=== PATIENT | female | born 1970 | race Caucasian/White ===

== ENCOUNTER → 2019-05-30 09:02 | Outpatient (CLI) | payer BC, SELFPAY ==
--- NOTE | 2019-05-30 09:06 | RAD_ITS ---
STUDY: X-RAY - LEFT FOOT CLINICAL: Female, 48 years old. Injury, fall last night -- pain distal medial tibia, anterior/medial w/o navicular pain and mild distal/anterior fibular with exquisite pain/hematoma at proximal cuboid TECHNIQUE: 3 view(s) of the foot. COMPARISON: None. FINDINGS: Normal talus, calcaneus, and tarsal bones. Normal visualized subtalar, talonavicular, calcaneocuboid, tarsal and tarsometatarsal articulations. Normal metatarsi. Normal metatarsophalangeal joint of the great toe. Normal tibial and fibular sesamoid bones. Normal interphalangeal joint of the great toe. Normal phalanges of the great toe. Normal second through fifth metatarsophalangeal joints. Normal interphalangeal joints and phalanges of the lesser toes. The soft tissue structures are unremarkable. RAD/Foot min 3 Views IMPRESSION: Normal x-ray examination of the foot. Electronically Signed: Guillaume Leroy, at 9:36 EDT , Service support ,
--- NOTE | 2019-05-30 09:06 | RAD_ITS ---
STUDY: X-RAY - LEFT ANKLE REASON FOR EXAM: Female, 48 years old. Injury, fall last night -- pain distal medial tibia, anterior/medial w/o navicular pain and mild distal/anterior fibular with exquisite pain/hematoma at proximal cuboid TECHNIQUE: 3 view(s) of the ankle. COMPARISON: None. FINDINGS: Normal visualized distal tibia and fibula. Normal medial and lateral malleoli. Normal tibiotalar articulation and ankle mortise. Normal visualized talus and calcaneus. The visualized subtalar, talonavicular, calcaneocuboid and tarsal articulations are normal. The soft tissue structures are unremarkable. RAD/Ankle min 3 Views IMPRESSION: Normal x-ray examination of the ankle. Electronically Signed: Guillaume Leroy, at 9:36 EDT , Service support ,
== END ==
PROVIDERS: PCP Family Medicine; Referring Provider Family Medicine; Visit Provider Family Medicine
DX: M25.572 Pain in left ankle and joints of left foot (principal); M79.672 Pain in left foot
CPT/HCPCS: 73610; 73630

== ENCOUNTER → 2019-07-27 12:34 | Outpatient (CLI) | payer BC, SELFPAY ==
--- NOTE | 2019-07-27 12:37 | BI_ITS ---
MAMMOGRAPHY - BILATERAL SCREENING REASON FOR EXAM: Female, 48 years old. Routine annual screening examination. PERTINENT HISTORY: Grandmother with breast cancer. TECHNIQUE: Digital bilateral breast brianna (3D mammographic acquisition) in the CC and MLO projections. 2-D mediolateral oblique (MLO) and craniocaudad (CC) views of both breasts were obtained. CAD: Full Field Digital Mammography with Computer Added Detection was performed. COMPARISON: Comparison is made with prior examination dated August 31, 2012. FINDINGS: Breast Composition: The breasts are heterogeneously dense, which may obscure small masses. There is a 2.7 cm x 2.2 cm slightly lobular nodule in the upper deep lateral aspect of the right breast. This also evidence of a 1.2 cm lymph node in the right axillary region. Correlation with ultrasound of these 2 densities is recommended. No other significant abnormalities are identified. BI/SCREEN MAMM (CAD) W/BRAINNA BILAT IMPRESSION: Nodular density in the upper outer quadrant of the right breast as well as in the right axillary region. Correlation with ultrasound is recommended. ASSESSMENT CATEGORY: BIRADS Category 0: Incomplete. Need additional imaging evaluation. A letter regarding these results will be sent to the patient by the facility within 30 days. Approximately 10% of breast cancers are not detected by mammography. A normal mammogram should not delay biopsy of a clinically suspicious abnormality. [id number] Electronically Signed: Guillaume Leroy, at 13:21 EDT , Service support ,
== END ==
PROVIDERS: PCP Family Medicine; Referring Provider Family Medicine; Visit Provider Family Medicine
DX: Z12.31 Encounter for screening mammogram for malignant neoplasm of breast (principal)
CPT/HCPCS: 77063; 77067

== ENCOUNTER → 2019-08-03 13:03 | Outpatient (CLI) | payer BC, SELFPAY ==
--- NOTE | 2019-08-03 13:16 | US_ITS ---
STUDY: ULTRASOUND BREAST - RIGHT REASON FOR EXAM: Female, 48 years old. Abnormal mammogram TECHNIQUE: Axial and longitudinal images of the RIGHT breast were performed with a high resolution ultrasound transducer. # OF IMAGES: 34 COMPARISON: Mammogram from 07/27/2019 FINDINGS: RIGHT Breast: The previously noted mass in the right upper outer quadrant on mammogram as shown by ultrasound to represent a hypoechoic irregular 3 x 8 x 3.3 x 2.3 cm partially shadowing nodule containing blood flow. This is concerning for neoplastic process and biopsy is recommended for further evaluation. Additionally, there are enlarged abnormal-appearing axillary lymph nodes. The largest 2 measure 2.8 x 2.3 x 1.57 m, and 1.9 x 1.7 x 1.8 cm. US/Breast Limited Unilateral IMPRESSION: Suspicious hypoechoic partially shadowing poorly defined mass in the upper outer quadrant of the right breast with blood flow. Biopsy recommended for further evaluation Suspicious enlarged right axillary lymph nodes ASSESSMENT CATEGORY: BIRADS Category 5: Highly Suggestive of Malignancy - Appropriate Action Should Be Taken. A letter regarding these results will be sent to the patient by the facility within 30 days. Electronically Signed: Alex Hogue MD at 14:15 EDT , Service support ,
== END ==
LOC: OPBI 13:04
PROVIDERS: PCP Family Medicine; Referring Provider Family Medicine; Visit Provider Family Medicine
DX: R92.8 Other abnormal and inconclusive findings on diagnostic imaging of breast (principal)
CPT/HCPCS: 76642

== ENCOUNTER → 2019-08-07 | Outpatient (CLI) | payer BC, SELFPAY ==
--- NOTE | 2019-08-07 | LYMN_PTH ---
PATIENT: CÉSAR CASTELLANOS LOC: [facility] U#:[id number] AGE/SX: 48/F ROOM: RE08/07/[address]: Dr. Leon Cabrera MD : 1970 BED: DIS: 08/07/2019 SPEC #: [id number] RECD: 08/07/19 12:26 STATUS: AZIZA MISHEL #: [id number] THOMAS: 08/07/19 00:[address]: Leon Cabrera DEPT: SURGICAL PATHOLOGY RECD BY: Rock Franklin ENTERED: 08/07/19 12:27 SP TYPE: LYMPH NODE OTHR DR: Dr. Yamila Roth MD Tissues: A - LYMPH NODE BIOPSY B - Right breast, NOS Procedures: Surgery Specimen Level IV HEADER OPERATION: Ultrasound-guided needle core biopsy of right breast and right axillary lymph node PRE-OP DIAGNOSIS: Abnormal right mammogram TISSUE SUBMITTED: A - Right breast tissue, B - Right axillary lymph node tissue MICROSCOPIC DIAGNOSIS A. Right breast tissue, core biopsy: Invasive ductal carcinoma with the following characteristics: Maximal length - 10 millimeters Nuclear grade - 3/3 Other findings - tumor necrosis. See comment. B. Right axillary lymph node, needle core biopsy: Metastatic carcinoma consistent with breast primary. See comment. AM:linda 08/08/19 COMMENT A. ER/NV/Rvu5tro studies are being performed on sections of tumor and the results from this study will be reported separately ([id number]). B. Immunohistochemistry ([id number]) supports the above diagnosis. Case has been reviewed in consultation with Dr. Murillo who concurs with the above diagnosis. IDC:SJ MICROSCOPIC DESCRIPTION Slides are reviewed. GROSS DESCRIPTION A - Received in fixative is one container labeled with the patient's name and designated right breast biopsy. The specimen consists of multiple elongated fragments of lawson-yellow fibroadipose tissue that in aggregate measure 2 x 0.3 x 0.1 cm. The entire specimen is submitted in one cassette. B - Received in fixative is one container labeled with the patient's name and designated right axillary lymph node. The specimen consists of multiple elongated fragments of lawson-yellow adipose tissue that in aggregate measure 2 x 0.4 x 0.1 cm. The entire specimen is submitted in one cassette. / MIKA:linda 08/07/19 TC:0 CPT: 62021 x2
--- NOTE | 2019-08-07 | IMM_PTH ---
PATIENT: CÉSAR CASTELLANOS LOC: [facility] U#:[id number] AGE/SX: 48/F ROOM: RE08/07/[address]: Dr. Leon Cabrera MD : 1970 BED: DIS: 08/07/2019 SPEC #: [id number] RECD: 08/08/19 11:58 STATUS: AZIZA REBecca #: [id number] THOMAS: 08/07/19 00:[address]: Leon Cabrera DEPT: IMMUNOHISTOCHEMISTRY RECD BY: Carisa Shoemaker ENTERED: 08/08/19 12:00 SP TYPE: IMMUNO OTHR DR: Dr. Yamila Roth MD Tissues: A - Right breast, NOS B - Axillary lymph node, NOS Procedures: CK8 (initial) CALPONIN-1 (add) CK5-6 (add) CK7 (add) LOPEZ-2 (add) E-CAD (add) ER (add) HER2 PETER (add) KI-67 (add) MAMM (add) P53 (add) AR (add) GATA3 (add) P40 (add) PHYSICIAN & [address] [address] SPECIMEN INFORMATION: Tissue Source: A - Right breast tissue, B - Right axillary lymph node tissue Clinical Info: Abnormal right mammogram Specimen Number: [id number] A & B CPT code: 52578 x2, 48472 x10, 40649 x3 METHODOLOGY: Deparaffinized sections of prefer/formalin-fixed tissue or PAP/DQ stained slides are incubated with monoclonal/polyclonal antibodies/oligonucleotide probes. Localization is made via biotin free immunoperoxidase method. Appropriate controls are performed and reacted as expected. Results on target cell population are indicated in the following table: RESULTS: ANTIBODY / CLONE RESULT Block A P53 (DO-7) negative Ki-67 (30-9) positive, 85% CK8 (17tzccP82) positive CK5-6 (D5 & 1684) negative Calponin-1 (YF639S) negative P40 (BC28) negative E-Cad (ECH-6) positive LOPEZ-2 (SP21) positive MORPHOMETRIC ANALYSIS ER (clone 6F11) 0% AR (clone 16/1E2) 0% Her-2Neu (clone CB11) 3+ Block B GATA3 (L50-823) positive CK7 (OV-TL12/30) positive CK8 (57yrxgG29) positive Mammaglobin (31A5) positive The prognostic test for HER2 is performed on formalin-fixed paraffin embedded tissue. A 3+ (positive) staining pattern is defined as intense, homogeneous, complete, circumferential membranous staining in >10% of contiguous tumor cells. A similar weak (2+) staining pattern is interpreted as equivocal. ANA follow-up testing is recommended for all equivocal cases. Positivity/negativity for ER/AR is reported if > or < 1% of the tumor cells are immuno- reactive, respectively. The ASCO/CAP criteria is used for scoring. Reference: Journal of Clinical Oncology, 2013; 31:6567-1507 & 2010; 16:1758-7558. Duration of fixation: 5.5 Hrs; Sample Adequate: Yes. These assays have not been validated on decalcified tissues. Results should be interpreted with caution given the likelihood of false negativity on decalcified specimens. These tests were developed and their performance characteristics determined by [facility]. They may not have been cleared or approved by the U.S. Food and Drug Administration. The FDA has determined that such clearance or approval is not necessary. The above immunohistochemical/dualISH markers are ordered and reviewed by the Pathologist. INTERPRETATION: A. Right breast tissue, core biopsy: Invasive ductal carcinoma, nuclear grade 3/3. Negative for estrogen receptors (unfavorable prognostic indicator). Negative for progesterone receptors (unfavorable prognostic indicator). Positive for overexpression of SIJ2qri. B. Right axillary lymph node tissue, core biopsy: Metastatic breast carcinoma. AM:linda 08/09/19
[2019-08-07 11:06] VITALS: BMI 25.5
== END | disposition home or self-care (01) ==
LOC: LABSPEC 12:16
PROVIDERS: PCP Family Medicine; Referring Provider Surgery; Visit Provider Surgery
DX: R92.8 Other abnormal and inconclusive findings on diagnostic imaging of breast (principal)
CPT/HCPCS: 88305; 88341; 88342

== ENCOUNTER → 2019-08-21 14:38 | Outpatient (CLI) | payer BC, SELFPAY ==
[2019-08-15 15:34] VITALS: BMI 27.2
--- NOTE | 2019-08-21 14:39 | CT_ITS ---
STUDY: CT CHEST WITH CONTRAST REASON FOR EXAM: Female, 48 years old. Breast cancer screening. RADIATION DOSAGE (If Supplied By Facility): CTDIvol = ( 11.79 ) mGy, DLP = ( 271.31 ) mGycm TECHNIQUE: Transaxial imaging was performed following intravenous administration of Oral and amp; IV Readi-CAT and amp; 100mL Isovue-300. Multiplanar coronal and sagittal images were reformatted. Individualized dose optimization techniques were used for this CT. COMPARISON: CT of the abdomen and pelvis, August 21, 2019. FINDINGS: The lungs are normal. There is a 2 x 0.9 x 0.9 cm density along the posterior aspect of the diaphragm (image 76, series 6. It is uncertain whether this represents a pleural-based mass or small diaphragmatic hernia. There is no other evidence of pleural abnormality. Normal heart and pericardium. There is paratracheal, precarinal, AP window and subcarinal lymphadenopathy Normal hilar regions. Normal enhanced pulmonary arteries. Normal aorta arch and descending thoracic aorta. Normal osseous structures. No evidence of bony metastases. There are large right axillary lymph nodes. The largest is bilobed and measures 2.4 x 1.7 x 2.9 cm (image 98 of series 601). There are normal appearing lymph nodes in left axilla. There is a spiculated mass in the lateral aspect of the right breast measuring 3.4 x 2 x 3.7 cm. There is skin thickening of the breast. There is a 3 mm hypodensity in segment 8 of the liver thought to be a cyst. CT/Chest WITH Contrast IMPRESSION: 1. Large spiculated mass in the right breast. 2. Abnormal right axillary lymph nodes. 3. Mediastinal lymphadenopathy. 4. No evidence of pulmonary disease. 5. Pleural-based lesion on the right diaphragm. See discussion above. 6. Normal osseous structures. Electronically Signed: Edward Morillo DO at 16:11 EDT Tel [phone], Service support ,
--- NOTE | 2019-08-21 14:39 | CT_ITS ---
STUDY: CT ABDOMEN AND PELVIS WITH CONTRAST REASON FOR EXAM: Female, 48 years old. Staging. Contrast cancer. RADIATION DOSAGE (If Supplied By Facility): CTDIvol = ( 13.92 ) mGy, DLP = ( 697.09 ) mGycm TECHNIQUE: Transaxial images were obtained from the dome of the diaphragm to the symphysis pubis with oral contrast. Oral and amp; IV Readi-CAT and amp; 100mL Isovue-300 was administered. Sagittal and coronal images were reconstructed. Individualized dose optimization techniques were used for this CT. COMPARISON: CT of the chest, August 21, 2019 FINDINGS: The visualized lung bases are unremarkable. There is a 0.9 x 0.9 x 0.2 cm density along the posterior right diaphragmatic surface best seen on image 7 using lung window may be a pleural-based density or a small herniation of the diaphragm. The visualized portions of the heart are within normal limits. There is a 3 mm hypodensity in segment 8 of the liver thought to represent a small cyst. Liver is otherwise uniform without mass. The gallbladder is poorly distended but grossly normal. There is no extrahepatic biliary ductal dilatation. Normal spleen. Normal pancreas. Normal bilateral adrenal glands. Normal right kidney. Normal left kidney. Normal visualized stomach. Normal small intestine. Normal colon. The appendix is visualized and appears normal. Normal abdominal aorta. Normal inferior vena cava. Normal retroperitoneum. Normal urinary bladder. Uterus is anteverted and midline. There is prominence of the endometrial canal which measures 2.3 cm in thickness. The myometrium appears normal. There is a 1.9 x 1.1 x 2.1 cm right ovarian cyst. There is a 5 mm cyst in the left ovary. There is no pelvic lymphadenopathy. No free air or free fluid is seen within the peritoneal cavity. Normal abdominal wall. No bony metastases. There is minimal degenerative changes of the thoracic spine. CT/Abdomen/Pelvis WITH Contrast IMPRESSION: 1. Marked thickening of the endometrium. 2. Bilateral ovarian cysts. 3. Small density along the right pleural surface. It is uncertain whether this represents a pleural mass or small herniation. 4. Hypodensity in the right liver thought to be a cyst. This is too small to characterize. 5. Minimal degenerative changes of the lumbar spine. Electronically Signed: Edward Morillo DO at 16:06 EDT Tel [phone], Service support ,
[2019-08-21 15:20] LABS: CREATININE FINGERSTICK 0.7 mg/dL (0.55-1.02)
== END ==
LOC: CT 14:39
PROVIDERS: PCP Family Medicine; Referring Provider Internal Medicine Medical Oncology; Visit Provider Internal Medicine Medical Oncology
DX: Z01.818 Encounter for other preprocedural examination (principal); C50.411 Malignant neoplasm of upper-outer quadrant of right female breast
CPT/HCPCS: 71260; 74177; Q9967

== ENCOUNTER → 2019-08-23 13:54 | Outpatient (CLI) | payer BC, SELFPAY ==
[2019-08-15 15:34] VITALS: BMI 27.2
--- NOTE | 2019-08-23 13:56 | ECHODONC_ITS ---
Reason For Study: Pre Chemo Procedure This was a 2D Doppler, Color Flow transthoracic echocardiogram. Myocardial strain analysis was performed in this exam to aid in the assessment of cardiac function. Exam performed in department. Left Ventricle Normal LV size. Left ventricular systolic function is normal. The estimated ejection fraction is 65 %. No regional wall motion abnormalities noted. Right Ventricle Normal RV size. Normal systolic function. Atria Normal left atrium. Normal right atrium. Mitral Valve Normal mitral valve. Tricuspid Valve Normal tricuspid valve. Aortic Valve Normal aortic valve. Trisinus/trileaflet aortic valve. Pulmonic Valve Normal pulmonic valve. Great Vessels Normal aortic root. The pulmonary artery is normal size. Normal inferior vena cava. Pericardium/Pleural No pericardial effusion. MMode/2D Measurements & Calculations LVIDd: 3.9 cm IVSd: 1.0 cm Ao root diam: 3.5 cm LVIDs: 2.6 cm LVPWd: 0.86 cm LA dimension: 3.1 cm RVDd: 3.2 cm FS: 32.3 % LAV(MOD-sp2): 34.5 ml LVAd ap4: 25.9 cm2 SV(MOD-sp4): 45.5 ml EDV(MOD-sp4): 73.9 ml EDV(sp4-el): 75.7 ml LVAs ap4: 13.4 cm2 ESV(MOD-sp4): 28.3 ml ESV(sp4-el): 28.8 ml EF(MOD-sp4): 61.6 % EF(sp4-el): 61.9 % SV(sp4-el): 46.9 ml Time Measurements MV dec time: 0.20 sec Doppler Measurements & Calculations MV E max brendon: 85.7 cm/sec Lat Peak E' Brendon: 9.3 cm/sec Med Peak E' Brendon: 6.5 cm/sec MV A max brendon: 115.9 cm/sec E/E' lat: 9.2 E/E' med: 13.2 MV E/A: 0.74 MV V2 max: 127.7 cm/sec MV P1/2t max brendon: 112.2 cm/sec Ao V2 max: 133.9 cm/sec MV max P.5 mmHg MV P1/2t: 68.7 msec Ao max P.2 mmHg MV V2 mean: 75.4 cm/sec MV dec slope: 478.4 cm/sec2 MV mean P.7 mmHg MV V2 VTI: 27.0 cm MVA(P1/2t): 3.2 cm2 LV V1 max: 116.8 cm/sec PA V2 max: 125.2 cm/sec TR max brendon: 234.4 cm/sec LV V1 max P.5 mmHg TR max P.0 mmHg Interpretation Summary Normal LV size. Left ventricular systolic function is normal. The estimated ejection fraction is 65 %. The global longitudinal strain is normal. The global longitudinal strain = -22.4 % (normal). Ordering Physician: Tremaine Morocho Referring Physician: Tremaine Morocho Performed By: Chip Mercado RCS
== END ==
LOC: CVS 13:56
PROVIDERS: PCP Family Medicine; Referring Provider Internal Medicine Medical Oncology; Visit Provider Internal Medicine Medical Oncology
DX: Z01.818 Encounter for other preprocedural examination (principal); C50.511 Malignant neoplasm of lower-outer quadrant of right female breast
CPT/HCPCS: 93306; 93356

== ENCOUNTER → 2019-08-24 10:24 | Outpatient (CLI) | payer BC, SELFPAY ==
[2019-08-15 15:34] VITALS: BMI 27.2
--- NOTE | 2019-08-24 10:24 | NM_ITS ---
CLINICAL: 48-year-old female with reported history of carcinoma of the breast. WHOLE BODY 99m Tc MDP RADIONUCLIDE BONE SCINTIGRAPHY COMPARISON: CT of the chest, abdomen and pelvis reports 08/21/2019 FINDINGS: Following the intravenous administration of 26.3 mCi of 99m Tc MDP, whole body bone images reveal: 1. Increased radiopharmaceutical concentration is identified in the acromioclavicular and sternoclavicular compartments of both shoulders, the left hand, patellofemoral compartments of both knees, the right elbow. 2. The remaining skeletal structures are scintigraphically unremarkable with normal-appearing renal images and urinary bladder activity identified. There is evidence of bilateral hyperostosis frontalis. NM/Bone Scan Whole Body IMPRESSION: 1. The increase in radiopharmaceutical concentration identified in the bilateral shoulders, both knees, right elbow and left hand is commensurate with the presence of degenerative arthritis. 2. There is no definitive typical scintigraphic evidence of diffuse axial skeletal metastatic disease on the current examination. Electronically Signed: Herber St DO at 22:55 EDT Tel , Service support ,
== END ==
LOC: NM 10:24
PROVIDERS: PCP Family Medicine; Referring Provider Internal Medicine Medical Oncology; Visit Provider Internal Medicine Medical Oncology
DX: C50.411 Malignant neoplasm of upper-outer quadrant of right female breast (principal)
CPT/HCPCS: 78306

== ENCOUNTER 2019-09-04 11:53 | Day surgery (SDC) | payer BC, SELFPAY ==
[2019-08-15 15:34] VITALS: BMI 27.2
[2019-08-28 09:48] VITALS: BMI 27.2
[2019-09-04] VITALS (8 sets, daily range): BP systolic 140–173; BP diastolic 82–105; PULSE 81–94; RESP 15–18; TEMP 36.4–37.1; O2SAT 99–100; BMI 27.3
[2019-09-04 12:23] LABS: Internal QC Validated? YES +Cl - CLEAR BKGD; Pregnancy, Urine Negative Negative
[2019-09-04] MEDS: Lactated Ringers 1,000 ML 100 ML IV (12:35)
--- NOTE | 2019-09-04 13:24 | PCM.HP.STD ---
Problem List (1) Breast cancer metastasized to axillary lymph node Status: Acute Qualifiers: Laterality: right History of Present Illness Date of Admission: 09/04/19 The patient is a 48 year old F here for left chest port placement. The patient has metastatic breast cancer to the axillary lymph nodes. She is going to undergo chemotherapy neoadjuvant. Past Medical History Medical History: Medical History (Last Reviewed 08/28/19 @ 09:47 by Nellie Andrea) Nipple discharge (Acute) N64.52 Irregular menstrual bleeding (Inactive) N92.6 Abnormal ultrasound of breast (Acute) R92.8 Abnormal mammogram of right breast (Acute) R92.8 Breast mass, right (Acute) N63.10 Allergies No Known Allergies Allergy (Verified 09/04/19 12:09) Home Medications: Ambulatory Orders Medication Instructions Recorded lorazepam 1 mg tablet 1 mg PO TID PRN #10 tab 08/07/19 oxycodone 5 mg tablet 5 mg PO Q8H PRN #7 tab 08/07/19 Multivitamin [Multiple Vitamins] 1 ea PO DAILY 08/15/19 Surgical History: Surgical History (Last Reviewed 08/28/19 @ 09:47 by Nellie Andrea) Hx of left knee surgery (Acute) Z98.890 Hx of tonsillectomy (Acute) Z90.89 History of right breast biopsy Onset Date: ~07/2019 Z98.890 Smoking Status: Former smoker Review of Systems Constitutional: Denies: Anorexia, Fever Eyes: Denies: Blurred vision HEENT: Denies: Difficulty Swallowing Cardiovascular: Denies: Chest Pain Respiratory: Denies: Cough, Shortness of Breath Gastrointestinal: Denies: Abdominal Pain Skin: Denies: Dryness, Jaundice Neurological: Denies: Balance problems Psychiatric: Denies: Anxiety Hematologic/ Lymphatic: Denies: Anemia VTE Information - Inpt Only VTE Present on Admission: No VTE Mechan Device Prophylaxis: SCD's - Physical Exam Vitals/I&O's: Vital Signs Temp Pulse Resp BP Pulse Ox 98.8 F 89 15 145/82 H 100 09/04/19 12:20 09/04/19 12:20 09/04/19 12:20 09/04/19 12:20 09/04/19 12:20 Oxygen Delivery Method Room Air Weight: 152 lb 5.431 oz Body Mass Index (BMI) 27.3 General: Alert, Oriented x3 Neck: No JVD Lungs: Normal air movement Abdomen: Soft, Non Tender, Non-Distended Extremities: No clubbing Musculoskeletal: No Muscle Wasting Lymphatic: - - Axillary lymphadenopathy on the right Neurological: Cranial nerves II-XII grossly intact Psych/Mental Status: Normal Affect Laboratory Results 09/04/19 12:15: Urine Test Negative Current Medications Lactated Ringer's () 1,000 mls @ 100 mls/hr IV .Q10H ALLISON Last Admin: 09/04/19 12:35 Dose: 100 mls/hr Documented by: Assessment/Plan All Active Problems (Last Reviewed 08/28/19 @ 09:47 by Nellie Andrea) Breast cancer, right (Acute) Breast cancer metastasized to axillary lymph node (Acute) Hx of left knee surgery (Acute) Hx of tonsillectomy (Acute) Nipple discharge (Acute) Abnormal ultrasound of breast (Acute) Abnormal mammogram of right breast (Acute) Breast mass, right (Acute) 48-year-old female with breast cancer 1. Patient is in need for chemotherapy. I discussed left chest port placement with the patient in detail. I discussed the risks including not limited to bleeding, infection, pneumothorax, DVT, line infection. The patient will have a left chest port placement as the patient is likely going to require a modified radical mastectomy on the right after neoadjuvant therapy. We discussed the current risks associated with COVID-19. While it is understood that there is a community spread of COVID-19, the risk of yevgeniy COVID-19 while at [facility] ([facility]) is very low; however, the risk cannot be completely mitigated because of the community spread of the disease. We discussed in detail the risk of exposure to and/or potential harm posed by the COVID-19 virus with having a surgery/procedure at this time versus the risk of delaying the surgery/procedure. It is not possible to know either the risk of delaying the surgery or procedure or chance of getting an infection with perfect accuracy, but a joint decision was made to proceed at this time with the scheduled surgery/procedure as indicated on the consent form. Patient was notified that we will need to comply with any screening or testing [facility] wishes to perform or that surgery may be delayed for any positive results. Leon Cabrera MD Pager: [facility] [address] [place] [address], [address] [place] [address] Office:
[2019-09-04] MEDS: Cefazolin 2 GM in 0.9% Normal Saline 100 ML IV (13:47)
--- NOTE | 2019-09-04 14:33 | PCM.OPRPT ---
Problem List (1) Breast cancer metastasized to axillary lymph node Status: Acute Qualifiers: Laterality: right Report of Operation Date of Procedure: 09/04/19 Pre-Operative Diagnosis: Right breast cancer metastasized to lymph nodes. Need for vascular access port Post-Operative Diagnosis: Need for vascular access port Surgery/Procedure Performed:: Ultrasound and fluoroscopy guided left chest port placement utilizing left IJ Description of Procedure: After obtaining informed consent patient was brought back to the operating room MAC anesthesia was induced and the left chest and neck were prepped in normal sterile fashion. Ultrasound was used to evaluate both IJs and the left IJ was selected. Next, using a needle, the left IJ was accessed and a guidewire was passed on into the superior vena cava under fluoroscopy guidance. A small incision was made over the puncture site and the dilator introducer was placed over the guidewire. Next this was capped and the pocket was made for the port. 1% lidocaine with epinephrine was injected in the proposed port site. An incision was made with scalpel. Electrocautery was used to make a pocket under the skin and subcutaneous tissue. Hemostasis was obtained. Next, the catheter was tunneled up to the neck incision site and placed through the introducer. The peel-away introducer was removed and the position of the catheter was confirmed on fluoroscopy. Next, the catheter was trimmed and attached to the port with the locking device. Interrupted 2-0 Vicryl sutures were used to anchor the port to the chest wall and then the port was placed inside the pocket. The pocket was then flushed with saline and the port irrigated with saline. There was good blood return and the port flushed easily. Next, heparin was injected into the port. The skin was closed with subcutaneous interrupted 3-0 Vicryl sutures. A single 3-0 Vicryl sutures placed under the skin at the neck incision site. Steri-Strips were placed as well as op sites. Patient tolerated procedure well, was taken to PACU in stable condition. Chest x-ray will be obtained. Grafts/Implants Used: 8 [employer] - Admit VTE Documentation VTE Mechan Device Prophylaxis: SCD's
--- NOTE | 2019-09-04 14:34 | DCINST_ITS ---
Discharge Diet: No Restrictions - Pain medication may cause nausea. You should typically eat light foods as you take your pain medication. Discharge Activity: Return to Normal Activity, May Shower - with your bandage in place in 1-2 days after surgery. DO NOT SHOWER WHEN YOUR PORT IS ACCESSED. Call your doctor if your incision/area has: Continuous Slow Oozing, Sudden Increased Bleeding, Increased Pain/ Swelling, Increased Redness Call your doctor if you observe: Fever of 101 or Higher Remove Dressing in (days):: 3 - When you remove the bandage, leave the steri- strips intact until they fall off. Allergies/Adverse Reactions: Allergies No Known Allergies Allergy (Verified 09/04/19 12:09) Medications to take at Discharge lorazepam 1 mg tablet 1 mg PO TID PRN #10 tab 08/07/19 oxycodone 5 mg tablet 5 mg PO Q8H PRN #7 tab 08/07/19 Multivitamin [Multiple Vitamins] 1 ea PO DAILY 08/15/19 Test Results: Test results from this visit will be discussed in further detail at your follow- up appointment, if applicable. Please Follow Up With: Leon Cabrera MD When: Please call to schedule 2 week follow up appointment. [phone]
--- NOTE | 2019-09-04 14:36 | RAD_ITS ---
STUDY: X-RAY CHEST REASON FOR EXAM: Female, 48 years old. POST VASCULAR PORT PLACEMENT. TECHNIQUE: Single AP portable view of the chest. COMPARISON: None. FINDINGS: A left-sided portacatheter has been placed. The tip is in the proximal portion of the superior vena cava. The lungs are clear and expanded. There is no demonstrated pleural abnormality. Normal size heart. Prominence of the right paratracheal region. Normal visualized pulmonary arteries. Normal visualized aortic arch and descending thoracic aorta. Normal visualized thoracic spine. Normal visualized ribs, clavicles, and shoulders. There is no demonstrated abnormality of the visualized soft tissue structures of the upper abdomen. RAD/CXR for Line Placement IMPRESSION: The tip of the left portacatheter is in the proximal portion of the superior vena cava. Prominence of the right paratracheal region. Electronically Signed: Guillaume Leroy, at 15:34 EDT , Service support ,
== END 2019-09-04 15:40 | disposition home or self-care (01) ==
LOC: SDC 11:57 → AC 11:57
PROVIDERS: Anesthesiology; PCP Family Medicine; Referring Provider Surgery; Visit Provider Surgery
PROC: (CPT 36561; principal; 2019-09-04 13:20)
DX: Z45.2 Encounter for adjustment and management of vascular access device (principal); C77.3 Secondary and unspecified malignant neoplasm of axilla and upper limb lymph nodes; C50.911 Malignant neoplasm of unspecified site of right female breast; Z11.59 Encounter for screening for other viral diseases; Z87.891 Personal history of nicotine dependence
CPT/HCPCS: 36561; 71045; 77001; 81025; 87635; G2023; J7120; C1788; U0003

== ENCOUNTER → 2019-09-07 | Outpatient (CLI) | payer BC, SELFPAY ==
[2019-09-04 12:20] VITALS: BMI 27.3
--- NOTE | 2019-09-07 | EMB_PTH ---
PATIENT: CÉSAR CASTELLANOS [facility] U#:[id number] AGE/SX: 48/F ROOM: RE09/07/[address]: Dr. Kishore Laguna MD : 1970 BED: DIS: 09/07/2019 SPEC #: [id number] RECD: 09/07/19 17:06 STATUS: AZIZA REBecca #: [id number] THOMAS: 09/07/19 00:[address]: Kishore Laguna DEPT: SURGICAL PATHOLOGY RECD BY: Rock Franklin ENTERED: 09/08/19 07:59 SP TYPE: ENDOM BX/C CAITLIN DR: Dr. Yamila Roth MD Tissues: Endometrium, NOS Procedures: Surgery Specimen Level IV HEADER OPERATION: Endometrial biopsy PRE-OP DIAGNOSIS: N92.6 N93.9 TISSUE SUBMITTED: Endometrial biopsy MICROSCOPIC DIAGNOSIS Endometrium, biopsy: Secretory endometrium with focal stromal breakdown. AM:linda 09/11/19 MICROSCOPIC DESCRIPTION Slides are reviewed. GROSS DESCRIPTION Received in fixative is one container labeled with the patient's name and designated endometrial biopsy. The specimen consists of multiple irregular fragments of light to dark lawson soft tissue that in aggregate measure 2.2 x 1.8 x 0.2 cm. The specimen is totally submitted in one cassette. / AM:linda 09/08/19 TC:5 CPT: 71425
[2019-09-12 16:58] LABS: HPV Reflexed? NOT INDICATED
== END | disposition home or self-care (01) ==
LOC: LABSPEC 16:27
PROVIDERS: PCP Family Medicine; Visit Provider Obstetrics & Gynecology
DX: N92.6 Irregular menstruation, unspecified (principal); N93.9 Abnormal uterine and vaginal bleeding, unspecified; Z12.4 Encounter for screening for malignant neoplasm of cervix
CPT/HCPCS: 88175; 88305; G0145

== ENCOUNTER → 2019-09-13 14:27 | Outpatient (CLI) | payer BC, SELFPAY ==
[2019-09-04 12:20] VITALS: BMI 27.3
--- NOTE | 2019-09-13 14:28 | CT_ITS ---
STUDY: CT CHEST WITH CONTRAST REASON FOR EXAM: Female, 48 years old. RIGHT SIDED BREAST CANCER- NEW DIAGNOSIS. RECENT PORT PLACEMENT WITH SWELLING IN NECK AREA RADIATION DOSAGE (If Supplied By Facility): CTDIvol = ( 10.28 ) mGy, DLP = ( 444.46 ) mGycm TECHNIQUE: Transaxial imaging was performed following intravenous administration of IV 100mL Isovue-300. Multiplanar coronal and sagittal images were reformatted. Individualized dose optimization techniques were used for this CT. COMPARISON: PET/CT dated 09/05/[address] of the chest and abdomen dated 08/21/2019 FINDINGS: There is a stable fat-containing subpleural nodule within the right lower lobe with an appearance consistent with a small diaphragmatic hernia. There is no demonstrated pleural abnormality. Normal heart and pericardium. There is stable paratracheal, precarinal, aortopulmonary window and subcarinal lymphadenopathy. There are stable enlarged right hilar lymph nodes. There are stable pathologically enlarged lymph nodes within the right axilla and right subpectoral region. There is an enhancing stable mass within the right breast. There is stable right breast skin thickening. Normal enhanced pulmonary arteries. Normal aorta arch and descending thoracic aorta. There is a Mediport within the left chest wall with its tip terminating within the superior vena cava. Stable osseous structures. The limited images of the upper abdomen demonstrate a diffusely low attenuation liver consistent with fatty infiltration. CT/Chest WITH Contrast IMPRESSION: Stable pathologically enlarged mediastinal, right hilar, right axillary and right subpectoral lymph nodes. Stable right breast mass consistent with known neoplastic process associated with right breast skin thickening. Fatty infiltration of the liver. Electronically Signed: Pao Richard MD at 16:28 EDT Tel , Service support ,
[2019-09-13] MEDS: 0.9% Saline Lock 10 ML Syringe IV (16:42)
== END ==
PROVIDERS: PCP Family Medicine; Referring Provider Surgery; Visit Provider Surgery
DX: T81.9XXA Unspecified complication of procedure, initial encounter (principal)
CPT/HCPCS: 71260; Q9967; A4216

== ENCOUNTER → 2019-09-21 07:28 | Outpatient (CLI) | payer BC, SELFPAY ==
[2019-09-19 10:16] VITALS: BMI 27.1
--- NOTE | 2019-09-21 07:29 | CT_ITS ---
STUDY: CT CHEST WITH CONTRAST REASON FOR EXAM: Female, 48 years old. PT STATED LEFT UPPER CHEST AND NECK SWELLING, PAIN IN LEFT ARM, ALL POST PORT PLACEMENT. RADIATION DOSAGE (If Supplied By Facility): CTDIvol = ( 13.82 ) mGy, DLP = ( 451.41 ) mGycm TECHNIQUE: Transaxial imaging was performed following intravenous administration of IV 100mL Isovue-300. Multiplanar coronal and sagittal images were reformatted. Individualized dose optimization techniques were used for this CT. COMPARISON: Comparison is made with prior examination dated 09/13/2019. FINDINGS: A left-sided portacatheter is seen. The tip is in the superior vena cava. Enlarged right axillary lymph nodes. The largest lymph node presently measures 2 cm x 1.3 cm. This has decreased in size as compared to prior study. Stable appearance of the mass in the right breast. The lungs are normal. There is no demonstrated pleural abnormality. Normal heart and pericardium. Slight decrease in size of the precarinal lymph node. It presently measures 1.6 times by 2.9 cm. Normal hilar regions. Normal enhanced pulmonary arteries. Normal aorta arch and descending thoracic aorta. Normal osseous structures. Fatty replacement of the liver. CT/Chest WITH Contrast IMPRESSION: Interval decrease in size of the right axillary lymph node as well as the subcarinal lymph node. Stable mass in the right breast as well as overlying skin thickening. Fatty infiltration of the liver. Electronically Signed: Guillaume Leroy, at 8:12 EDT , Service support ,
== END ==
PROVIDERS: PCP Family Medicine; Referring Provider Nurse Practitioner Family; Visit Provider Nurse Practitioner Family
DX: R22.2 Localized swelling, mass and lump, trunk (principal); Z95.828 Presence of other vascular implants and grafts
CPT/HCPCS: 71260; Q9967

== ENCOUNTER → 2019-09-25 15:23 | Outpatient (CLI) | payer BC, SELFPAY ==
[2019-09-25 13:03] VITALS: BMI 27.1
--- NOTE | 2019-09-25 15:23 | VDUE_ITS ---
Reason For Study: Swelling Right Proximal Left Proximal Right subclavian vein is spontaneous, widely Acute deep vein thrombosis is noted in the patent, phasic, with no intraluminal left internal jugular vein, Sublclavian vein, echogenicity noted. Axillary vein and Brachial vein prox-mid. Distal brachial vein is compressible. Left Arm Left cephalic vein is compressible. Left basilic vein is compressible. Left Lower Arm Left radial vein is compressible. Left ulnar vein is compressible. Patient Safety Prelim to Ashley. Interpretation Summary Acute deep venous thrombosis left internal jugular and subclavian and axillary and proximal to mid brachial vein Patent and compressible left cephalic and basilic veins Normal flow pattern right subclavian vein Ordering Physician: Miriam Sim Referring Physician: Yamila Roth M.D. Performed By: Daniella Govea RVT ?
== END ==
PROVIDERS: PCP Family Medicine; Visit Provider Nurse Practitioner Family
DX: R22.2 Localized swelling, mass and lump, trunk (principal)
CPT/HCPCS: 93971

== ENCOUNTER → 2019-10-19 07:51 | Outpatient (CLI) | payer BC, SELFPAY ==
[2019-10-05 08:32] VITALS: BMI 27.2
--- NOTE | 2019-10-19 07:52 | CT_ITS ---
STUDY: CT CHEST WITH CONTRAST REASON FOR EXAM: Female, 48 years old. BREAST CA, RESPONSE TO TREATMENT RADIATION DOSAGE (If Supplied By Facility): CTDIvol = ( 8.44 ) mGy, DLP = ( 240.25 ) mGycm TECHNIQUE: Transaxial imaging was performed following intravenous administration of IV. Multiplanar coronal and sagittal images were reformatted. Individualized dose optimization techniques were used for this CT. COMPARISON: Comparison is made with prior study dated 09/21/2019. FINDINGS: A left-sided portacatheter is seen with the tip in the superior vena cava. There now is evidence of skin thickening of the right breast. The previously seen 3.1 cm x 2.3 cm mass in the right breast is not seen at this time. Mildly enlarged right axillary lymph nodes. The lungs are normal. There is no demonstrated pleural abnormality. Normal heart and pericardium. Stable precarinal lymph node. Normal hilar regions. Normal enhanced pulmonary arteries. Normal aorta arch and descending thoracic aorta. Normal osseous structures. There is no demonstrated abnormality of the visualized upper abdomen. CT/Chest WITH Contrast IMPRESSION: Status post resection of the right breast mass with postoperative changes in the right breast. Moderately large residual right axillary lymph nodes. Electronically Signed: Guillaume Leroy, at 9:24 EDT , Service support ,
[2019-10-19] MEDS: 0.9 % NaCl (Sterile) Posiflush 10 mL IV (08:06)
== END ==
PROVIDERS: PCP Family Medicine; Referring Provider Internal Medicine Medical Oncology; Visit Provider Internal Medicine Medical Oncology
DX: C50.411 Malignant neoplasm of upper-outer quadrant of right female breast (principal); C77.9 Secondary and unspecified malignant neoplasm of lymph node, unspecified; Z79.899 Other long term (current) drug therapy
CPT/HCPCS: 71260; Q9967

== ENCOUNTER → 2019-10-24 08:52 | Outpatient (CLI) | payer BC, SELFPAY ==
[2019-10-05 08:32] VITALS: BMI 27.2
--- NOTE | 2019-10-24 08:52 | VDUE_ITS ---
Reason For Study: Pain Left Proximal Acute deep vein thrombosis in the left internal jugular vein, subclavian vein. Jugular vein is no longer dilated. Subclavian vein has minimal fow throughout. Axillary vein is partially compressible with flow noted. Left Arm Left brachial vein is compressible. Left cephalic vein is compressible. Left basilic vein is compressible. Left Lower Arm Left radial vein is compressible. Left ulnar vein is compressible. Patient Safety Compared to 09/25/2019. Prelim to Luz Elena. Interpretation Summary Deep venous thrombosis left internal jugular and subclavian veins. Patent and compressible left cephalic and basilic veins Some improvement noted since the previous exam of 09/25/19 Ordering Physician: Tremaine Morocho Referring Physician: Yamila Roth M.D. Performed By: Daniella Govea RVT ?
== END ==
PROVIDERS: PCP Family Medicine; Referring Provider Internal Medicine Medical Oncology; Visit Provider Internal Medicine Medical Oncology
DX: I82.A12 Acute embolism and thrombosis of left axillary vein (principal); M79.622 Pain in left upper arm
CPT/HCPCS: 93971

== ENCOUNTER 2019-11-07 12:59 | Outpatient (RCR) | payer BC, SELFPAY ==
[2019-11-01 15:18] VITALS: BMI 27.3
[2019-11-03 08:48] VITALS: BMI 27.3
--- NOTE | 2019-11-08 12:56 | HP.OTEVAL_ITS ---
Patient's Visit Information CÉSAR CASTELLANOS is a 49 year old F, referred to Occupational Therapy by Dr. Tremaine Morocho MD, with a diagnosis of acute emobolism & thrombosis of left axillary vain. Date of Evaluation: 11/07/19 Occupational Therapist: Brandy Paz, OTR/Olga, CHT - Subjective This 49 year old female was seen for OT eval with dx of a left acute embolie/thrombosis of left axillary vain- pt dx in August with right breast cancer. states she had fist tx sep 13. and pt states is half way done. pt states will meet with surgeon to see where she will go from there. ( if pt will need sx for mass removal). pt states she began having pain in her UE and neck region- flet like a deep muslce crap. After US they found large clot from juglar to elbow- pt went about three weeks until they found the clot. pt states because of the pain she wasnt using her arm much and was limited with her ROM states she was only able to raise her left arm to about 80-90* Pt states now that the clot is dissolving the pain is better and she demo full left UE ROM. 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 Bone scan on 08/24/[address] scan done on 08/21/2019 showed RLL nodule, mediastinal adenopathy, R breast mass and R axillary nodes. She had a PET/CT on 09/05/19 which demonstrated uptake in the right breast, right lower-mid axilla and retropectoral LN (SUV 22.3) and carinal, subcarinal mediastinum (SUB 11.4). - Pain left UE 0 Pain Intensity Range: 2 - ROM Shoulder: Right/left WNL Elbow: Right/left WNL Forearm: Right/left WNL Wrist: Right/left WNL - Strength Farmworker: right 70 left 55# Lateral Pinch: right 18# left 18# Tripod Pinch: right 22# left 20# - Lymphedema (Circumferential Measure) MCP: right 20cm left 19.5cm Wrist: right 15.5cm left 15.5cm Lower forearm: right 16cm left 16.5cm Largest forearm: right 24.5cm left 25.5cm Elbow: right 23.5cm left 24.5cm Largest humerus: right 28.5cm left 29cm Axcillary: right 34cm left 34cm Upper Exremity Comments: pt demo with left side upper trap edema compaired to right. - Sensation Sensation Comments: denies tingling & numbness- pt reports feeling of tightness/stiffness in hands. 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 to return as healing from clot continues. Pt would benefit from HEP for ROM and nerve glides. Today therapist ed. pt on skin care, nerve glides and AROM ex for left UE. Pt given handout and demo good understanding of exercises. Therapsit ed. pt on slight edema noted by measurments and ed. pt on if swelling continues after clot has dissolved she may benefit from compression garment on left UE. pt receptive but agree to wait and see how clot dissolves first. Therapist advised pt to take measurments weekly to monitor her swelling. In regards to swelling in upper trap therapsist advised kinesio tape as needed if this raised area did not decrease as clot dissolves. pt receptive- pt to cont with HEP and call with questions/concerns with edema. pt agree to POC Rehabilitation Potential: Good - Anticipated Interventions A/AAROM/PROM, Home Program - Visit Plan TEXT: Thank you for the opportunity to evaluate your patient. For Medicare and Medicare HMO plans, please review the plan of care and approve it. It will need to be FAXED BACK to us at [phone] for Medicare purposes. Please let me know if there are questions or concerns regarding this plan of care. Physician Signature: Date:
--- NOTE | 2020-01-15 10:34 | HP.OT.NRP ---
CÉSAR CASTELLANOS was seen in my office for initial evaluation on 11/07/19. The following Plan of Care was established for this patient: Anticipated Interventions: A/AAROM/PROM, Home Program This patient was last seen in our office 11/07/19. Pertinent comments regarding their Occupational therapy will appear below: pt was seen for OT eval only- as she was to cont with her HEP. At this point I will be discontinuing this patient from occupational therapy. I would be happy to see this patient again in the future if found appropriate by the physician. Thank you! Brandy Paz, OTR/L, CHT
== END 2019-11-07 19:00 | disposition home or self-care (01) ==
LOC: OT 12:59
PROVIDERS: PCP Family Medicine; Referring Provider Internal Medicine Medical Oncology; Visit Provider Internal Medicine Medical Oncology
DX: I82.A12 Acute embolism and thrombosis of left axillary vein (principal); C50.919 Malignant neoplasm of unspecified site of unspecified female breast; C77.3 Secondary and unspecified malignant neoplasm of axilla and upper limb lymph nodes
CPT/HCPCS: 97166

== ENCOUNTER → 2019-12-05 08:58 | Outpatient (CLI) | payer BC, SELFPAY ==
[2019-11-30 08:39] VITALS: BMI 27.6
--- NOTE | 2019-12-05 08:59 | ECHODONC_ITS ---
Reason For Study: HIGH RISK MEDS Procedure This was a 2D Doppler, Color Flow transthoracic echocardiogram. Myocardial strain analysis was performed in this exam to aid in the assessment of cardiac function. Exam performed in department. Left Ventricle Normal LV size. Left ventricular systolic function is normal. The estimated ejection fraction is 60 %. Stage 1 diastolic dysfunction. No regional wall motion abnormalities noted. Right Ventricle Normal RV size. Normal systolic function. Atria Normal left atrium. Normal right atrium. Mitral Valve Normal mitral valve. Tricuspid Valve Normal tricuspid valve. Aortic Valve Normal aortic valve. Trisinus/trileaflet aortic valve. Pulmonic Valve Normal pulmonic valve. Great Vessels Normal aortic root. The pulmonary artery is normal size. Normal inferior vena cava. Pericardium/Pleural No pericardial effusion. MMode/2D Measurements & Calculations LVIDd: 4.0 cm IVSd: 0.98 cm Ao root diam: 3.1 cm LVIDs: 2.6 cm LVPWd: 0.98 cm RVDd: 2.8 cm FS: 33.1 % LAV(MOD-bp): 46.9 ml LA A4 area: 16.5 cm2 LA dimension(2D): 3.0 cm LAV(MOD-bp) Indexed: 28.4 ml/m2 LAV(MOD-sp2): 45.4 ml LAV(MOD-sp4): 48.5 ml RA A4 area: 13.7 cm2 Doppler Measurements & Calculations MV E max chloe: 70.2 cm/sec Ao V2 max: 147.7 cm/sec LV V1 max: 105.6 cm/sec MV A max chloe: 89.6 cm/sec Ao max P.7 mmHg LV V1 max P.5 mmHg MV E/A: 0.78 PA V2 max: 106.3 cm/sec Interpretation Summary Normal LV size. Left ventricular systolic function is normal. The estimated ejection fraction is 60 %. Stage 1 diastolic dysfunction. The global longitudinal strain is normal. The global longitudinal strain = -17.6 % (normal). Ordering Physician: Tremaine Morocho Referring Physician: Yamila Roth Performed By: Sayra Marcum RDCS, RVT
== END ==
PROVIDERS: PCP Family Medicine; Referring Provider Internal Medicine Medical Oncology; Visit Provider Internal Medicine Medical Oncology
DX: C50.919 Malignant neoplasm of unspecified site of unspecified female breast (principal); C77.3 Secondary and unspecified malignant neoplasm of axilla and upper limb lymph nodes; Z79.899 Other long term (current) drug therapy
CPT/HCPCS: 93306; 93356

== ENCOUNTER → 2020-01-11 07:55 | Outpatient (CLI) | payer BC, SELFPAY ==
[2019-11-30 08:39] VITALS: BMI 27.6
--- NOTE | 2020-01-11 07:56 | CT_ITS ---
STUDY: CT CHEST WITH CONTRAST REASON FOR EXAM: Female, 49 years old. BREAST CANCER.CHECKING RESPONSE TO TREATMENT RADIATION DOSAGE (If Supplied By Facility): CTDIvol = ( 10.02 ) mGy, DLP = ( 339.92 ) mGycm TECHNIQUE: Transaxial imaging was performed following intravenous administration of IV 100mL Isovue-370. Multiplanar coronal and sagittal images were reformatted. Individualized dose optimization techniques were used for this CT. COMPARISON: Comparison is made with prior study dated 10/19/2019. FINDINGS: A left-sided Port-A-Cath is seen with the tip in the superior vena cava. Stable benign-appearing bilateral axillary nodes. The lungs are normal. There is no demonstrated pleural abnormality. Normal heart and pericardium. Normal mediastinum. Normal hilar regions. Normal enhanced pulmonary arteries. Normal aorta arch and descending thoracic aorta. Normal osseous structures. There is no demonstrated abnormality of the visualized upper abdomen. CT/Chest WITH Contrast IMPRESSION: Normal enhanced CT Chest examination. Electronically Signed: Guillaume Leroy, at 10:42 EST , Service support ,
[2020-01-11] MEDS: 0.9% Saline Lock 10 ML Syringe IV (08:10)
== END ==
PROVIDERS: PCP Family Medicine; Referring Provider Nurse Practitioner Family; Visit Provider Nurse Practitioner Family
DX: C50.919 Malignant neoplasm of unspecified site of unspecified female breast (principal); C77.1 Secondary and unspecified malignant neoplasm of intrathoracic lymph nodes
CPT/HCPCS: 71260; Q9967; A4216

== ENCOUNTER → 2020-02-14 10:28 | Outpatient (CLI) | payer BC, SELFPAY ==
[2020-02-08 08:35] VITALS: BMI 28.0
--- NOTE | 2020-02-14 10:30 | RAD_ITS ---
STUDY: X-RAY - LEFT HAND, ATTENTION FIRST FINGER REASON FOR EXAM: Female, 49 years old. puncture wound of left thumb(EpiPen), with possible distal tuft fx -- this morning TECHNIQUE: 3 view(s) of the finger were obtained. COMPARISON: None. FINDINGS: Normal metacarpal head. Normal metacarpophalangeal joint. Normal proximal phalanx. Normal distal phalanx. Normal interphalangeal joint. There is no radiopaque foreign body. Mild soft tissue density plantar distal phalanx. RAD/Finger(s) Min 2 Views IMPRESSION: There is no acute displaced fracture or dislocation. There is no radiopaque foreign body. Soft tissue changes likely reactive to reported injury. Electronically Signed: Jazz Gamboa MD at 6:43 EST , Service support ,
== END ==
LOC: MTRAD 10:30
PROVIDERS: PCP Family Medicine; Referring Provider Family Medicine; Visit Provider Family Medicine
DX: S61.032A Puncture wound without foreign body of left thumb without damage to nail, initial encounter (principal)
CPT/HCPCS: 73140

== ENCOUNTER → 2020-03-07 07:53 | Outpatient (CLI) | payer BC, SELFPAY ==
[2020-02-08 08:35] VITALS: BMI 28.0
--- NOTE | 2020-03-07 07:54 | ECHODONC_ITS ---
Reason For Study: monitor of cardiotoxic therapy Procedure This was a 2D Doppler, Color Flow transthoracic echocardiogram. Myocardial strain analysis was performed in this exam to aid in the assessment of cardiac function. Exam performed in department. Left Ventricle Normal LV size. Left ventricular systolic function is normal. The estimated ejection fraction is 57 %. No regional wall motion abnormalities noted. Right Ventricle Normal RV size. Normal systolic function. Atria Normal left atrium. Normal right atrium. Mitral Valve Normal mitral valve. Tricuspid Valve Normal tricuspid valve. Mild tricuspid valve insufficiency. Pulmonary artery systolic pressure is 25 mmHg. Aortic Valve Normal aortic valve. Trisinus/trileaflet aortic valve. Pulmonic Valve Normal pulmonic valve. Great Vessels Normal aortic root. The pulmonary artery is normal size. Normal inferior vena cava. Pericardium/Pleural No pericardial effusion. MMode/2D Measurements & Calculations LVIDd: 4.5 cm IVSd: 0.88 cm Ao root diam: 3.0 cm LVIDs: 3.1 cm LVPWd: 0.95 cm RVDd: 2.6 cm FS: 31.7 % LAV(MOD-bp): 58.5 ml LA A4 area: 20.9 cm2 LA dimension(2D): 3.2 cm LAV(MOD-bp) Indexed: 35.4 ml/m2 LAV(MOD-sp2): 47.5 ml LAV(MOD-sp4): 62.9 ml RA A4 area: 15.8 cm2 Time Measurements MV dec time: 0.21 sec Doppler Measurements & Calculations MV E max brendon: 79.1 cm/sec Lat Peak E' Brendon: 9.9 cm/sec Med Peak E' Brendon: 9.4 cm/sec MV A max brendon: 73.7 cm/sec E/E' lat: 8.0 E/E' med: 8.5 MV E/A: 1.1 Ao V2 max: 131.2 cm/sec LV V1 max: 93.2 cm/sec PA V2 max: 93.5 cm/sec Ao max P.9 mmHg LV V1 max P.5 mmHg TR max brendon: 238.6 cm/sec TR max P.8 mmHg Interpretation Summary Normal LV size. Left ventricular systolic function is normal. The estimated ejection fraction is 57 %. Pulmonary artery systolic pressure is 25 mmHg. The global longitudinal strain is normal. The global longitudinal strain = -17.2 % (normal). Ordering Physician: Miiram Sim Referring Physician: Yamila Roth Performed By: Sayra Marcum RDCS, RVT
== END ==
LOC: CVS 07:53
PROVIDERS: PCP Family Medicine; Referring Provider Nurse Practitioner Family; Visit Provider Nurse Practitioner Family
DX: Z51.81 Encounter for therapeutic drug level monitoring (principal)
CPT/HCPCS: 93306; 93356

== ENCOUNTER → 2020-06-03 08:00 | Outpatient (CLI) | payer BC, SELFPAY ==
[2020-05-23 08:23] VITALS: BMI 26.9
--- NOTE | 2020-06-03 08:01 | ECHOLONC_ITS ---
Reason For Study: High Risk Meds Procedure This was a limited 2D transthoracic echocardiogram. Myocardial strain analysis was performed in this exam to aid in the assessment of cardiac function. The exam was of adequate technical quality. Exam performed in department. Left Ventricle Normal LV size. Left ventricular systolic function is normal. The estimated ejection fraction is 55 %. The global longitudinal strain = -15% (borderline). No evidence for diastolic dysfunction. No regional wall motion abnormalities noted. Right Ventricle Normal RV size. Normal systolic function. Atria Normal left atrium. Normal right atrium. No doppler evidence for ASD. Mitral Valve There is no mitral annular calcification. Normal mitral valve. Mild (1+) mitral valve insufficiency. Tricuspid Valve Normal tricuspid valve. Mild tricuspid valve insufficiency. Right ventricular systolic pressure estimated to be 21 mmHg. Aortic Valve Trisinus/trileaflet aortic valve. Normal aortic valve. Pulmonic Valve The pulmonic valve is not well visualized. Great Vessels The aortic root is not well visualized. Pericardium/Pleural No pericardial effusion. MMode/2D Measurements & Calculations LVIDd: 4.5 cm IVSd: 0.87 cm LVIDs: 3.3 cm LVPWd: 0.84 cm FS: 25.3 % Doppler Measurements & Calculations MV E max brendon: 75.7 cm/sec Lat Peak E' Brendon: 10.4 cm/sec Med Peak E' Brendon: 6.8 cm/sec MV A max brendon: 65.4 cm/sec E/E' lat: 7.3 E/E' med: 11.2 MV E/A: 1.2 TR max brendon: 211.8 cm/sec TR max P.9 mmHg ECHO/ONC Echo, Limited Study Interpretation Summary Left ventricular systolic function is normal. The estimated ejection fraction is 55 %. The global longitudinal strain = -15% (borderline). Mild (1+) mitral valve insufficiency. Mild tricuspid valve insufficiency. Right ventricular systolic pressure estimated to be 21 mmHg. No evidence for diastolic dysfunction. Ordering Physician: Tremaine Morocho Referring Physician: Yamila Roth Performed By: Janeth Russell RDCS, RVT
== END ==
PROVIDERS: PCP Family Medicine; Referring Provider Internal Medicine Medical Oncology; Visit Provider Internal Medicine Medical Oncology
DX: C50.919 Malignant neoplasm of unspecified site of unspecified female breast (principal); C77.3 Secondary and unspecified malignant neoplasm of axilla and upper limb lymph nodes; Z79.899 Other long term (current) drug therapy
CPT/HCPCS: 93308; 93356

== ENCOUNTER → 2020-06-19 07:52 | Outpatient (CLI) | payer BC, SELFPAY ==
[2020-05-23 08:23] VITALS: BMI 26.9
--- NOTE | 2020-06-19 07:53 | CT_ITS ---
STUDY: CT CHEST WITH CONTRAST REASON FOR EXAM: Female, 49 years old. RESTAGING BREAST CANCER RADIATION DOSAGE (If Supplied By Facility): CTDIvol = ( 8.49 ) mGy, DLP = ( 598.79 ) mGycm TECHNIQUE: Transaxial imaging was performed following intravenous administration of IV 100mL Isovue-300. Multiplanar coronal and sagittal images were reformatted. Individualized dose optimization techniques were used for this CT. COMPARISON: Comparison is made with prior study dated 01/11/2020. FINDINGS: A left-sided jenny catheter is seen with the tip in the superior vena cava. Small benign-appearing bilateral axillary lymph nodes. A tissue clip marker is seen in the deep inferior lateral portion of the right breast. Mild skin thickening of the right breast. The lungs are normal. There is no demonstrated pleural abnormality. Normal heart and pericardium. Normal mediastinum. Normal hilar regions. Normal enhanced pulmonary arteries. Normal aorta arch and descending thoracic aorta. Prominent trabeculation along the posterior aspect of the T10 vertebrae. This most likely represents hemangioma. There is no demonstrated abnormality of the visualized upper abdomen. CT/Chest WITH Contrast IMPRESSION: Stable examination. Electronically Signed: Guillaume Leroy MD at 13:37 EDT , Service support ,
--- NOTE | 2020-06-19 07:53 | CT_ITS ---
STUDY: CT SOFT TISSUE NECK WITH CONTRAST REASON FOR EXAM: Female, 49 years old. RESTAGING BREAST CANCER. Right posterior cervical lymph node. RADIATION DOSAGE (If Supplied By Facility): CTDIvol = ( 8.49 ) mGy, DLP = ( 598.79 ) mGycm TECHNIQUE: The patient was scanned in a multi-detector CT scanner. High resolution transaxial imaging was performed following intravenous administration of IV 100mL Isovue-300. Sagittal and coronal images were reconstructed. Individualized dose optimization techniques were used for this CT. COMPARISON: None. FINDINGS: Normal bilateral parotid glands. Normal bilateral busboy spaces. Normal bilateral parapharyngeal spaces. Normal bilateral carotid spaces. Normal bilateral sublingual and submandibular glands and spaces. Normal visualized nasopharynx. Normal retropharyngeal space. Normal perivertebral space. Normal visualized bilateral faucial tonsils. The visualized tongue, tongue base and oropharynx are normal. There are minimally enlarged lymph nodes of the neck, with preservation of normal fco architecture, consistent with a reactive lymph hyperplasia. There is a 1 cm x 1 cm lymph node in the left supraclavicular region. There is no demonstrated solid or cystic mass lesion. There is no abnormal contrast enhancement. Normal epiglottis, bilateral vallecula and hypopharynx. The pre-epiglottic and paraglottic adipose spaces are normal. Normal visualized bilateral piriform sinuses, aryepiglottic folds, vocal cords, and arytenoid-cricoid articulations. Normal subglottic trachea. Normal bilateral lobes of the thyroid gland. Normal visualized pulmonary apices. Normal visualized paranasal sinuses. Normal visualized cervical spine. CT/Soft Tissue Neck WITH Contrast IMPRESSION: 1 cm x 1 cm lymph node in the left supraclavicular region. Electronically Signed: Guillaume Leroy MD at 13:40 EDT , Service support ,
[2020-06-19] MEDS: 0.9% Saline Lock 10 ML Syringe IV (08:20)
== END ==
PROVIDERS: PCP Family Medicine; Referring Provider Internal Medicine Medical Oncology; Visit Provider Internal Medicine Medical Oncology
DX: C50.411 Malignant neoplasm of upper-outer quadrant of right female breast (principal); Z17.1 Estrogen receptor negative status [ER-]; C50.911 Malignant neoplasm of unspecified site of right female breast; C77.3 Secondary and unspecified malignant neoplasm of axilla and upper limb lymph nodes; R21 Rash and other nonspecific skin eruption; L70.8 Other acne
CPT/HCPCS: 70491; 71260; Q9967; A4216

== ENCOUNTER → 2020-09-05 09:51 | Outpatient (CLI) | payer BC, SELFPAY ==
[2020-08-22 08:34] VITALS: BMI 25.4
--- NOTE | 2020-09-05 09:59 | ECHOLONC_ITS ---
Reason For Study: HIGH RISK MEDS Procedure This was a 2D Doppler, Color Flow transthoracic echocardiogram. Myocardial strain analysis was performed in this exam to aid in the assessment of cardiac function. The exam was of adequate technical quality. Exam performed in department. Left Ventricle Normal LV size. Left ventricular systolic function is normal. The estimated ejection fraction is 55 %. The global longitudinal strain = -18 % (normal). Unable to assess diastolic dysfunction. No regional wall motion abnormalities noted. Right Ventricle Normal RV size. Normal systolic function. Atria Normal left atrium. Normal right atrium. No doppler evidence for ASD. Mitral Valve There is no mitral annular calcification. Normal mitral valve. Tricuspid Valve Normal tricuspid valve. Aortic Valve Trisinus/trileaflet aortic valve. Normal aortic valve. Pulmonic Valve The pulmonic valve is not well visualized. Great Vessels Normal sized aortic root. Pericardium/Pleural No pericardial effusion. MMode/2D Measurements & Calculations LVIDd: 4.6 cm IVSd: 0.78 cm Ao root diam: 3.5 cm LVIDs: 3.3 cm LVPWd: 0.94 cm RVDd: 3.1 cm FS: 27.9 % LAV(MOD-bp): 40.7 ml LVAd ap4: 27.7 cm2 LVAd ap2: 22.3 cm2 LAV(MOD-bp) Indexed: 24.5 ml/m2 LVLd ap4: 7.8 cm LVLd ap2: 6.7 cm LAV(MOD-sp2): 42.1 ml EDV(MOD-sp4): 84.9 ml EDV(MOD-sp2): 62.3 ml LAV(MOD-sp4): 34.7 ml EDV(sp4-el): 83.9 ml EDV(sp2-el): 62.9 ml LVAs ap4: 16.6 cm2 LVAs ap2: 12.6 cm2 LVLs ap4: 6.3 cm LVLs ap2: 5.7 cm ESV(MOD-sp4): 37.6 ml ESV(MOD-sp2): 25.1 ml ESV(sp4-el): 37.2 ml ESV(sp2-el): 23.6 ml EF(MOD-sp4): 55.7 % EF(MOD-sp2): 59.7 % EF(sp4-el): 55.7 % SV(MOD-sp4): 47.3 ml SV(MOD-sp2): 37.2 ml SV(sp4-el): 46.7 ml LA dimension(2D): 3.3 cm LA A4 area: 14.3 cm2 RA A4 area: 15.0 cm2 ECHO/ONC Echo, Limited Study Interpretation Summary Left ventricular systolic function is normal. The estimated ejection fraction is 55 %. The global longitudinal strain = -18 % (normal). Unable to assess diastolic dysfunction. Ordering Physician: Tremaine Morocho Referring Physician: Yamila Roth Performed By: Sayra Marcum RDCS, RVT
--- NOTE | 2020-09-05 10:48 | US_ITS ---
STUDY: ULTRASOUND BREAST - RIGHT REASON FOR EXAM: Female, 49 years old. Breast mass TECHNIQUE: Axial and longitudinal images of the RIGHT breast were performed with a high resolution ultrasound transducer. # OF IMAGES: 48 COMPARISON: 08/03/2019 FINDINGS: RIGHT Breast: 2 separate hypoechoic nodules noted in the upper-outer quadrant of the right breast. The larger measures 1.4 x 1.6 x 1.4 cm and shows persistence of the biopsy clip as this was recently evaluated on the previous study of 08/03/2019. It remains irregular in its appearance without posterior shadowing but there is evidence of blood flow. Immediately adjacent to the larger nodule is a smaller 0.5 x 0.9 x 0.5 cm hypoechoic nodule in prevascular nodule. It is difficult to determine if this is part of the other nodule or a new lesion. A short-term follow-up is recommended to assure stability. If on the follow-up study changes, biopsy of this nodule would also be recommended. US/Breast Limited Unilateral IMPRESSION: Stable appearance of the previously biopsied 1.6 cm hypoechoic nodule in the upper-outer quadrant of the right breast. Immediately adjacent to this nodule however is either a new nodule or remnant of the previous nodule. It is also hypoechoic without posterior shadowing but does show internal vascularity. A short-term follow-up is recommended to assure stability. ASSESSMENT CATEGORY: BIRADS Category 3: Probably Benign - Short-Interval Follow-up Suggested. A letter regarding these results will be sent to the patient by the facility within 30 days. Electronically Signed: Alex Hogue MD at 10:10 EDT , Service support ,
== END ==
PROVIDERS: PCP Family Medicine; Referring Provider Internal Medicine Medical Oncology; Visit Provider Internal Medicine Medical Oncology
DX: N63.10 Unspecified lump in the right breast, unspecified quadrant (principal); Z79.899 Other long term (current) drug therapy
CPT/HCPCS: 76642; 93308; 93356

== ENCOUNTER → 2020-09-16 | Outpatient (CLI) | payer BC, SELFPAY ==
[2020-09-12 08:25] VITALS: BMI 25.9
== END | disposition home or self-care (01) ==
LOC: LABSPEC 08:08
PROVIDERS: PCP Family Medicine; Referring Provider Family Medicine; Visit Provider Family Medicine
DX: Z20.822 Contact with and (suspected) exposure to COVID-19 (principal)
CPT/HCPCS: 87635; U0005; U0003

== ENCOUNTER → 2020-11-26 07:59 | Outpatient (CLI) | payer BC, SELFPAY ==
--- NOTE | 2020-11-26 08:01 | ECHOLONC_ITS ---
Reason For Study: CHEMO MEDS Procedure This was a limited 2D transthoracic echocardiogram. Myocardial strain analysis was performed in this exam to aid in the assessment of cardiac function. Exam performed in department. Left Ventricle Normal LV size. Left ventricular systolic function is lower limits of normal. The estimated ejection fraction is 52 %. No regional wall motion abnormalities noted. Right Ventricle Normal RV size. Normal systolic function. Atria Normal left atrium. Normal right atrium. Mitral Valve Normal mitral valve. Tricuspid Valve Normal tricuspid valve. Aortic Valve Trisinus/trileaflet aortic valve. Pulmonic Valve Normal pulmonic valve. Great Vessels Normal aortic root. The pulmonary artery is normal size. Normal inferior vena cava. Pericardium/Pleural No pericardial effusion. MMode/2D Measurements & Calculations LVIDd: 4.4 cm IVSd: 0.74 cm LVAd ap4: 26.6 cm2 LVIDs: 3.1 cm LVPWd: 0.72 cm LVLd ap4: 7.1 cm FS: 30.0 % EDV(MOD-sp4): 82.5 ml EDV(sp4-el): 84.7 ml LVAs ap4: 16.1 cm2 LVLs ap4: 6.0 cm ESV(MOD-sp4): 36.6 ml ESV(sp4-el): 36.6 ml EF(MOD-sp4): 55.7 % EF(sp4-el): 56.8 % SV(MOD-sp4): 45.9 ml SV(sp4-el): 48.1 ml Doppler Measurements & Calculations TR max chloe: 200.0 cm/sec TR max P.0 mmHg ECHO/ONC Echo, Limited Study Interpretation Summary Normal LV size. Left ventricular systolic function is lower limits of normal. The estimated ejection fraction is 52 %. Compared to the previous the above values are marginally lower. The global long itudinal strain = -17 % (normal). Ordering Physician: Tremaine Morocho Referring Physician: JHONY LO Performed By: Judy Lu RDCS
== END ==
PROVIDERS: PCP Family Medicine; Referring Provider Internal Medicine Medical Oncology; Visit Provider Internal Medicine Medical Oncology
DX: C50.911 Malignant neoplasm of unspecified site of right female breast (principal); C77.3 Secondary and unspecified malignant neoplasm of axilla and upper limb lymph nodes; Z79.899 Other long term (current) drug therapy
CPT/HCPCS: 93308; 93356

== ENCOUNTER 2021-01-01 10:00 | Day surgery (SDC) | payer BC, SELFPAY ==
[2021-01-01] VITALS (7 sets, daily range): BP systolic 113–136; BP diastolic 69–82; PULSE 55–72; RESP 16; TEMP 36.1–37.1; O2SAT 96–100; BMI 24.5
--- NOTE | 2021-01-01 | BRBX_PTH ---
PATIENT: CÉSAR CASTELLANOS LOC: [facility] [place] U#:[id number] AGE/SX: 50/F ROOM: RE01/01/[address]: Dr. Leon Cabrera MD : 1970 BED: DIS: 01/01/2021 SPEC #: [id number] RECD: 01/01/21 12:18 STATUS: AZIZA FLORENTINO #: [id number] THOMAS: 01/01/21 00:[address]: Leon Cabrera DEPT: SURGICAL PATHOLOGY RECD BY: Rock Franklin ENTERED: 01/01/21 12:19 SP TYPE: BREAST BX OTHR DR: Dr. Yamila Roth MD Tissues: Right breast, NOS Procedures: Surgery Specimen Level V HEADER OPERATION: Ultrasound guided wire localized breast lumpectomy PRE-OP DIAGNOSIS: Breast cancer metastasized to axillary lymph node TISSUE SUBMITTED: Right breast mass MICROSCOPIC DIAGNOSIS Right breast mass, lumpectomy with needle localization: Invasive ductal carcinoma. Invasive lobular carcinoma. See cancer summary in the comment section. SJ:rg 01/08/2021 COMMENT BREAST CANCER SUMMARY Procedure - excision with needle localization Specimen laterality ? right Invasive tumor: Tumor site ? not specified Tumor size ? 2.5 x 2 x 2 cm & 1 x 0.5 cm (measured microscopically) Histologic type ? invasive ductal carcinoma, larger tumor Invasive lobular carcinoma, smaller tumor Histologic grade (Herald grade): Larger tumor: Glandular/tubular differentiation score - 3 Nuclear pleomorphism score - 3 Mitotic count score - 3 Overall grade ? grade 3 (score of 9) Smaller tumor: Invasive lobular carcinoma Glandular/tubular differentiation score - 3 Nuclear pleomorphism score - 1 Mitotic count score - 1 Overall grade ? 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 Size (extent of DCIS) ? DCIS comprise about 10% of total tumor volume. Number of blocks with DCIS ? 5 Number of blocks examined ? 10 Architectural pattern ? solid and comedo Nuclear grade ? grade 3 (high) Necrosis ? present, central (expansive ?comedo? necrosis) Lobular carcinoma in situ ? not identified Tumor extension: Skin ? skin is not present. Nipple ? not applicable Skeletal muscle ? no skeletal muscle is present. Margins: Invasive ductal carcinoma and ductal carcinoma in situ are <0.1 cm away from the closest margin. Invasive lobular carcinoma is 0.7 cm away from the closest margin. Regional lymph nodes ? no lymph nodes submitted are found. Treatment effect ? no definite response to presurgical therapy in invasive carcinoma and ductal carcinoma in situ. Lymphvascular invasion ? not identified Distant metastasis ? not applicable Ancillary Studies: Previously performed ([id number] / [id number]) ER: negative (0%) OR: negative (0%) Sho1rpp: positive (3+) Ancillary studies on invasive lobular carcinoma ([id number]) ER: positive (72%, moderate intensity) OR: positive (73%, moderate intensity) Sww2ubx: negative (0) Additional pathologic findings: - fibrocystic changes, adenosis and intraductal hyperplasia without atypia. Microcalcifications ? not identified Clinical History - Please make reference to previous specimen ([id number]) right breast tissue, core biopsy with diagnosis of ?invasive ductal carcinoma? and right axillary lymph nodes, needle core biopsy with diagnosis of ?metastatic carcinoma consistent with breast primary.? PATHOLOGIC STAGE: pT2 (y,m) pNx pMx The above summary is in compliance with [employer] (CAP) Cancer Protocols Checklist and [place] [employer] Committee on Cancer (AJCC), Staging Manual, 8th Ed. A block for molecular studies (NGS) on the larger tumor is sent to reference lab. and results will be reported as an addendum. MICROSCOPIC DESCRIPTION Slides are reviewed. GROSS DESCRIPTION Received is one container labeled with the patient name and designated right breast mass. The specimen consists of a piece of a piece of fibroadipose tissue with needle localization measuring 6 x 4.5 x 3 cm. No orientation is provided. The specimen is inked and serially sectioned and reveal a lawson, solid mass measuring 2.5 x 2 x 2 cm. This mass is focally close to the resection margins. Environmental Maintenance Worker sections are submitted in ten cassettes as follows: 1-5 - entire mass with closest margins, 6 & 7 - bank representative sections adjacent to the mass, 8-10 - bank representative sections away from the mass. Sections will be submitted after additional fixation. / MIKA:linda 01/03/2021 TC:0 CPT: 97406 ADDENDUM ADDENDUM ADDENDUM ADDENDUM ADDENDUM ADDENDUM ADDENDUM ADDENDUM ADDENDUM ADDENDUM ADDENDUM ADDENDUM ADDENDUM ADDENDUM ADDENDUM ADDENDUM ADDENDUM ADDENDUM 01/22/2021 09:45 ADDENDUM 01/22/2021 09:45 ADDENDUM 01/22/2021 09:45 ADDENDUM 01/22/2021 09:45 ADDENDUM 01/22/2021 09:45 [facility] ADVANCED SOLID TUMOR NGS REPORT FROM [facility] RESULT SUMMARY: Abnormal IMMUNOTHERAPY BIOMARKERS: Tumor Mutation [place]: Low (3.1 Mutations / MB) Microsatellite Instability: MSI Negative PERTINENT NEGATIVE RESULTS: The following genes are NEGATIVE for clinically relevant mutations. Mutational hotspots and surrounding exonic regions were interrogated for DNA level point mutations and indels (fusions not assayed). AKT1, APC, AMOS, BRAF, BRCA1, BRCA2, CDH1, CDKN2A, CTNNB1, EGFR, EPCAM, ERBB4, FBXW7, FGFR1, FGFR2, FGFR3, GNA11, GNAQ, GNAS, HRAS, IDH1, IDH2, KDR, KIT, KRAS, MEN1, MET, MLH1, MSH2, MSH6, NOTCH1, NRAS, PDGFRA, PIK3CA, PMS2, POLE, PTEN, PTPN11, RB1, RET, SMAD4, SMO, STK11, TERT, TSC1, TSC2, VHL Please see complete report in e-chart or EMR
--- NOTE | 2021-01-01 | IMM_PTH ---
PATIENT: CÉSAR CASTELLANOS LOC: [facility] [place] U#:[id number] AGE/SX: 50/F ROOM: RE01/01/[address]: Dr. Leon Cabrera MD : 1970 BED: DIS: 01/01/2021 SPEC #: [id number] RECD: 01/07/21 13:26 STATUS: AZIZA REQ #: [id number] THOMAS: 01/01/21 00:[address]: Leon Cabrera DEPT: IMMUNOHISTOCHEMISTRY RECD BY: Carisa Shoemaker ENTERED: 01/07/21 13:29 SP TYPE: IMMUNO OTHR DR: Dr. Yamila Roth MD Tissues: Right breast, NOS Procedures: CALPONIN-1 (add) CK5-6 (add) CK8 (add) E-CAD (add) HER2 PETER (add) KI-67 (add) P53 (add) NM (add) P40 (add) ER (initial) PHYSICIAN & [address] [address] SPECIMEN INFORMATION: Tissue Source: Right breast mass Clinical Info: Right breast mass Specimen Number: [id number] #8 CPT code: 40791, 72918 x6, 09770 x3 METHODOLOGY: Deparaffinized sections of prefer/formalin-fixed tissue or PAP/DQ stained slides are incubated with monoclonal/polyclonal antibodies/oligonucleotide probes. Localization is made via biotin free immunoperoxidase method. Appropriate controls are performed and reacted as expected. Results on target cell population are indicated in the following table: RESULTS: ANTIBODY / CLONE RESULT Block 8 E-Cad (ECH-6) negative CK8 (49ivktM91) positive Calponin-1 (OM731Y) negative CK5-6 (D5 & 1684) negative P40 (BC28) negative P53 (DO-7) negative Ki-67 (30-9) positive, low MORPHOMETRIC ANALYSIS ER (clone 6F11) 72%, moderate intensity NM (clone 16/1E2) 73%, moderate intensity Her-2Neu (clone CB11) 0 The prognostic test for HER2 is performed on formalin-fixed paraffin embedded tissue. A 3+ (positive) staining pattern is defined as intense, homogeneous, complete, circumferential membranous staining in >10% of contiguous tumor cells. A similar weak (2+) staining pattern is interpreted as equivocal. ANA follow-up testing is recommended for all equivocal cases. Positivity/negativity for ER/NM is reported if > or < 1% of the tumor cells are immuno- reactive, respectively. The ASCO/CAP criteria is used for scoring. Reference: Journal of Clinical Oncology, 2013; 31:5486-4166 & 2010; 16:1773-5051. Duration of fixation: 32 Hrs; Sample Adequate: Yes. These assays have not been validated on decalcified tissues. Results should be interpreted with caution given the likelihood of false negativity on decalcified specimens. These tests were developed and their performance characteristics determined by [facility]. They may not have been cleared or approved by the U.S. Food and Drug Administration. The FDA has determined that such clearance or approval is not necessary. The above immunohistochemical/dualISH markers are ordered and reviewed by the Pathologist. INTERPRETATION: Right breast mass, ultrasound-guided lumpectomy with needle localization: Invasive lobular carcinoma. Positive for estrogen receptors (favorable prognostic indicator). Positive for progesterone receptors (favorable prognostic indicator). Negative for overexpression of QOC8yte. SJ:linda 01/08/2021
[2021-01-01] MEDS: Lactated Ringers 1,000 ML 15 ML IV (09:00)
[2021-01-01 10:24] LABS: Internal QC Validated? YES +Cl - CLEAR BKGD; Pregnancy, Urine Negative Negative
--- NOTE | 2021-01-01 11:18 | PCM.HP.BLA ---
History and Physical Date of Admission: 01/01/21 Intake Vital Signs 12/09/20 14:27 Height 5 ft 2.5 in Weight: 140 lb BMI 25.2 BP 124/78 H Blood Pressure Location Rt brachial Position Sitting Respiration 18 Intake Visit Reasons: EXCISIONAL BREAST BIOPSY NGS TESTING Chief Complaint: F/u for C21 pertuzumab/trastuzumab Allergies losartan Adverse Reaction (Mild, Verified 12/05/20 09:00) itching Medications multivitamin 1 ea PO DAILY 08/15/19 [History Confirmed 12/09/20] prochlorperazine maleate 10 mg tablet 10 mg PO Q6H PRN PRN tab 08/02/20 [History Confirmed 12/09/20] lidocaine-prilocaine 2.5 %-2.5 % topical cream 1 applic TOPICAL DAILY PRN 30 Days #1 tube 10/03/20 [Rx Confirmed 12/09/20] ondansetron 8 mg disintegrating tablet 8 mg PO Q8H PRN PRN 10 Days #30 tab.rapdis 10/03/20 [Rx Confirmed 12/09/20] losartan 50 mg tablet 50 mg PO DAILY #90 tab 11/29/20 [Rx Confirmed 12/09/20] PFSH Medical History Abnormal mammogram of right breast Abnormal ultrasound of breast Breast mass, right DVT of axillary vein, acute left Encounter for monitoring cardiotoxic drug therapy Ingrown toenail Irregular menstrual bleeding Nipple discharge Pruritus Surgical History History of right breast biopsy (07/2019) Hx of left knee surgery Hx of tonsillectomy Port-A-Cath in place Family History Father Diabetes Hypertension Cancer renal cell cancer/ nephrectomy Myocardial infarction, Onset Age: 76 from [place] Grandfather Parkinsons Grandmother Thyroid disorder Diabetes Breast cancer paternal grandmother Social History Smoking Status: Former smoker second hand exposure: No alcohol intake: never substance use type: does not use caffeine: Yes HPI HPI HPI: CÉSAR CASTELLANOS, is a 50 F who presents to the office today for right breast cancer. 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 The patient underwent several treatments and had a PET scan which showed persistent malignancy in the right breast with no other remaining malignancy in the body. ROS General General: Yes breast cancer; No weight change, appetite, fatigue, colon cancer or weakness HEENT HEENT: No difficulty swallowing, eye injury, eye surgery, swollen glands or hoarseness Endo Endocrine: No thyroid disease, diabetes mellitus, thyroid cancer, Hair loss, heat intolerance or cold intolerance Skin Skin: No rash or changing moles Breast Breast: No left breast lump, right breast lump, nipple discharge, breast pain, abnormal mammogram, abnormal US or breast enlargement Musc Musculoskeletal: No back problems, arthritis, rheumatoid arthritis, gout or joint pain Cardio Cardiovascular: Yes high blood pressure; No murmur, pacemaker, heart disease, atrial fibrillation, heart attack, heart stent, palpitations, shortness of breat with exertion or chest pain Psych Psychiatric: No depression, anxiety or hearing voices Resp Respiratory: No shortness of breath, No sleep apnea, No cough, No COPD, No asthma, No emphysema and No wheezing Gastro Gastrointestinal: No abdominal pain, No nausea or vomiting, No diarrhea, No constipation, No blood in stool, No acid reflux, No hemorrhoids, No ulcers, No gallbladder problem and No black,tarry stools Ivan Hematologic: No blood thinners, No blood disorders, No bleeding, No anemia and No blood clots Neuro Neurologic: No system reviewed and no additional complaints, except as documented, No as per HPI, No abnormal gait, No abnormal hearing, No abnormal movements, No abnormal speech, No behavioral changes, No burning sensations, No confusion, No convulsions, No disequilibrium, No dizziness, No localized weakness, No frequent falls, No headache(s), No lack of coordination, No loss of vision, No memory loss, No numbness, No other visual disturbances, No radicular pain, No restless legs, No sensory deficit, No syncope, No tingling, No tremor(s), No weakness and No other Exam Const General: cooperative Orientation: alert and oriented x3 HENMT Head: normal to inspection Neck Neck: normal visual inspection and full ROM Chest Chest palpation & inspection: normal inspection of the chest Breast Palpation: Yes breast mass lrb: Right Resp Effort & Inspection: normal respiratory effort Auscultation: clear to auscultation bilaterally Cardio Rate: regular rate Rhythm: regular rhythm GI Inspection: non-distended Palpation: soft and nontender Skin General: no rashes or lesions noted Neuro General: patient alert and patient oriented x3 Extrem General: full ROM Psych Appearance: grossly normal Mental Status: mental status grossly normal Assessment and Plan Assessment and Plan (1) Breast cancer 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 PET/CT on 12/03/2020 shows increasing R breast nodule, activity in Uterus may be due menses. Tolerating therapy. Counts and chemistry OK for therapy. Plan - Dr. Leon Cabrera MD: The patient has been sent here for removal of the breast mass to send the tissue for NGS. This was discussed with the patient in detail. I discussed right partial mastectomy with the patient in detail and all her questions were answered. I discussed the risks include but not limited to bleeding, infection, positive margins. The patient has spread to the mediastinal lymph nodes so I do not believe a sentinel lymph node biopsy is necessary. Patient will proceed with partial right mastectomy. Leon Cabrera MD Pager: [facility] [address] [place] [address], [address] [place] [address] Office: I have re-examined the patient. There are no clinical changes since date of exam.
[2021-01-01] MEDS: Cefazolin 2 GM in 0.9% Normal Saline 100 ML IV (11:19)
--- NOTE | 2021-01-01 11:55 | BI_ITS ---
SURGICAL BREAST SPECIMEN RADIOGRAPH CLINICAL: Document presence of tissue clip marker in biopsy specimen. FINDINGS: Specimen shows presence of tissue clip marker. Pathology is pending and an addendum to the biopsy report will be performed after the final pathologic diagnosis is rendered. Electronically Signed: Alex Hogue MD at 14:23 EST , Service support , BI/Breast Biopsy Specimen
--- NOTE | 2021-01-01 12:31 | PCM.OPRPT ---
Problems Associated Problem List Diagnoses (1) Breast cancer, right: Report of Operation Date of Procedure: 01/01/21 Pre-Operative Diagnosis: Right breast cancer and need for further tissue diagnosis Post-Operative Diagnosis: Same Surgery/Procedure Performed:: 1. Right ultrasound-guided wire localization 2. right partial mastectomy Specimen's removed: Right breast cancer Description of Procedure: Patient was taken back to the operating room and general anesthesia was induced. The right chest was prepped and draped in usual sterile fashion. Ultrasound was used to localize the mass and a wire was placed into the mass under ultrasound guidance. Next an incision was marked and incision was made and flaps were created using electrocautery. The wire was brought into the incision and the dissection was carried posteriorly until the mass was surrounded and removed. It was sent for mammography and permanent pathology. The mass will be sent for NGS testing. The cavity was irrigated and suctioned dry and hemostasis was obtained using clips and electrocautery. The cavity was irrigated and suctioned dry once more closed with interrupted 3-0 Vicryl sutures in a running 4-0 Monocryl suture and the skin was anesthetized with local anesthetic. Glue was applied and the patient was awoken and taken to PACU in stable condition. Admit VTE Documentation VTE Mechan Device Prophylaxis: SCD's
--- NOTE | 2021-01-01 12:33 | EX.PCM.DISCH ---
Discharge Instructions Procedure Breast Surgery Diet Discharge Diet: No restrictions Activity Discharge Activity: May Not Drive (for 2-3 days or while taking narcotic pain medications.) May shower in (days): 1 Dressing / Incision Call your doctor if your incision/area has: Increased Pain/ Swelling, Increased Redness, Foul Smelling Discharge and Swelling at the incision site Call your doctor if you observe: Fever of 101 or Higher Suture Line Care: Avoid Pulling/Pushing and Avoid Pinching/Bending Cleanse incision/area with: Soap & Water Follow Up Care Please Follow Up With: Leon Cabrera MD When: Please call to schedule 2 week follow up appointment. [phone] Test Results: Test results from this visit will be discussed in further detail at your follow-up appointment, if applicable. Discharge Plan Admission Attending Provider: Leon Cabrera Primary Care Provider: Yamila Roth Discharge Orders/Prescriptions Prescriptions: New oxycodone-acetaminophen [Percocet] 5-325 mg tablet 1 tab PO Q6H PRN (Reason: pain) 3 Days Qty: 14 RF: 0 No Action ondansetron 8 mg tablet,disintegrating 8 mg PO Q8H PRN PRN (Reason: Nausea) 10 Days Qty: 30 RF: 3 lidocaine-prilocaine 2.5-2.5 % cream 1 applic topical DAILY PRN 30 Days Qty: 1 RF: 2 prochlorperazine maleate 10 mg tablet 10 mg PO Q6H PRN PRN (Reason: Nausea) RF: 0 losartan 50 mg tablet 50 mg PO DAILY Qty: 90 RF: 3 multivitamin 1 EACH tablet 1 ea PO DAILY RF: 0 Referrals / Follow Up: Yamila Roth MD [Primary Care Provider] - Disposition Disposition (needs filled in before D/C Order can be placed): Home, Self Care
== END 2021-01-01 14:11 | disposition home or self-care (01) ==
LOC: SDC 10:01 → AC 10:02
PROVIDERS: Anesthesiology; PCP Family Medicine; Referring Provider Surgery; Visit Provider Surgery
PROC: (CPT 19301; principal; 2021-01-01 11:15)
DX: C50.911 Malignant neoplasm of unspecified site of right female breast (principal); C78.1 Secondary malignant neoplasm of mediastinum; C77.3 Secondary and unspecified malignant neoplasm of axilla and upper limb lymph nodes; Z17.1 Estrogen receptor negative status [ER-]; Z86.718 Personal history of other venous thrombosis and embolism; Z87.891 Personal history of nicotine dependence
CPT/HCPCS: 00400; 19285; 19301; 76098; 81025; 88305; 88307; 88341; 88342; J7120; A4216; J2405

== ENCOUNTER 2021-02-27 13:58 | Outpatient (CLI) | payer BC, SELFPAY ==
--- NOTE | 2021-02-27 13:07 | ECHODONC_ITS ---
Version 2 Reason For Study: HTN, MR Procedure This was a 2D Doppler, Color Flow transthoracic echocardiogram. Myocardial strain analysis was performed in this exam to aid in the assessment of cardiac function. Exam performed in department. Left Ventricle Normal LV size. Left ventricular systolic function is normal. The estimated ejection fraction is 60 %. Stage 1 diastolic dysfunction. No regional wall motion abnormalities noted. Right Ventricle Normal RV size. Normal systolic function. Atria Normal left atrium. Normal right atrium. Mitral Valve Normal mitral valve. Mild (1+) eccentric mitral valve insufficiency. Tricuspid Valve Normal tricuspid valve. Mild tricuspid valve insufficiency. Aortic Valve Trisinus/trileaflet aortic valve. Pulmonic Valve Normal pulmonic valve. Great Vessels Normal aortic root. The pulmonary artery is normal size. Normal inferior vena cava. Pericardium/Pleural No pericardial effusion. MMode/2D Measurements & Calculations LVIDd: 4.2 cm IVSd: 0.85 cm Ao root diam: 3.2 cm LVIDs: 3.1 cm LVPWd: 0.87 cm RVDd: 2.9 cm FS: 25.6 % LAV(MOD-bp): 47.5 ml LVAd ap4: 25.8 cm2 LVAd ap2: 26.4 cm2 LAV(MOD-bp) Indexed: 29.0 ml/m2 LVLd ap4: 7.5 cm LVLd ap2: 8.2 cm LAV(MOD-sp2): 38.5 ml EDV(MOD-sp4): 74.9 ml EDV(MOD-sp2): 75.2 ml LAV(MOD-sp4): 54.3 ml EDV(sp4-el): 75.9 ml EDV(sp2-el): 72.5 ml LVAs ap4: 15.5 cm2 LVAs ap2: 15.8 cm2 LVLs ap4: 6.3 cm LVLs ap2: 6.8 cm ESV(MOD-sp4): 33.6 ml ESV(MOD-sp2): 32.5 ml ESV(sp4-el): 32.3 ml ESV(sp2-el): 31.2 ml EF(MOD-sp4): 55.1 % EF(MOD-sp2): 56.8 % EF(sp4-el): 57.4 % SV(MOD-sp4): 41.2 ml SV(MOD-sp2): 42.7 ml SV(sp4-el): 43.6 ml LA dimension(2D): 2.7 cm LA A4 area: 18.3 cm2 RA A4 area: 11.5 cm2 Doppler Measurements & Calculations MV E max brendon: 62.7 cm/sec Lat Peak E' Brendon: 8.4 cm/sec Med Peak E' Brendon: 5.5 cm/sec MV A max brendon: 84.2 cm/sec E/E' lat: 7.5 E/E' med: 11.4 MV E/A: 0.74 Ao V2 max: 152.4 cm/sec LV V1 max: 112.9 cm/sec PA V2 max: 96.1 cm/sec Ao max P.3 mmHg LV V1 max P.1 mmHg TR max brendon: 196.0 cm/sec TR max P.4 mmHg ECHO/ONC Echo Complete Interpretation Summary Normal LV size. Left ventricular systolic function is normal. The estimated ejection fraction is 60 %. Mild (1+) eccentric mitral valve insufficiency. Stage 1 diastolic dysfunction. The global longitudinal strain = -16.9% (abnormal). The global longitudinal str ain is mildly abnormal. Ordering Physician: Aroldo Mcconnell Referring Physician: Yamila Roth M.D. Performed By: Alondra Melendez RDCS
== END 2021-02-27 23:59 | disposition short-term general hospital (02) ==
PROVIDERS: PCP Family Medicine; Referring Provider Internal Medicine Cardiovascular Disease; Visit Provider Internal Medicine Cardiovascular Disease
DX: I34.0 Nonrheumatic mitral (valve) insufficiency (principal); I10 Essential (primary) hypertension
CPT/HCPCS: 93306; 93356

== ENCOUNTER 2021-04-03 12:29 | Outpatient (CLI) | payer BC, SELFPAY ==
--- NOTE | 2021-04-03 12:33 | BD_ITS ---
STUDY: DUAL ENERGY X-RAY ABSORPTIOMETRY / DXA REASON FOR EXAM: Female, 50 years old. SCREENING TECHNIQUE: Bone Mineral Density (BMD) measurements of lumbar spine and bilateral hips were obtained. COMPARISON: None. FINDINGS: Lumbar Spine (L1-L4): g/cm2 (0.918) / T-score (-1.2) / Z-score (-0.4) Findings are suggestive of osteopenia with a low fracture risk. Left Femur Total: g/cm2 (0.887) / T-score (-0.5) / Z-score (0.0) Left Femoral Neck: g/cm2 (0.680) / T-score (-1.5) / Z-score (-0.8) Right Femur Total: g/cm2 (0.899) / T-score (-0.4) / Z-score (0.1) Right Femoral Neck: g/cm2 (0.689) / T-score (-1.4) / Z-score (-0.7) BD/Dexa Bone Density Study IMPRESSION: The patient is considered osteopenic as outlined below according to World Anil Organization (WHO) criteria with a moderate fracture risk. Reference Information: The T-score is the number of standard deviations above or below the standard which is normal for young adults at their peak bone mineral density. The World Health Organization (WHO) interprets the T-scores as follows: Above -1 Normal bone density Between -1 and -2.5 Osteopenia Equal to / or below -2.5 Osteoporosis As a practical clinical guideline, osteopenia may be graded as follows: Mild -1 through -1.5 Moderate -1.6 through -2.0 Severe -2.1 through -2.4 The Z-score is the number of standard deviations above or below age-matched controls. A Z-score of less than -1.5 would be considered abnormal. References: 1. NIH Osteoporosis and Related Bone Diseases www osteo.org 2. International Society for Clinical Densitometry www iscd.org 3. National Osteoporosis Foundation www nof.org Electronically Signed: Guillaume Leroy MD at 8:22 EST ,
== END 2021-04-03 23:59 | disposition home or self-care (01) ==
LOC: OPBD 12:29
PROVIDERS: PCP Family Medicine; Visit Provider Internal Medicine Medical Oncology
DX: E87.6 Hypokalemia (principal); C77.3 Secondary and unspecified malignant neoplasm of axilla and upper limb lymph nodes; C50.911 Malignant neoplasm of unspecified site of right female breast; Z13.820 Encounter for screening for osteoporosis
CPT/HCPCS: 77080

== ENCOUNTER 2021-05-19 05:34 | Day surgery (SDC) | payer BC, SELFPAY ==
[2021-05-14 10:32] LABS: Magnesium 2.4 mg/dL (1.6-2.6)
--- NOTE | 2021-05-15 16:02 | EKG12_ITS ---
Test Reason : PREOP Blood Pressure : / mmHG Vent. Rate : 068 BPM Atrial Rate : 068 BPM P-R Int : 134 ms QRS Dur : 068 ms QT Int : 378 ms P-R-T Axes : 060 065 048 degrees QTc Int : 401 ms Normal sinus rhythm Normal ECG Confirmed by STACI HU, ARELI ([id number]), editor farm journal KAREEM OCAMPO ([id number]) on 05/22/2021 12:42:03 PM Referred By: Kishore Laguna Confirmed By:ARELI SMALL MD
[2021-05-15 17:10] LABS: ALB/GLOB Ratio 1.1 RATIO (0.9-2.4); AST(SGOT) 15 U/L (15-37); Alanine Aminotransfer ALT/SGPT 21 U/L (13-56); Alkaline Phosphatase 94 U/L (45-117); Anion Gap 3 (5-15); BUN 8 mg/dL (7-18); Calcium,Total 9.6 mg/dL (8.5-10.1); Chloride 104 mmol/L (98-107); Creatinine, Serum 0.66 mg/dL (0.55-1.02); EST Glomerular Filtration Rate 100 mL/min (>60); Est Glom Filt Rate - Afr Amer 121 mL/min (>60); Globulin 3.6 g/dL (2.2-4.2); Glucose 96 mg/dL (74-106); Potassium 3.9 mmol/L (3.5-5.1); Protein, Total 7.6 g/dL (6.4-8.2); Sodium Level 137 mmol/L (136-145)
[2021-05-15 17:13] LABS: Hematocrit 36.4 % (37-47); Mean Corpuscular Hgb 29.1 pg (27.0-32.0); Mean Corpuscular Volume 88.3 fL (81-99); Mean Platelet Vol. 11.3 fl (6.2-12.0); Platelet Count 224 K/mm3 (150-450); RBC Distribution Width CV 14.4 % (11.6-14.6); RBC Distribution Width SD 47.1 fl (35.1-43.9); Red Blood Count 4.12 M/mm3 (4.2-5.4); White Blood Count 4.8 K/mm3 (4.4-11.0)
[2021-05-15 17:17] LABS: Prothrombin Time (Protime)PT. 12.2 SECONDS (11.7-14.9)
--- NOTE | 2021-05-17 16:02 | PCM.HP.BLA ---
History and Physical Date of Admission: 05/19/21 Surgical History and Physical Marya Quezada, a 50 year old female 2 0 1 0 2, presents for RAVH/BSO on May 19 2021. -- Estrogen Receptor Positive Breast Cancer -- Dx of Breast cancer in July 2019, Right lumpectomy completed 01/01/21. Has had chemo and infusions in past, Port placed. States that Dr. Morocho has recommended that she gets ovaries removed based off Dx of breast ca. Has had issues of heavy menses for years and considered HTA before breast CA dx; may be on Tamoxifen mcfp in future. MEDICATIONS HISTORY: Patient is also takin. losartan 50 mg tablet, One pill by mouth once a day ALLERGIES: NKA Infections - Chicken pox Illnesses - no serious past illnesses Accidents - no injuries of consequence Hospitalizations - Childbirth and see surgery Breast Ca. July 2019; Review of Systems: GENERAL - Denies fever, or chills SKIN - Denies skin changes EYES - Denies visual changes EARS - Denies difficulty hearing NOSE - Denies nasal congestion or bleeding MOUTH - Denies sore throat or difficulty swallowing NECK - Denies pain or swelling RESPIRATORY - Denies shortness of breath or wheezing CARDIOVASCULAR - Denies palpitations or chest pain GASTROINTESTINAL - Denies nausea, vomiting, diarrhea, constipation GENITOURINARY - Denies dysuria, frequency of urination, incontinence of urine MUSCULOSKELETAL - Denies joint or muscle pain NEUROLOGICAL - Denies localized numbness or weakness PSYCHIATRIC - denies depression or anxiety symptoms ENDOCRINE - Denies heat or cold intolerance, weight loss or gain HEMATO-IMMUNOLOGIC - Denies excesive bleeding with cuts SOCIAL HISTORY: Alcohol Use - RARELY Smoking - used to smoke but quit Diet - balanced Diet Lifestyle - low stress lifestyle and Exercise - active work Seat Belt Use - always Employer - [employer] Job Description - [employer] Illicit Drug Use - denies use of street drugs Sexual Activity - and ACTIVE [employer] Residence - lives with Place of - [place], [place] Spouse-Sig Other Name - MARITZA Spouse-Sig Other Occupation - [employer] Children Name(s) - Meggan FIGUEREDO Control - Vasectomy FAMILY HISTORY: Paternal Grandmother: Breast cancer and DM II. Paternal Grandfather: DM II. MENSTRUAL HISTORY: LMP Known?- DefiniteAmount/Duration - 7 days, Regularity - Regular, Frequency - 28 days, LMP - 05/15/21, Age Onset Menarche - 13 PAST PREGNANCIES: Total Pregnancies - 3; Full Term Pregnancies - 2; Premature - 0; Abortions, Induced - 1; Abortions, Spontaneous - 0; Ectopics - 0; Multiple Births - 0; Living Children - 2 SURGICAL HISTORY: 1. 1988 tonsillectomy 2. 1990 left knee arthroscopic surgery 3. 1991 laparoscopy ; - endometriosis 4. Port Placement-August 2019 5. 09/04/2019 Port placement 6. 01/01/2021 Right Lumpectomy PHYSICAL EXAM BP- 122/76 Sitting, Right arm, regular cuff Weight- 143.0 lbs Height- 62.50 inch BMI:25.7 CONSTITUTIONAL - NAD, well nourished, and well developed SKIN - No rash, lesions, or ulcers HEENT - Normocephalic, PERRLA, EOMI NECK - No nodes, no nuchal rigidity and thyroid normal size and texture LYMPH NODES - Palpation of lymph nodes in neck and groins within normal limits LUNGS - CTA x2 without wheezes, crackles or rales CARDIAC - Regular rate and rhythm without rubs, murmurs, or gallops ABDOMEN - Without hepatosplenomegaly, distention, masses, rebound, or guarding; normal bowel sounds; no hernias EXTREMITIES - No edema or calf tenderness NEUROLOGICAL - Cranial nerves II-XII grossly intact PSYCHIATRIC - A and O to time, place, person, mood and affect External Genitial Vagina - non-tender without lesions Urethra/Urethral Meatus - non-tender Bladder - non-tender Vagina - vaginal choe are pink and moist without loss of rugae and no evidence of atropy Cervix - without cervical motion tenderness and has normal size and features without evident lesions Uterus - 5-6 cm in size, mobile and nontender Adnexa - clear without massess or tenderness ASSESSMENT/PLAN: 1. Estrogen Receptor Positive Status [er+], Malignant Neoplasm Of Breast Of Unspecified Site and Premenopause Menorrhagia Oncologist recommends bilateral oophorectomy for ER+BRCa. Discussed options and pt desires we proceed with RAVH/BSO. Discussed RBAs and all questions answered.
[2021-05-19] VITALS (14 sets, daily range): BP systolic 85–130; BP diastolic 31–100; PULSE 58–92; RESP 12–16; TEMP 36.1–37; O2SAT 95–100; BMI 26.2
[2021-05-19 06:06] LABS: Bedside Glucose 113 mg/dL (74-106)
[2021-05-19] MEDS: Gabapentin 600 MG Tablet PO (06:07)
[2021-05-19] MEDS: Acetaminophen 500 MG Tablet 1000 MG PO (06:07)
[2021-05-19] MEDS: Lactated Ringers 1,000 ML 40 ML IV ×2 (06:12→13:43)
--- NOTE | 2021-05-19 07:28 | PCM.OPRPT ---
Report of Operation Date of Procedure: 05/19/21 Pre-Operative Diagnosis: Estrogen Receptor Positive Breast Cancer Post-Operative Diagnosis: Estrogen Receptor Positive Breast Cancer Surgery/Procedure Performed:: Robotic Assisted Vaginal Hysterectomy and Bilateral Salpingo-Oophorectomy Description of Surgical Findings:: 8 cm uterus with normal-appearing fallopian tubes and ovaries. Surgeon: Kishore Laguna heel brusher: Shahida Clark Type of Anesthesia: General (Endotracheal) Anesthesiologist: Jose Eduardo Villaseñor Specimen's removed: Uterus and bilateral fallopian tubes and ovaries. Drains: Galvan to straight drain (removed after surgery) Estimated Blood Loss (mL): Minimal Fluids Replaced: Crystalloid Description of Procedure: Surgeon: Kishore Laguna MD, FACOG Indication: This is a 50 year old patient who has estrogen receptor positive breast cancer. Oncology recommends ovary removal. The patient has been counseled regarding the risks, benefits and alternatives of this procedure including the possibility of bleeding, infection, and injury to surrounding structures such as bowel bladder and all questions were answered. Procedure: Pt taken to the operating room where, after induction of general anesthesia, the patient was prepped and draped in the usual sterile fashion and placed on a non-slip Huggy-u-vac device. Trendelenburg test was satisfactory. Bladder was drained of urine with a Galvan catheter which was left in place. Anterior cervix grasped and cervix was dilated to about 3-4 mm. Uterus sounded to 9 cms. 0-Vicryl suture was placed at the 3:00 and 9:00 position of the cervix. A medium Advincula Director Presales Uterine Manipulator was then placed in the uterus and attention was turned to the laparoscopic portion of the procedure. Ropivocaine 0.5% was injected approximately 2-3 cm superior to the umbilicus and an 8 mm robotic camera port was introduced directly with intraperitoneal placement confirmed with CO2 insufflation. 8 mm robotic side ports were introduced under direct visualization approximately 10 cm lateral and 2 cm inferior to the umbilical port. A 5 mm left upper quadrant port was introduced and airseal insufflation with CO2 was started. The above findings were noted. Robot was docked without difficulty and attention turned to the robotic portion of the procedure. Approximately 30 cc of Ropivicaine was used. Bilateral infundibulopelvic ligaments were ligated with 35 marie bipolar coagulation to the level of the round ligament. The posterior aspect of the cervix was identified and then opened for about 1 cm using 25 watt monopolar cautery identifying the uterine manipulating device which had been placed vaginally. Bladder flap was opened and divided to the level of the round ligaments using monopolar cautery. Progressive bites were then ligated on each side of the cervix with 35 marie bipolar cautery to the uterine arteries. The anterior vaginal mucosa was entered and cervix circumscribed with monopolar cautery. Uterus and attached tubes and ovaries were removed through the vagina. Vaginal cuff was closed first with 0-Vicryl Laurence stitches placed at each angle followed by closure of the mid-cuff with 0-Monocryl V-lock suture in two layers. Pelvis was copiously irrigated with saline and the right and left ureter were noted to peristalse. Enrique was placed across the vaginal cuff to help with postoperative hemostasis due to some oozing noted. Robot was undocked and trocars were removed with as much gas as possible. Incisions were closed with 4-0 Monocryl subcuticular sutures and incisions covered with steri-strips. The patient tolerated the procedure well and was taken to the recovery room in satisfactory condition. Sponge, instruments and needle counts were all correct. There were no apparent complications of the surgery. Ancef 2 gms IV was given prior to the procedure. Estimated Blood Loss: Minimal Specimen to Pathology: Uterus and bilateral tubes and ovaries Grafts/Implants Used: None Complications None Admit VTE Documentation VTE Present on Admission: Yes VTE Mechan Device Prophylaxis: SCD's
--- NOTE | 2021-05-19 07:30 | HYST_PTH ---
PATIENT: CÉSAR CASTELLANOS LOC: [facility] [place] U#:[id number] AGE/SX: 50/F ROOM: RE05/19/[address]: Dr. Kishore Laguna MD : 1970 BED: DIS: 05/19/2021 SPEC #: [id number] RECD: 05/19/21 14:32 STATUS: AZIZA FLORENTINO #: [id number] THOMAS: 05/19/21 07:[address]: Kishore Laguna DEPT: SURGICAL PATHOLOGY RECD BY: Tyesha Lakhani ENTERED: 05/20/21 09:52 SP TYPE: HYSTERECT OTHR DR: Dr. Yamila Roth MD Tissues: Uterus, NOS Procedures: Surgery Specimen Level V HEADER OPERATION: Lap robotic hysterectomy, BSO PRE-OP DIAGNOSIS: ER positive breast CA TISSUE SUBMITTED: Uterus, cervix, bilateral fallopian tubes and ovaries MICROSCOPIC DIAGNOSIS Uterus, cervix, bilateral fallopian tubes and ovaries, hysterectomy and bilateral salpingo-oophorectomy: Cervix ? chronic cystic cervicitis. Endometrium ? secretory endometrium. Endometrial polyp ? benign endometrial polyp with secretory changes (3 cm in greatest dimension). Myometrium ? adenomyosis. Bilateral fallopian tubes - no pathologic diagnosis. Right ovary ? one benign epithelial cyst. Left ovary - no pathologic diagnosis. Paratubal cyst. SJ:rg 05/21/2021 COMMENT Case has been reviewed in consultation with Dr. Cedeño who concurs with the above diagnosis. IDC:AM MICROSCOPIC DESCRIPTION Slides are reviewed. GROSS DESCRIPTION Received in fixative is one container labeled with the patient's name and designated uterus. The specimen consists of a uterus with attached right and left fallopian tubes and ovaries. The uterus with cervix measures 7.5 x 5.5 x 4.6 cm and weighs 76.5 gm. The ectocervix is unremarkable. The cervical os is oval in contour. The endocervical canal measures 3.6 cm in length and is grossly unremarkable. The triangular endometrial cavity measures 4 x 2.5 cm. The fundus of the endometrium contains a fleshy, reddish-lawson polyp measuring 3 x 1.5 x 1 cm. The myometrium immediately beneath the polyp is not indurated. The myometrium measures 1.5 cm in thickness. The right ovary measures 3 x 2 x 1 cm. Serial sections reveal a cyst containing clear fluid. The cyst measures 1.2 cm in greatest dimension. The right fallopian tube measures 7 cm in length and 0.8 cm in average diameter and has a fimbriated end. Adjacent to the fimbriated end is a fluid-filled cyst measuring 1.2 cm and containing clear fluid. No tubo-ovarian adhesions are identified. The left ovary is similar in appearance to the right ovary and measures 3 x 2.2 x 1 cm. Serial sections of the left ovary do not reveal mass lesions. The adjacent left fallopian tube is similar in appearance to the right fallopian tube and it measures 5.5 cm in length and 0.6 cm in average diameter. The soft tissue adjacent to the fimbrial end contains a smooth, glistening cyst containing clear fluid. The cyst measures 0.6 cm in greatest dimension. [employer]er sections are submitted in ten cassettes as follows: 1 - anterior cervix, 2 - posterior cervix, 3 - anterior uterine wall, 4??posterior uterine wall, 5-7 - endometrial polyp, 8 - right fallopian tube, ovary and paratubal cyst, 9 - left fallopian tube, ovary and paratubal cyst. / GISSELLE:linda 05/20/2021 TC:5 CPT: 93457
[2021-05-19] MEDS: Cefazolin 2 GM in 0.9% Normal Saline 100 ML IV (07:35)
[2021-05-19] MEDS: Ropivacaine 0.5% 30 ML Vial (08:15)
--- NOTE | 2021-05-19 09:35 | PCM.DC ---
Discharge Instructions Diet Discharge Diet: No restrictions Activity Discharge Activity: May Shower and May Take a Tub Bath May resume sexual activity in: 6 weeks (nothing in the vagina.) Lifting Restrictions: 25 pounds for 6 weeks. Additional Activity Instructions:: Nothing in the vagina for 6 weeks please; no lifting more than 20-25 lbs for 6 weeks. Use Ibuprophen 800 mg orally every 8 hours as needed for pain. Can also add Tylenol 1000 mg every 8 hours if needed for pain. If Ibuprophen and Tylenol are not effective then use the Oxycodone but keep in mind it can cause serious constipation issues. Drink lots of water. Call if bleeding more than a pad per hour. Use the colace as constipation is a big issue after this type of surgery. Steps and walking are OK. Activity is encouraged but do not over do it !! Dressing / Incision Call your doctor if your incision/area has: Continuous Slow Oozing, Sudden Increased Bleeding, Increased Pain/ Swelling, Increased Redness and Foul Smelling Discharge Call your doctor if you observe: Fever of 101 or Higher, Inability to urinate, Inability to have a bowel movement, Using more than 1 pad per hour and - (Some vaginal bleeding may be noted for up to 4-8 weeks.) Cleanse incision/area with: - (Let the soapy water run over your incision, rinse and pat dry.) Additional Dressing/Incision Instructions:: The white strips (Steri Strips) on your incisions will fall off on their own. If they fall off and it bothers you it is okay to put Band-Aids across the incisions. Follow Up Care Please Follow Up With: Kishore Laguna MD When: Call [phone] for an appointment to be seen in 2 weeks. Test Results: Test results from this visit will be discussed in further detail at your follow-up appointment, if applicable. Discharge Plan Admission Primary Reason for Your Visit: Robotic Assisted Vaginal Hysterectomy and Removal of Both Ovaries Attending Provider: Kishore Laguna Primary Care Provider: Yamila Roth Discharge Orders/Prescriptions Prescriptions: New docusate sodium 100 mg tablet 100 mg PO BID PRN (Reason: constipation) Qty: 60 RF: 1 oxycodone 5 mg capsule 5 mg PO Q6H PRN (Reason: pain (scale score 7-10)) 7 Days Qty: 10 RF: 0 Continued lidocaine-prilocaine 2.5-2.5 % cream 1 applic topical DAILY PRN 30 Days Qty: 1 RF: 2 losartan 50 mg tablet 50 mg PO DAILY Qty: 90 RF: 3 multivitamin 1 EACH tablet 1 ea PO DAILY RF: 0 calcium carbonate [Tums] 300 mg (750 mg) Tablet,Chewable 300 mg PO BID RF: 0 Other Ambulatory Orders: 12 Lead EKG (Routine) Location: None Selected Ordered By: Dr. Salo Laguna Referrals / Follow Up: Yamila Roth MD [Primary Care Provider] - Disposition Disposition (needs filled in before D/C Order can be placed): Home, Self Care
--- NOTE | 2021-05-19 16:13 | SUR.PHASEII ---
Port flushed with 0.9% saline flush and then heparin flush
== END 2021-05-19 23:59 | disposition home or self-care (01) ==
LOC: SDC 05:35 → AC 05:35
PROVIDERS: Anesthesiology; PCP Family Medicine; Referring Provider Obstetrics & Gynecology; Visit Provider Obstetrics & Gynecology
PROC: 0UT94ZZ Resection of Uterus, Percutaneous Endoscopic Approach (ICD-10-PCS; CPT 58571; principal; 2021-05-19 07:10)
DX: N80.0 Endometriosis of uterus (principal); C50.911 Malignant neoplasm of unspecified site of right female breast; N84.0 Polyp of corpus uteri; N83.201 Unspecified ovarian cyst, right side; N92.4 Excessive bleeding in the premenopausal period; Z17.0 Estrogen receptor positive status [ER+]; Z92.21 Personal history of antineoplastic chemotherapy; Z87.891 Personal history of nicotine dependence
CPT/HCPCS: 58571; S2900; 00840; 36415; 80053; 82962; 83735; 85027; 85610; 85730; 86850; 86900; 86901; 87426; 88307; 93005; J7120; A4216; J2405; J3475

== ENCOUNTER → 2021-06-05 | Outpatient (CLI) | payer BC, SELFPAY ==
--- NOTE | 2021-06-05 06:49 | CT_ITS ---
STUDY: CT ABDOMEN AND PELVIS WITH CONTRAST REASON FOR EXAM: Female, 50 years old. Upper abdominal pain. Recent hysterectomy. History of right breast cancer with lumpectomy and chemotherapy and radiation therapy. RADIATION DOSAGE (If Supplied By Facility): CTDIvol = ( 8.55 ) mGy, DLP = ( 515.16 ) mGycm TECHNIQUE: Transaxial images were obtained from the dome of the diaphragm to the symphysis pubis without oral contrast. 100ML ISOVUE 300 was administered. Sagittal and coronal images were reconstructed. Individualized dose optimization techniques were used for this CT. COMPARISON: Comparison is made with prior study dated 08/21/2019. FINDINGS: There is evidence of skin thickening overlying the right breast. Most likely postsurgical in nature. Mild degree of increased markings in the anterior aspect of the right middle lobe just deep to the chest wall. With the patient''s history of a prior radiation to the breast, this may represent post radiation scarring or pneumonitis. The visualized portions of the heart are within normal limits. Stable 3 mm cyst in the anterior aspect of the right lobe of the liver. Normal gallbladder and extrahepatic biliary system. Normal spleen. Normal pancreas. Normal bilateral adrenal glands. Normal right kidney. Normal left kidney. Normal visualized stomach. Normal small intestine. Moderate amount of fecal material is seen in the colon. There is non-visualization of the appendix. Normal abdominal aorta. Normal inferior vena cava. Normal retroperitoneum. Normal urinary bladder. There is absence of the uterus consistent with a prior hysterectomy. Normal abdominal wall. There are mild degenerative changes of the visualized lumbar spine. CT/Abdomen/Pelvis W IV Cont ONLY IMPRESSION: Mild increased markings in the anterior aspect of the right upper lobe most likely secondary to prior radiation of the right breast. Right breast skin thickening. Moderate amount of fecal material is seen in the colon. Status post hysterectomy. Electronically Signed: Guillaume Leroy MD at 8:57 EDT ,
[2021-06-05] MEDS: 0.9% Saline Lock 10 ML Syringe IV (07:10)
== END | disposition home or self-care (01) ==
LOC: CT 06:49
PROVIDERS: PCP Family Medicine; Referring Provider Internal Medicine Medical Oncology; Visit Provider Internal Medicine Medical Oncology
DX: R10.13 Epigastric pain (principal); C77.3 Secondary and unspecified malignant neoplasm of axilla and upper limb lymph nodes; C50.911 Malignant neoplasm of unspecified site of right female breast
CPT/HCPCS: 74177; Q9967; A4216

== ENCOUNTER → 2021-09-03 | Outpatient (CLI) | payer BC, SELFPAY ==
[2021-09-03] MEDS: 0.9% Saline Lock 10 ML Syringe IV (12:55)
--- NOTE | 2021-09-03 13:04 | CT_ITS ---
STUDY: CT CHEST, ABDOMEN T PELVIS WITH CONTRAST REASON FOR EXAM: Female, 50 years old. Follow up treated, unresected breast cancer RADIATION DOSAGE (If Supplied By Facility): CTDIvol = ( 10.31 ) mGy, DLP = ( 863.52 ) mGycm TECHNIQUE: Transaxial imaging was performed following intravenous administration of Oral and amp; IV Readi-CAT and amp; 100mL Isovue-300. Multiplanar coronal and sagittal images were reformatted. Individualized dose optimization techniques were used for this CT. COMPARISON: Comparison is made with prior examination dated 06/19/2020 and 06/05/2021. FINDINGS: CHEST A left-sided jenny catheter seen with the tip in the superior vena cava. Skin thickening of the right breast. More breast tissue is seen in the right breast as compared to the left side. The lungs are normal. There is no demonstrated pleural abnormality. Normal heart and pericardium. Normal mediastinum. Normal hilar regions. Normal unenhanced pulmonary arteries. Normal aorta arch and descending thoracic aorta. Normal osseous structures. Diffuse fatty infiltration of the liver. ABDOMEN 2 Normal gallbladder and extrahepatic biliary system. Normal spleen. Normal pancreas. Normal bilateral adrenal glands. Normal right kidney. Normal left kidney. Normal visualized stomach. Normal small intestine. Normal colon. The appendix is visualized and appears normal. Normal abdominal aorta. Normal inferior vena cava. Normal retroperitoneum. Normal abdominal wall. There are mild degenerative changes of the visualized lumbar spine. PELVIS Normal urinary bladder. Prior hysterectomy. Normal visualized small intestine. Normal visualized colon. There is no pelvic fluid. There is no pelvic lymphadenopathy or mass lesion. Normal visualized pelvic arteries. CT/CT Chest, Abd, Pel w/Contrast IMPRESSION: Stable examination. Electronically Signed: Guillaume Leroy MD at 15:43 EDT ,
== END | disposition home or self-care (01) ==
LOC: CT 12:50
PROVIDERS: PCP Family Medicine; Referring Provider Student in an Organized Health Care Education/Training Program; Visit Provider Student in an Organized Health Care Education/Training Program
DX: C50.911 Malignant neoplasm of unspecified site of right female breast (principal); C77.3 Secondary and unspecified malignant neoplasm of axilla and upper limb lymph nodes
CPT/HCPCS: 71260; 74177; Q9967; A4216

== ENCOUNTER → 2021-10-31 | Outpatient (CLI) | payer BC, SELFPAY ==
--- NOTE | 2021-10-31 11:51 | BI_ITS ---
MAMMOGRAPHY - BILATERAL SCREENING 3-D TOMOSYNTHESIS REASON FOR EXAM: Female, 51 years old. treated breast cancer, continue screening PERTINENT HISTORY: No significant family history. TECHNIQUE: 2-D mammograms and 3-D Tomosynthesis of the breast (s) were performed. CAD was performed. COMPARISON: 07/27/2019 FINDINGS: The breast composition is heterogeneously dense that can obscure small breast masses. Scattered benign calcifications are seen. No dense spiculated masses or suspicious microcalcifications are identified. No architectural distortion is identified. There is no skin thickening or retraction. There has been no significant change since the prior study. Lumpectomy changes in the upper outer quadrant right breast. BI/SCRN MAMM (CAD)W/BRIANNA BILAT IMPRESSION: No mammographic signs of malignancy. Routine yearly mammograms recommended. ASSESSMENT CATEGORY: BIRADS Category 1: Negative. A letter regarding these results will be sent to the patient by the facility within 30 days. FOLLOW UP RECOMMENDATION: Yearly follow up mammogram recommended. (A) Approximately 10% of breast cancers are not detected by mammography. A normal mammogram should not delay biopsy of a clinically suspicious abnormality. Electronically Signed: Herber Molina MD at 8:58 EDT ,
== END | disposition home or self-care (01) ==
LOC: OPBI 11:50
PROVIDERS: PCP Family Medicine; Visit Provider Student in an Organized Health Care Education/Training Program
DX: Z12.31 Encounter for screening mammogram for malignant neoplasm of breast (principal); C50.411 Malignant neoplasm of upper-outer quadrant of right female breast; Z17.1 Estrogen receptor negative status [ER-]
CPT/HCPCS: 77063; 77067; 96523

== ENCOUNTER → 2022-03-16 | Outpatient (CLI) | payer BC, SELFPAY ==
--- NOTE | 2022-03-16 14:16 | CT_ITS ---
STUDY: CT CHEST, ABDOMEN T PELVIS WITH CONTRAST REASON FOR EXAM: Female, 51 years old. Stage IV breast cancer, monitoring RADIATION DOSAGE (If Supplied By Facility): CTDIvol = ( 11.16 ) mGy, DLP = ( 964.27 ) mGycm TECHNIQUE: Transaxial imaging was performed following intravenous administration of Oral and amp; IV Gastrografin and amp; 100mL Isovue-370. Multiplanar coronal and sagittal images were reformatted. Individualized dose optimization techniques were used for this CT. COMPARISON: Comparison is made with prior examination dated 09/03/2021. FINDINGS: CHEST A left-sided portacatheter is seen with the tip in the superior vena cava. Surgical clips are seen in the deep lateral aspect of the right breast in keeping with prior surgery. There is evidence of overlying skin thickening of the right breast. The lungs are normal. There is no demonstrated pleural abnormality. Normal heart and pericardium. Normal mediastinum. Normal hilar regions. Normal unenhanced pulmonary arteries. Normal aorta arch and descending thoracic aorta. There are degenerative changes of the thoracic spine. ABDOMEN There is decreased attenuation of the liver consistent with steatosis. Normal gallbladder and extrahepatic biliary system. Normal spleen. Normal pancreas. Normal bilateral adrenal glands. Normal right kidney. Normal left kidney. Normal visualized stomach. Normal small intestine. Moderate amount of fecal material is seen in the sigmoid colon. The appendix is visualized and appears normal. Normal abdominal aorta. Normal inferior vena cava. Normal retroperitoneum. Normal abdominal wall. There are degenerative changes of the visualized lumbar spine. PELVIS Normal urinary bladder. There is no pelvic fluid. There is no pelvic lymphadenopathy or mass lesion. Normal visualized pelvic arteries. CT/CT Chest, Abd, Pel w/Contrast IMPRESSION: Stable examination. Electronically Signed: Guillaume Leroy MD at 15:42 EST ,
[2022-03-16] MEDS: 0.9% Saline Lock 10 ML Syringe IV (14:40)
[2022-03-16 14:41] LABS: CREATININE FINGERSTICK < 0.9 mg/dL (0.55-1.02); EGFR FINGERSTICK > 60.0000 mL/min (>60)
== END | disposition home or self-care (01) ==
PROVIDERS: PCP Family Medicine; Referring Provider Student in an Organized Health Care Education/Training Program; Visit Provider Student in an Organized Health Care Education/Training Program
DX: C50.911 Malignant neoplasm of unspecified site of right female breast (principal); C77.1 Secondary and unspecified malignant neoplasm of intrathoracic lymph nodes; C77.3 Secondary and unspecified malignant neoplasm of axilla and upper limb lymph nodes
CPT/HCPCS: 71260; 74177; Q9967; A4216

== ENCOUNTER → 2022-05-25 | Outpatient (CLI) | payer BC, SELFPAY ==
[2022-05-25 15:40] LABS: Absolute Lymphocyte Count 0.71 X10^3/uL (0.83-4.51); Absolute Neutrophil Count 2.8 X10^3/uL (2.0-7.7); Basophil# 0.04 X10^3/uL; Eosinophil# 0.08 X10^3/uL; Hematocrit 40.2 % (37-47); Hemoglobin 12.9 g/dL (12.0-15.0); Lymphocyte # 0.71 X10^3/ul (0.83-4.51); Lymphocyte % 17.3 % (19-41); Mean Corp Hgb Conc 32.1 g/dL (32-36); Mean Corpuscular Hgb 29.7 pg (27.0-32.0); Mean Corpuscular Volume 92.6 fL (81-99); Mean Platelet Vol. 11.8 fl (6.2-12.0); Monocyte# 0.43 X10^3/uL; Monocyte% 10.5 % (0-10); NRBC Flagged by Analyzer 0 % (0-5); Neutrophil # 2.83 X10^3/uL (2.7-7.7); Platelet Count 226 K/mm3 (150-450); RBC Distribution Width CV 12.6 % (11.6-14.6); RBC Distribution Width SD 42.8 fl (35.1-43.9); Red Blood Count 4.34 M/mm3 (4.2-5.4); White Blood Count 4.1 K/mm3 (4.4-11.0)
[2022-05-25 17:31] LABS: ALB/GLOB Ratio 1.1 RATIO (0.9-2.4); AST(SGOT) 18 U/L (15-37); Alanine Aminotransfer ALT/SGPT 26 U/L (13-56); Albumin, Serum 3.7 g/dL (3.2-5.0); Alkaline Phosphatase 87 U/L (45-117); Anion Gap 4 (5-15); BUN 7 mg/dL (7-18); BUN/Creat Ratio 11.6 RATIO (10-20); Calcium,Total 9.3 mg/dL (8.5-10.1); Chloride 110 mmol/L (98-107); EST Glomerular Filtration Rate 111 mL/min (>60); Est Glom Filt Rate - Afr Amer 134 mL/min (>60); Globulin 3.3 g/dL (2.2-4.2); Glucose 94 mg/dL (74-106); LDH 244 U/L (84-246); Potassium 3.5 mmol/L (3.5-5.1); Sodium Level 141 mmol/L (136-145)
[2022-05-27 08:09] LABS: CA 27.29 23.8 U/mL (0.0-38.6); Cancer Antigen 125 7.7 U/mL (0.0-38.1)
== END | disposition home or self-care (01) ==
LOC: MFPLAB 12:07
PROVIDERS: PCP Family Medicine; Visit Provider Internal Medicine Medical Oncology
DX: C50.919 Malignant neoplasm of unspecified site of unspecified female breast (principal); C77.1 Secondary and unspecified malignant neoplasm of intrathoracic lymph nodes; C77.3 Secondary and unspecified malignant neoplasm of axilla and upper limb lymph nodes
CPT/HCPCS: 36415; 80053; 83615; 85025; 86300; 86304

== ENCOUNTER → 2022-11-12 | Outpatient (CLI) | payer BC, SELFPAY ==
--- NOTE | 2022-11-12 09:00 | BI_ITS ---
MAMMOGRAPHY - BILATERAL SCREENING REASON FOR EXAM: Female, 52 years old. Routine annual screening examination. PERTINENT HISTORY: Personal history of breast cancer. Prior right lumpectomy with chemotherapy and radiation. Grandmother with breast cancer. Aunt with breast cancer. TECHNIQUE: Digital bilateral breast brianna (3D mammographic acquisition) in the CC and MLO projections. 2-D mediolateral oblique (MLO) and craniocaudad (CC) views of both breasts were obtained. CAD: Full Field Digital Mammography with Computer Added Detection was performed. COMPARISON: Comparison is made with prior examination dated October 31, 2021 and January 01, 2021. FINDINGS: Breast Composition: The breasts are heterogeneously dense, which may obscure small masses. There are no dominant masses or suspicious calcifications. The patient is status post lumpectomy in the deep upper axillary region of the right breast with resultant postoperative deformity. No other significant abnormalities are identified. There has been no significant change since the prior study. BI/SCRN MAMM (CAD)W/BRIANNA BILAT IMPRESSION: Stable bilateral screening mammogram. Yearly follow-up mammogram recommended. (A) ASSESSMENT CATEGORY: BIRADS Category 2: Benign. A letter regarding these results will be sent to the patient by the facility within 30 days. Approximately 10% of breast cancers are not detected by mammography. A normal mammogram should not delay biopsy of a clinically suspicious abnormality. [id number] Electronically Signed: Guillaume Leroy MD at 10:19 EDT ,
== END | disposition home or self-care (01) ==
LOC: OPBI 08:59
PROVIDERS: PCP Family Medicine; Referring Provider Student in an Organized Health Care Education/Training Program; Visit Provider Student in an Organized Health Care Education/Training Program
DX: Z12.31 Encounter for screening mammogram for malignant neoplasm of breast (principal); Z85.3 Personal history of malignant neoplasm of breast; Z80.3 Family history of malignant neoplasm of breast
CPT/HCPCS: 77063; 77067

== ENCOUNTER → 2022-11-13 | Outpatient (CLI) | payer BC, SELFPAY ==
[2022-11-13 15:16] LABS: Absolute Lymphocyte Count 0.83 X10^3/uL (0.83-4.51); Basophil# 0.04 X10^3/uL; Basophil% 0.9 % (0-1); Eosinophil# 0.05 X10^3/uL; Eosinophils% 1.2 % (0-5); Hematocrit 41.8 % (37-47); Hemoglobin 13.6 g/dL (12.0-15.0); Lymphocyte # 0.83 X10^3/ul (0.83-4.51); Lymphocyte % 19.2 % (19-41); Mean Corp Hgb Conc 32.5 g/dL (32-36); Mean Corpuscular Hgb 30.2 pg (27.0-32.0); Mean Corpuscular Volume 92.9 fL (81-99); Mean Platelet Vol. 10.9 fl (6.2-12.0); Monocyte# 0.39 X10^3/uL; NRBC Flagged by Analyzer 0 % (0-5); Neutrophil % 69.5 % (47-70); Platelet Count 231 K/mm3 (150-450); RBC Distribution Width CV 13.1 % (11.6-14.6); RBC Distribution Width SD 44.5 fl (35.1-43.9); White Blood Count 4.3 K/mm3 (4.4-11.0)
[2022-11-13 15:33] LABS: ALB/GLOB Ratio 1.1 RATIO (0.9-2.4); AST(SGOT) 13 U/L (15-37); Alanine Aminotransfer ALT/SGPT 31 U/L (13-56); Albumin, Serum 3.8 g/dL (3.2-5.0); Alkaline Phosphatase 97 U/L (45-117); Anion Gap 5 (5-15); BUN 9 mg/dL (7-18); BUN/Creat Ratio 12.6 RATIO (10-20); Calcium,Total 9.2 mg/dL (8.5-10.1); Chloride 106 mmol/L (98-107); Creatinine, Serum 0.72 mg/dL (0.55-1.02); EST Glomerular Filtration Rate 91 mL/min (>60); Est Glom Filt Rate - Afr Amer 110 mL/min (>60); Globulin 3.4 g/dL (2.2-4.2); Glucose 89 mg/dL (74-106); LDH 269 U/L (84-246); Potassium 3.3 mmol/L (3.5-5.1); Protein, Total 7.2 g/dL (6.4-8.2); Sodium Level 142 mmol/L (136-145)
[2022-11-15 08:07] LABS: CA 15-3 23.5 U/mL (0.0-25.0); CA 27.29 28.7 U/mL (0.0-38.6)
== END | disposition home or self-care (01) ==
LOC: MTLAB 13:22
PROVIDERS: PCP Family Medicine; Referring Provider Internal Medicine Medical Oncology; Visit Provider Internal Medicine Medical Oncology
DX: C50.919 Malignant neoplasm of unspecified site of unspecified female breast (principal); C77.3 Secondary and unspecified malignant neoplasm of axilla and upper limb lymph nodes
CPT/HCPCS: 36415; 80053; 83615; 85025; 86300

== ENCOUNTER → 2023-01-28 | Outpatient (CLI) | payer BC, SELFPAY ==
--- NOTE | 2023-01-28 13:40 | ECHODONC_ITS ---
Reason For Study: NON RHEUMATIC MITRAL INSUFF. Procedure This was a 2D Doppler, Color Flow transthoracic echocardiogram. Myocardial strain analysis was performed in this exam to aid in the assessment of cardiac function. Exam performed in department. Left Ventricle Normal LV size. Left ventricular systolic function is normal. The estimated ejection fraction is 55 %. Stage 1 diastolic dysfunction. No regional wall motion abnormalities noted. Right Ventricle Normal RV size. Normal systolic function. Atria Normal left atrium. Normal right atrium. Mitral Valve Normal mitral valve. Tricuspid Valve Normal tricuspid valve. Mild tricuspid valve insufficiency. Pulmonary artery systolic pressure is 23 mmHg. Aortic Valve Normal aortic valve. Pulmonic Valve Normal pulmonic valve. Great Vessels Normal aortic root. The pulmonary artery is normal size. Normal inferior vena cava. Pericardium/Pleural No pericardial effusion. MMode/2D Measurements & Calculations LVIDd: 4.2 cm IVSd: 0.89 cm Ao root diam: 3.3 cm LVIDs: 3.0 cm LVPWd: 0.86 cm LA dimension: 3.3 cm FS: 27.2 % LAV(MOD-bp): 31.4 ml LVAd ap4: 25.4 cm2 LVAd ap2: 23.1 cm2 LAV(MOD-bp) Indexed: 19.4 ml/m2 LVLd ap4: 7.8 cm LVLd ap2: 7.4 cm LAV(MOD-sp2): 30.7 ml EDV(MOD-sp4): 68.7 ml EDV(MOD-sp2): 61.6 ml LAV(MOD-sp4): 32.0 ml EDV(sp4-el): 70.1 ml EDV(sp2-el): 61.8 ml LVAs ap4: 13.6 cm2 LVAs ap2: 12.4 cm2 LVLs ap4: 6.5 cm LVLs ap2: 6.1 cm ESV(MOD-sp4): 25.8 ml ESV(MOD-sp2): 23.2 ml ESV(sp4-el): 24.1 ml ESV(sp2-el): 21.7 ml EF(MOD-sp4): 62.5 % EF(MOD-sp2): 62.4 % EF(sp4-el): 65.6 % SV(MOD-sp4): 42.9 ml SV(MOD-sp2): 38.4 ml SV(sp4-el): 45.9 ml TAPSE: 1.9 cm LA A4 area: 13.4 cm2 RA A4 area: 11.0 cm2 Time Measurements MV dec time: 0.19 sec Doppler Measurements & Calculations MV E max brendon: 67.2 cm/sec Lat Peak E' Brendon: 10.4 cm/sec Med Peak E' Brendon: 6.3 cm/sec MV A max brendon: 77.3 cm/sec E/E' lat: 6.5 E/E' med: 10.7 MV E/A: 0.87 MV V2 max: 108.9 cm/sec MV P1/2t max brendon: 108.9 cm/sec Ao V2 max: 173.5 cm/sec MV max P.7 mmHg MV P1/2t: 56.5 msec Ao max P.1 mmHg MV V2 mean: 72.0 cm/sec MV dec slope: 564.4 cm/sec2 Ao V2 mean: 114.0 cm/sec MV mean P.3 mmHg Ao mean P.8 mmHg MV V2 VTI: 24.7 cm MVA(P1/2t): 3.9 cm2 Ao V2 VTI: 32.8 cm AV (velocity ratio): 0.76 LV V1 max: 106.4 cm/sec PA V2 max: 106.5 cm/sec PI dec slope: 236.6 cm/sec2 LV V1 max P.5 mmHg PA V2 mean: 65.3 cm/sec LV V1 mean P.4 mmHg PA V2 VTI: 20.9 cm LV V1 mean: 71.8 cm/sec LV V1 VTI: 24.9 cm TR max brendon: 223.2 cm/sec TR max P.9 mmHg ECHO/ONC Echo Complete Interpretation Summary Normal LV size. Left ventricular systolic function is normal. The estimated ejection fraction is 55 %. Stage 1 diastolic dysfunction. The global longitudinal strain is normal. The global longitudinal strain = -18. 8 % (normal). Ordering Physician: Aroldo Mcconnell Referring Physician: Yamila Roth Performed By: Sayra Marcum RDCS, RVT
== END | disposition home or self-care (01) ==
LOC: CVS 08:56
PROVIDERS: PCP Family Medicine; Referring Provider Internal Medicine Cardiovascular Disease; Visit Provider Internal Medicine Cardiovascular Disease
DX: I34.0 Nonrheumatic mitral (valve) insufficiency (principal); Z51.81 Encounter for therapeutic drug level monitoring; Z79.899 Other long term (current) drug therapy
CPT/HCPCS: 93306; 93356

== ENCOUNTER 2023-05-07 13:27 | Outpatient (CLI) | payer BC, SELFPAY ==
[2023-05-07 15:22] LABS: Absolute Lymphocyte Count 0.95 X10^3/uL (0.83-4.51); Absolute Neutrophil Count 3.7 X10^3/uL (2.0-7.7); Basophil# 0.03 X10^3/uL; Basophil% 0.6 % (0-1); Eosinophil# 0.04 X10^3/uL; Eosinophils% 0.8 % (0-5); Hematocrit 42.5 % (37-47); Hemoglobin 13.7 g/dL (12.0-15.0); Lymphocyte # 0.95 X10^3/ul (0.83-4.51); Mean Corp Hgb Conc 32.2 g/dL (32-36); Mean Corpuscular Hgb 29.4 pg (27.0-32.0); Mean Corpuscular Volume 91.2 fL (81-99); Mean Platelet Vol. 11.2 fl (6.2-12.0); Monocyte# 0.32 X10^3/uL; Monocyte% 6.4 % (0-10); NRBC Flagged by Analyzer 0 % (0-5); Neutrophil # 3.66 X10^3/uL (2.7-7.7); Platelet Count 248 K/mm3 (150-450); RBC Distribution Width CV 12.5 % (11.6-14.6); RBC Distribution Width SD 41.4 fl (35.1-43.9); Red Blood Count 4.66 M/mm3 (4.2-5.4)
[2023-05-07 16:12] LABS: ALB/GLOB Ratio 1.1 RATIO (0.9-2.4); AST(SGOT) 17 U/L (15-37); Alanine Aminotransfer ALT/SGPT 27 U/L (13-56); Alkaline Phosphatase 91 U/L (45-117); Anion Gap 5 (5-15); BUN 11 mg/dL (7-18); BUN/Creat Ratio 15.3 RATIO (10-20); Calcium,Total 9.6 mg/dL (8.5-10.1); Chloride 109 mmol/L (98-107); Creatinine, Serum 0.72 mg/dL (0.55-1.02); EST Glomerular Filtration Rate 90 mL/min (>60); Est Glom Filt Rate - Afr Amer 109 mL/min (>60); Globulin 3.6 g/dL (2.2-4.2); Glucose 64 mg/dL (74-106); LDH 237 U/L (84-246); Protein, Total 7.6 g/dL (6.4-8.2); Sodium Level 142 mmol/L (136-145)
[2023-05-09 09:07] LABS: CA 15-3 25.1 U/mL (0.0-25.0); CA 27.29 27.5 U/mL (0.0-38.6); Cancer Antigen 125 7.3 U/mL (0.0-38.1); Carcinoembryonic Antigen 2.2 ng/mL (0.0-4.7)
== END 2023-05-07 23:59 | disposition home or self-care (01) ==
LOC: MTLAB 13:27
PROVIDERS: PCP Family Medicine; Referring Provider Internal Medicine Medical Oncology; Visit Provider Internal Medicine Medical Oncology
DX: C50.919 Malignant neoplasm of unspecified site of unspecified female breast (principal); C77.3 Secondary and unspecified malignant neoplasm of axilla and upper limb lymph nodes
CPT/HCPCS: 36415; 80053; 82378; 83615; 85025; 86300; 86304

== ENCOUNTER 2023-06-15 14:46 | Outpatient (CLI) | payer BC, SELFPAY ==
[2023-06-17 08:12] LABS: CA 27.29 28.4 U/mL (0.0-38.6); Cancer Antigen 125 7.4 U/mL (0.0-38.1); Carcinoembryonic Antigen 2.1 ng/mL (0.0-4.7)
== END 2023-06-15 23:59 | disposition home or self-care (01) ==
LOC: MFPLAB 14:46
PROVIDERS: PCP Family Medicine; Visit Provider Internal Medicine Medical Oncology
DX: C50.411 Malignant neoplasm of upper-outer quadrant of right female breast (principal)
CPT/HCPCS: 36415; 82378; 86300; 86304

== ENCOUNTER 2023-06-24 08:48 | Outpatient (RCR) | payer BC, SELFPAY | END 2023-06-24 19:00 | disposition home or self-care (01) | LOC: PT 08:48 | PROVIDERS: PCP Family Medicine; Referring Provider Family Medicine; Visit Provider Family Medicine | DX: S46.001D Unspecified injury of muscle(s) and tendon(s) of the rotator cuff of right shoulder, subsequent encounter (principal) ==

== ENCOUNTER → 2023-07-02 | Outpatient (CLI) | payer BC, SELFPAY ==
--- NOTE | 2023-07-02 07:10 | CT_ITS ---
EXAM: CT CHEST, ABDOMEN AND PELVIS WITH INTRAVENOUS CONTRAST CLINICAL INDICATION: BREAST CA-ELEVATED CA MARKERS TECHNIQUE: Helically acquired images were obtained of the chest, abdomen and pelvis with intravenous contrast. This CT exam was performed using one or more of the following dose reduction techniques: automated exposure control, adjustment of the mA and/or kV according to patient size, and/or use of iterative reconstruction technique. CONTRAST: IV 100mL Isovue-300 COMPARISON: No relevant prior studies available. FINDINGS: CHEST: LUNGS AND PLEURAL SPACES: Normal. No mass. No consolidation or edema. No pleural effusion or thickening. No pneumothorax. HEART: Normal. Heart size is normal. No pericardial effusion. MEDIASTINUM: Normal. No mediastinal or hilar adenopathy. Esophagus is unremarkable. No hiatal hernia. THYROID: Normal. No thyroid nodules or calcification. ABDOMEN: LIVER: Normal. Homogeneous. No focal mass. PANCREAS: Normal. No focal cystic or solid mass. SPLEEN: Normal. Normal size without focal cystic or solid mass. ADRENALS: Normal. No nodules. KIDNEYS AND URETERS: Normal. Normal renal size and position. No hydronephrosis. STOMACH AND BOWEL: Normal. No bowel obstruction or ileus. No focal inflammatory change. PELVIS: APPENDIX: Appendix is visualized and normal in appearance. BLADDER: Normal. REPRODUCTIVE: Hysterectomy noted. CHEST, ABDOMEN and PELVIS: INTRAPERITONEAL SPACE: Normal. No ascites or other fluid collection. No free air. BONES/JOINTS: Stable hemangioma of the T10 vertebral body. SOFT TISSUES: Postoperative changes of the right breast again seen. No discrete abdominal or pelvic wall hernia. VASCULATURE: Normal. Aorta is non-dilated. No aortic dissection. No obvious central pulmonary embolism although this study was not performed with the pulmonary embolism protocol. LYMPH NODES: Normal. No enlarged lymph nodes. TUBES, LINES AND DEVICES: Tip of the left IJ which usually catheter extends to the cavoatrial junction. CT/CT Chest, Abd, Pel w/Contrast IMPRESSION: Stable CT of chest abdomen and pelvis. No evidence of metastatic disease. Electronically Signed: Asad Harvey MD at 8:55 EDT Reading Location ID and State: [facility] / [place] Tel , Service support ,
[2023-07-02] MEDS: 0.9 % NaCl (Sterile) Posiflush 10 mL IV (07:15)
[2023-07-02] MEDS: 0.9% Saline Lock 10 ML Syringe IV (07:15)
[2023-07-02 07:39] LABS: CREATININE FINGERSTICK < 1.0 mg/dL (0.55-1.02); EGFR FINGERSTICK > 60.0000 mL/min (>60)
== END | disposition home or self-care (01) ==
LOC: CT 07:10
PROVIDERS: PCP Family Medicine; Referring Provider Internal Medicine Medical Oncology; Visit Provider Internal Medicine Medical Oncology
DX: C50.911 Malignant neoplasm of unspecified site of right female breast (principal); C77.1 Secondary and unspecified malignant neoplasm of intrathoracic lymph nodes; C77.3 Secondary and unspecified malignant neoplasm of axilla and upper limb lymph nodes; R52 Pain, unspecified
CPT/HCPCS: 71260; 74177; Q9967; A4216

== ENCOUNTER → 2023-07-15 | Outpatient (CLI) | payer BC, SELFPAY ==
--- NOTE | 2023-07-15 09:01 | NM_ITS ---
CLINICAL: 52-year-old female with history of primary breast carcinoma. WHOLE BODY 99m Tc MDP RADIONUCLIDE BONE SCINTIGRAPHY COMPARISON: Previous whole body bone scintigraphy study report dated 08/24/2019 FINDINGS: Following the intravenous administration of 27.6 mCi of 99m Tc MDP, whole body bone images reveal: 1. Increased radiopharmaceutical concentration is defined in the acromioclavicular and sternoclavicular compartments of both shoulders, the patellofemoral compartments of both knees, the dorsal medial compartment of the bilateral ankles. 2. The remaining skeletal structures are scintigraphically unremarkable with normal-appearing renal images and urinary bladder activity identified. NM/Bone Scan Whole Body IMPRESSION: 1. The increase in radiopharmaceutical concentration identified in the bilateral shoulders and knees, the right-left ankle articulations is most consistent with degenerative arthritis. 2. Overall compared to the previous whole body bone scintigraphy report dated 08/24/2019, there is no definitive interval change. No scintigraphic evidence of diffuse axial skeletal metastatic disease is expressed on the current examination. Electronically Signed: Herber St DO at 11:08 EDT ,
== END | disposition home or self-care (01) ==
LOC: NM 09:00
PROVIDERS: PCP Family Medicine; Referring Provider Nurse Practitioner Family; Visit Provider Nurse Practitioner Family
DX: C50.411 Malignant neoplasm of upper-outer quadrant of right female breast (principal); Z17.1 Estrogen receptor negative status [ER-]; R97.8 Other abnormal tumor markers
CPT/HCPCS: 78306; A9503

== ENCOUNTER 2023-08-05 05:59 | Day surgery (SDC) | payer BC, SELFPAY ==
[2023-08-05] VITALS (15 sets, daily range): BP systolic 118–152; BP diastolic 74–90; PULSE 60–83; RESP 12–18; TEMP 35.7–36.6; O2SAT 94–100; BMI 27.3
[2023-08-05] MEDS: Lactated Ringers 1,000 ML 15 ML IV ×2 (06:41→09:02)
--- NOTE | 2023-08-05 07:23 | HP.PCM_ITS ---
History and Physical Date of Admission: 08/05/23 The patient is examined and there are no changes to the H&P dated 07/23/23. Pt for left breast reduction for symmetry s/p right breast lumpectomy and radiation Assessment & Plan Assessment/Plan (1) Status post right breast lumpectomy: (2) Breast asymmetry between [place] breast and reconstructed breast: (3) Breast hypertrophy: PLAN: Plan for left breast reduction for symmetry
--- NOTE | 2023-08-05 07:30 | PRE.ANES_ITS ---
ASA Classification* ASA Classification ASA Classification: 3 Assessment & Plan Anesthesia* Anesthesia Assessment Anesthesia Assessment: Discussed sedation and/or anesthesia options, risks, benefits, and alternatives with patient/parents/legal guardian/POA. Questions invited. The patient/parents/legal guardian/POA seems to understand and agrees to proceed with anesthesia plan. Reviewed the physical assessment, medical history, allergy history and patient home medications list prior to surgery/procedure/anesthetic and documented any changes. Performed airway and anesthesia risk assessments. Procedural Plan Procedural Plan:: Proceed w/ Anesthesia plan Anesthesia Type Anesthesia Type: General History Source History Obtained from:: Patient and Chart Anesthesia Focused Assessment* Temperature: 98 F Pulse Rate: 74 Blood Pressure: 118/74 Respiratory Rate: 18 Pulse Ox: 100 Airway Assessment Mouth opens: >3 cm Mallampati Score: II Teeth Condition: Intact Neck Range of motion (ROM): Full ROM Focused Labs Anesthesia Preop lab: CBC WBC 3.7 K/mm3 (4.4-11.0) L 07/08/23 14:23 RBC 4.33 M/mm3 (4.2-5.4) 07/08/23 14:23 Hgb 13.0 g/dL (12.0-15.0) 07/08/23 14:23 Hct 39.0 % (37-47) 07/08/23 14:23 Plt Count 193 K/mm3 (150-450) 07/08/23 14:23 CHEMISTRY Potassium 4.2 mmol/L (3.5-5.1) 07/08/23 14:23 Sodium 141 mmol/L (136-145) 07/08/23 14:23 Magnesium 2.4 mg/dL (1.6-2.6) 05/14/21 08:35 Phosphorus 3.5 mg/dL (2.5-4.9) 09/12/20 08:05 BUN 9 mg/dL (7-18) 07/08/23 14:23 Creatinine 0.68 mg/dL (0.55-1.02) 07/08/23 14:23 Glucose 90 mg/dL (74-106) 07/08/23 14:23 POC Glucose 113 mg/dL (74-106) H 05/19/21 05:59 COAG PT 12.7 SECONDS (11.7-14.9) 08/14/21 09:55 Urine Test Negative Negative 01/01/21 10:15 Pre-Assessment Diagnosis/Proposed Procedure Planned Operative Procedure(s): LEFT BREAST REDUCTION FOR SYMMETRY Anesthesia History Anesthesia History - vp client services: Anesthesia History - vp client services Hx Hospitalization No 07/28/23 13:33 Any Problems With Anesthesia No 07/28/23 13:33 Cholinesterase deficiency No 07/28/23 13:33 You/Your Family Experience No 07/28/23 13:33 fever (hyperthermia) with Relationship Recent Exposure to Contagious No 08/05/23 06:38 Disease Does patient have nerve No 07/28/23 13:33 stimulator Patient instructed to have device shut off --Does patient have Pacemaker No 08/05/23 06:38 or ICD? When Was Last Pacemaker Check QUESTION #4 FULL TEXT: You/Your Family Experience fever (hyperthermia) with Anesthesia Last Oral Intake Last Oral intake: Last Oral Intake NPO since 05:20 08/05/23 06:38 Meds taken in AM with sips of Yes 08/05/23 06:38 water? Meds patient instructed to tamoxifen, losartan 08/05/23 06:38 take am of surgery PONV PONV - vp client services: PONV - vp client services Female Yes 07/28/23 13:33 HX of Motion Sickness No 07/28/23 13:33 HX of N/V After Surgery No 07/28/23 13:33 Non-Smoker Yes 07/28/23 13:33 Duration of Surgery greater Yes 07/28/23 13:33 than 60 minutes Number of Risk Factors 3 07/28/23 13:33 PONV Score Moderate Risk 07/28/23 13:33 Height & Weight Height & Weight: Anesthesia: Height & Weight Height 5 ft 2 in 08/05/23 06:38 Weight: 68 kg 08/05/23 06:38 Body Mass Index (BMI) 27.3 08/05/23 06:38 Respiratory Assessment Respiratory Assessment - vp client services: Respiratory Tract Infection Hx - vp client services Hx Respiratory Tract Infection No 07/28/23 13:33 STOP Sleep Apnea STOP Sleep Apnea - vp client services: STOP Sleep Apnea - vp client services Hx Hypertension Yes: CONTROLLED WITH MED 07/28/23 13:33 Hx Sleep Apnea No 07/28/23 13:33 CPAP BIPAP Do you snore loudly (louder No 07/28/23 13:33 than talking or can be heard Do you often feel tired/ No 07/28/23 13:33 fatigued/ sleepy during daytime? Has anyone observed you stop No 07/28/23 13:33 breathing during sleep? STOP Results Negative 07/28/23 13:33 QUESTION #5 FULL TEXT : Do you snore loudly (louder than talking or can be heard through closed doors)? Tobacco Use History Tobacco Use History - vp client services: Tobacco Use History - vp client services Tobacco Use Smoking Status Former smoker 07/28/23 13:33 Hx Tobacco Use No 07/28/23 13:33 Years Smoking Packs Smoked per Day Smoking Cessation Date was No - quit smoking greater 07/28/23 13:33 within the last 15 years than 15 years ago Hx Smoking Cessation Date 02/09/00 07/28/23 13:33 Hx Smoking Cessation No 07/28/23 13:33 Counseling Hematologic Medial History Hematologic Hx - vp client services: Hematologic Medical Hx - scientific affairs manager Hx of Blood Transfusion No 07/28/23 13:33 Hx of Transfusion in last 3 No 07/28/23 13:33 Months Date of Last Transfusion (if within last 3 months) Ever experience any problems No 07/28/23 13:33 with transfusion(s)? Specify any problems Hx of Preganancy in last 3 No 07/28/23 13:33 Months Nurse Filling Out Transfusion DSCHRIBER 07/28/23 13:33 & Questions: Date: 07/28/23 07/28/23 13:33 Time: 13:34 07/28/23 13:33 Patient unable to answer at this time (ie. confused, unrespo /Reproduction History /Reproductive History - vp client services: /Reproductive Hx- vp client services Hx Now No 07/28/23 13:33 Gestational Age (in weeks): EDC: Hx Hx Para Hx Section SAB No 07/28/23 13:33 Active Medications Active Medications: Current Medications Generic Name Dose Route Start Last Admin Trade Name Freq PRN Reason Stop Dose Admin Cefazolin Sodium 2 gm/ Sodium 110 mls @ 150 mls/hr 08/05/23 07:30 Chloride IV 08/05/23 08:13 PREOP ONE Lactated Ringer's 1,000 mls @ 15 mls/hr 08/05/23 06:15 08/05/23 06:41 IV 15 mls/hr .Q48H ALLISON Administration PFSH Medical History (Updated 08/05/23 @ 07:[address] Joana Flores MD) Cancer Hypertension History of echocardiogram Cardiology follow-up encounter History of breast cancer Elevated CA 15-3 level Post-menopausal Anemia Former smoker Port-A-Cath in place Pruritus Encounter for monitoring cardiotoxic drug therapy Ingrown toenail DVT of axillary vein, acute left Nipple discharge Irregular menstrual bleeding Abnormal ultrasound of breast Abnormal mammogram of right breast Breast mass, right Home Medications ?Medication ?Instructions ?Recorded ?Last Taken ?Type losartan 50 mg tablet 50 mg PO DAILY #90 tabs 11/29/20 08/05/23 Rx clonidine HCl 0.1 mg tablet 0.1 mg PO QHS PRN HOT FLASHES 07/20/23 Unknown History tamoxifen 20 mg tablet 20 mg PO DAILY 07/28/23 08/05/23 History Allergy/AdvReac Type Severity Reaction Status Date / Time No Known Allergies Allergy Verified 08/05/23 06:37 Family History Father Diabetes Hypertension Cancer renal cell cancer/ nephrectomy Myocardial infarction, Onset Age: 76 from [place] Grandfather Parkinsons Grandmother Thyroid disorder Diabetes Breast cancer paternal grandmother Mother Thyroid disorder Surgical History (Updated 07/28/23 @ 13:39 by Bekah Beltran) Hx of abdominal hysterectomy History of lumpectomy of right breast History of right breast biopsy (07/2019) Hx of left knee surgery Hx of tonsillectomy Social History Smoking Status: Former smoker second hand exposure: No alcohol intake: never substance use type: does not use caffeine: Yes Review of Systems (Anesthesia) ROS Narrative System reviewed and no additional complaints, except as documented.
--- NOTE | 2023-08-05 07:30 | BR_PTH ---
PATIENT: CÉSAR CASTELLANOS [place] [facility] [place][id number] AGE/SX: 52/F ROOM: RE08/05/[address]: Dr. Joana Flores MD : 1970 BED: DIS: 08/05/2023 SPEC #: [id number] RECD: 08/05/23 10:51 STATUS: AZIZA REBecca #: [id number] THOMAS: 08/05/23 07:[address]: Joana Flores DEPT: SURGICAL PATHOLOGY RECD BY: Tyesha Lakhani ENTERED: 08/05/23 12:27 SP TYPE: MAMOPLASTY OTHR DR: Dr. Yamila Roth MD Tissues: Left breast, NOS Procedures: Surgery Specimen Level IV HEADER OPERATION: Left breast reduction of symmetry, status post right lumpectomy PRE-OP DIAGNOSIS: Status post right breast lumpectomy, breast asymmetry, breast hypertrophy TISSUE SUBMITTED: Left breast tissue 48 gm- weight in OR 48.0gm MICROSCOPIC DIAGNOSIS Left breast, reduction mammoplasty: Focal, non- proliferative fibrocystic change. No evidence of malignancy. Skin with no pathologic change. See comment. / 08/09/2023 COMMENT The findings are consistent with reduction mammoplasty. Clinical correlation is suggested. MICROSCOPIC DESCRIPTION Slides are reviewed. GROSS DESCRIPTION Received in fixative is one container labeled with the patient's name and designated left breast tissue. The specimen consists of multiple pieces of fibroadipose tissue with a few of the pieces showing lawson-white skin, weighing in aggregate 48.0 gm and measuring in aggregate 10.0 x 9.0 x 3.0 cm. No skin lesion is identified. Sections reveal yellow adipose cut surfaces mixed without any obvious mass lesion. Seam Hammerer sections are submitted in six cassettes. Cassette 1 contains the underlying tissue. Sections are submitted after additional fixation. / 08/05/2023 TC:5 CPT:36673
--- NOTE | 2023-08-05 07:38 | PRE.ANES_ITS ---
ASA Classification* ASA Classification ASA Classification: 3 Assessment & Plan Anesthesia* Anesthesia Assessment Anesthesia Assessment: Discussed sedation and/or anesthesia options, risks, benefits, and alternatives with patient/parents/legal guardian/POA. Questions invited. The patient/parents/legal guardian/POA seems to understand and agrees to proceed with anesthesia plan. Reviewed the physical assessment, medical history, allergy history and patient home medications list prior to surgery/procedure/anesthetic and documented any changes. Performed airway and anesthesia risk assessments. Procedural Plan Procedural Plan:: Proceed w/ Anesthesia plan Anesthesia Type Anesthesia Type: General (see written pre anesthesia record for full assessment) Anesthesia Focused Assessment* Temperature: 98 F Pulse Rate: 74 Blood Pressure: 118/74 Respiratory Rate: 18 Pulse Ox: 100 Airway Assessment Mouth opens: >3 cm Mallampati Score: II Focused Labs Anesthesia Preop lab: CBC WBC 3.7 K/mm3 (4.4-11.0) L 07/08/23 14:23 RBC 4.33 M/mm3 (4.2-5.4) 07/08/23 14:23 Hgb 13.0 g/dL (12.0-15.0) 07/08/23 14:23 Hct 39.0 % (37-47) 07/08/23 14:23 Plt Count 193 K/mm3 (150-450) 07/08/23 14:23 CHEMISTRY Potassium 4.2 mmol/L (3.5-5.1) 07/08/23 14:23 Sodium 141 mmol/L (136-145) 07/08/23 14:23 Magnesium 2.4 mg/dL (1.6-2.6) 05/14/21 08:35 Phosphorus 3.5 mg/dL (2.5-4.9) 09/12/20 08:05 BUN 9 mg/dL (7-18) 07/08/23 14:23 Creatinine 0.68 mg/dL (0.55-1.02) 07/08/23 14:23 Glucose 90 mg/dL (74-106) 07/08/23 14:23 POC Glucose 113 mg/dL (74-106) H 05/19/21 05:59 COAG PT 12.7 SECONDS (11.7-14.9) 08/14/21 09:55 Urine Test Negative Negative 01/01/21 10:15 Pre-Assessment Diagnosis/Proposed Procedure Planned Operative Procedure(s): LEFT BREAST REDUCTION FOR SYMMETRY Anesthesia History Anesthesia History - dispatcher chief oil: Anesthesia History - dispatcher chief oil Hx Hospitalization No 07/28/23 13:33 Any Problems With Anesthesia No 07/28/23 13:33 Cholinesterase deficiency No 07/28/23 13:33 You/Your Family Experience No 07/28/23 13:33 fever (hyperthermia) with Relationship Recent Exposure to Contagious No 08/05/23 06:38 Disease Does patient have nerve No 07/28/23 13:33 stimulator Patient instructed to have device shut off --Does patient have Pacemaker No 08/05/23 06:38 or ICD? When Was Last Pacemaker Check QUESTION #4 FULL TEXT: You/Your Family Experience fever (hyperthermia) with Anesthesia Last Oral Intake Last Oral intake: Last Oral Intake NPO since 05:20 08/05/23 06:38 Meds taken in AM with sips of Yes 08/05/23 06:38 water? Meds patient instructed to tamoxifen, losartan 08/05/23 06:38 take am of surgery PONV PONV - dispatcher chief oil: PONV - dispatcher chief oil Female Yes 07/28/23 13:33 HX of Motion Sickness No 07/28/23 13:33 HX of N/V After Surgery No 07/28/23 13:33 Non-Smoker Yes 07/28/23 13:33 Duration of Surgery greater Yes 07/28/23 13:33 than 60 minutes Number of Risk Factors 3 07/28/23 13:33 PONV Score Moderate Risk 07/28/23 13:33 Height & Weight Height & Weight: Anesthesia: Height & Weight Height 5 ft 2 in 08/05/23 06:38 Weight: 68 kg 08/05/23 06:38 Body Mass Index (BMI) 27.3 08/05/23 06:38 Respiratory Assessment Respiratory Assessment - dispatcher chief oil: Respiratory Tract Infection Hx - dispatcher chief oil Hx Respiratory Tract Infection No 07/28/23 13:33 STOP Sleep Apnea STOP Sleep Apnea - dispatcher chief oil: STOP Sleep Apnea - dispatcher chief oil Hx Hypertension Yes: CONTROLLED WITH MED 07/28/23 13:33 Hx Sleep Apnea No 07/28/23 13:33 CPAP BIPAP Do you snore loudly (louder No 07/28/23 13:33 than talking or can be heard Do you often feel tired/ No 07/28/23 13:33 fatigued/ sleepy during daytime? Has anyone observed you stop No 07/28/23 13:33 breathing during sleep? STOP Results Negative 07/28/23 13:33 QUESTION #5 FULL TEXT : Do you snore loudly (louder than talking or can be heard through closed doors)? Tobacco Use History Tobacco Use History - dispatcher chief oil: Tobacco Use History - dispatcher chief oil Tobacco Use Smoking Status Former smoker 07/28/23 13:33 Hx Tobacco Use No 07/28/23 13:33 Years Smoking Packs Smoked per Day Smoking Cessation Date was No - quit smoking greater 07/28/23 13:33 within the last 15 years than 15 years ago Hx Smoking Cessation Date 02/09/00 07/28/23 13:33 Hx Smoking Cessation No 07/28/23 13:33 Counseling Hematologic Medial History Hematologic Hx - dispatcher chief oil: Hematologic Medical Hx - rn mental health Hx of Blood Transfusion No 07/28/23 13:33 Hx of Transfusion in last 3 No 07/28/23 13:33 Months Date of Last Transfusion (if within last 3 months) Ever experience any problems No 07/28/23 13:33 with transfusion(s)? Specify any problems Hx of Preganancy in last 3 No 07/28/23 13:33 Months Nurse Filling Out Transfusion DSCHRIBER 07/28/23 13:33 & Questions: Date: 07/28/23 07/28/23 13:33 Time: 13:34 07/28/23 13:33 Patient unable to answer at this time (ie. confused, unrespo /Reproduction History /Reproductive History - dispatcher chief oil: /Reproductive Hx- dispatcher chief oil Hx Now No 07/28/23 13:33 Gestational Age (in weeks): EDC: Hx Hx Para Hx Section SAB No 07/28/23 13:33 Active Medications Active Medications: Current Medications Generic Name Dose Route Start Last Admin Trade Name Freq PRN Reason Stop Dose Admin Cefazolin Sodium 2 gm/ Sodium 110 mls @ 150 mls/hr 08/05/23 07:30 Chloride IV 08/05/23 08:13 PREOP ONE Lactated Ringer's 1,000 mls @ 15 mls/hr 08/05/23 06:15 08/05/23 06:41 IV 15 mls/hr .Q48H ALLISON Administration PFSH Medical History Cancer Hypertension History of echocardiogram Cardiology follow-up encounter History of breast cancer Elevated CA 15-3 level Post-menopausal Anemia Former smoker Port-A-Cath in place Pruritus Encounter for monitoring cardiotoxic drug therapy Ingrown toenail DVT of axillary vein, acute left Nipple discharge Irregular menstrual bleeding Abnormal ultrasound of breast Abnormal mammogram of right breast Breast mass, right Home Medications ?Medication ?Instructions ?Recorded ?Last Taken ?Type losartan 50 mg tablet 50 mg PO DAILY #90 tabs 11/29/20 08/05/23 Rx clonidine HCl 0.1 mg tablet 0.1 mg PO QHS PRN HOT FLASHES 07/20/23 Unknown History tamoxifen 20 mg tablet 20 mg PO DAILY 07/28/23 08/05/23 History Allergy/AdvReac Type Severity Reaction Status Date / Time No Known Allergies Allergy Verified 08/05/23 06:37 Family History Father Diabetes Hypertension Cancer renal cell cancer/ nephrectomy Myocardial infarction, Onset Age: 76 from [place] Grandfather Parkinsons Grandmother Thyroid disorder Diabetes Breast cancer paternal grandmother Mother Thyroid disorder Surgical History Hx of abdominal hysterectomy History of lumpectomy of right breast History of right breast biopsy (07/2019) Hx of left knee surgery Hx of tonsillectomy Social History Smoking Status: Former smoker second hand exposure: No alcohol intake: never substance use type: does not use caffeine: Yes Review of Systems (Anesthesia) ROS Narrative System reviewed and no additional complaints, except as documented.
[2023-08-05] MEDS: Cefazolin 2 GM in 0.9% Normal Saline (100mL Bag) 100 ML IV (07:41)
[2023-08-05] MEDS: Methylene Blue 1% 100 MG/10 ML VIAL (08:13)
[2023-08-05] MEDS: Gentamicin 80 MG/2 ML Vial (08:13)
[2023-08-05] MEDS: EPINEPHrine Nasal 0.1% 30 ML Bottle NASAL (08:13)
[2023-08-05] MEDS: Bupivacaine 0.25% 30 ML Vial (10:20)
--- NOTE | 2023-08-05 10:37 | DCINST_ITS ---
Discharge Instructions Dressing / Incision Additional Dressing/Incision Instructions:: Follow the instructions given in the office. Follow Up Care Please Follow Up With: Joana Flores MD When: 1 week Test Results: Test results from this visit will be discussed in further detail at your follow- up appointment, if applicable. Discharge Plan Admission Attending Provider: Joana Flores Primary Care Provider: Yamila Roth Instructions Print Language: Marshallese Discharge Orders/Prescriptions Prescriptions: No Action losartan 50 mg tablet 50 mg PO DAILY Qty: 90 3RF clonidine HCl 0.1 mg tablet 0.1 mg PO QHS PRN (Reason: HOT FLASHES) Rx Instructions: Take 1-2 tablets PRN hot flashes tamoxifen 20 mg tablet 20 mg PO DAILY Rx Instructions: take 1 tablet by mouth daily Referrals / Follow Up: Yamila Roth MD [Primary Care Provider] - Disposition Disposition (needs filled in before D/C Order can be placed): Home, Self Care
--- NOTE | 2023-08-05 10:38 | PCM.POST.ANE ---
Anesthesia: Postop Eval I Current Vital Signs Temperature: 97.1 F Pulse Rate: 81 Blood Pressure: 133/76 Respiratory Rate: 18 Pulse Ox: 97 Oxygen Delivery Method: Room Air Assessment Airway patent: Yes Spontaneous unlabored respirations: Yes Mental status: Awake and Calm nausea: No Vomiting: No Anesthesia Complication: No Fluid Hydration Crystalloid volume administer (ml): 1,500 Total IV fluid infused: 1,500 Progress Note Anesthesia document: Postop Eval 1 completed: Yes
--- NOTE | 2023-08-05 10:39 | PCM.OPRPT ---
Problems Associated Problem List Diagnoses (1) Breast hypertrophy: (2) Status post right breast lumpectomy: (3) Breast asymmetry between cherokee breast and reconstructed breast: Report of Operation Date of Procedure: 08/05/23 Pre-Operative Diagnosis: Breast asymmetry; hypertrophy of the left breast; status post right breast lumpectomy and radiation Post-Operative Diagnosis: Same Surgery/Procedure Performed:: Left breast reduction Surgeon: Joana Flores spout tender: MALIA BRANCHelectrical solderer Type of Anesthesia: General Specimen's removed: Breast tissue Drains: None Estimated Blood Loss (mL): <20cc Description of Procedure: The patient presents with today with breast asymmetry status post right breast lumpectomy and radiation. She presents for a left breast reduction to improve symmetry. She is marked in the preop holding area prior to surgery. An informed consent was obtained prior to proceeding. The patient is aware of the potential risk and complications of surgery which include but are not exclusive of bleeding, infection, pain, numbness, asymmetry, scar tissue, skin necrosis, the need for further surgery, DVT, and even . She wishes to proceed. The patient was brought to the operating room and placed under general anesthesia in the supine position. Care is taken to pad all pressure points, apply sequential compression stockings, a warming blanket, and a Galvan catheter. The breast and chest are prepped and draped in the usual sterile fashion. We initially began with incising all the incisions. Following this, the pedicle is de-epithelialized. The medial and lateral inferior aspects of the breast are then removed using argon coagulation. Following this, the pedicle was from the upper flap. Dissection continues cephalad maintaining the upper flap at least 2 cm in thickness. When an adequate amount of dissection is performed to accommodate the pedicle and allow advancement, the wound is irrigated with antibiotic solution and checked for hemostasis which is controlled with cautery. The breast is then infolded and tacked together using silk suture and skin clips. Following this, Vicryl sutures were used in the inframammary crease to help with alignment. A 3-0 STRATAFIX suture is used to approximate the inframammary crease area in 3 layers. Approximately 4-1/2 cm above the inframammary crease, an opening is made for the nipple areola. This is brought out through this opening and initially tacked in place and aligned with a nylon suture. Following this, all skin edges were approximated with a running subcuticular strata fix suture. Quarter percent plain Marcaine is injected along the incisions. Xeroform is placed on the incisions followed by fluff gauze. She is placed in a surgery bra. She tolerated the procedure well was taken to the recovery area in an awake and stable condition. Needle and sponge counts are correct. Complications None Admit VTE Documentation VTE Present on Admission: Yes VTE Mechan Device Prophylaxis: SCD's
--- NOTE | 2023-08-05 11:08 | POSTOPAN2_ITS ---
Anesthesia Postop Eval I Sum Postop Eval Completion status Anesthesia document: Postop Eval 1 completed: Yes Anesthesia Postop Eval I Summary Anesthesia Postop Eval I Summary: Anesthesia Postop Eval I: Assessment Summary Airway patent Yes 08/05/23 10:38 MOLD [email or web address] Spontaneous unlabored Yes 08/05/23 10:38 MOLD CAR [email or web address] respirations Mental status Awake,Calm 08/05/23 10:38 MOLD CAR [email or web address] nausea No 08/05/23 10:38 MOLD CAR [email or web address] Vomiting No 08/05/23 10:38 MOLD CAR [email or web address] Anesthesia Postop Eval I: Fluid Summary Crystalloid volume administer 1,500 08/05/23 10:38 MOLD CAR [email or web address].MDOT (ml) Colloids volume administered ( ml) Blood Product volume administered (ml) Total IV fluid infused 1,500 08/05/23 10:38 MOLD CAR [email or web address] Anesthesia Postop Eval I: Summary Notes Anesthesia Complication No 08/05/23 10:38 MOLD [email or web address] Anesthesia Complication Comment: Post-operative progress note Anesthesia: Postop Eval II Evaluation Mental status: Awake Pain Level: 0 nausea: No Vomiting: No Complications Anesthesia Complication: No
--- NOTE | 2023-08-05 11:08 | PCM.POSTANE2 ---
Anesthesia Postop Eval I Sum Postop Eval Completion status Anesthesia document: Postop Eval 1 completed: Yes Anesthesia Postop Eval I Summary Anesthesia Postop Eval I Summary: Anesthesia Postop Eval I: Assessment Summary Airway patent Yes 08/05/23 10:38 TREE TRIMMER [email or web address] Spontaneous unlabored Yes 08/05/23 10:38 TREE TRIMMER [email or web address] respirations Mental status Awake,Calm 08/05/23 10:38 TREE TRIMMER [email or web address] nausea No 08/05/23 10:38 TREE TRIMMER [email or web address] Vomiting No 08/05/23 10:38 TREE TRIMMER [email or web address] Anesthesia Postop Eval I: Fluid Summary Crystalloid volume administer 1,500 08/05/23 10:38 TREE TRIMMER [email or web address] (ml) Colloids volume administered ( ml) Blood Product volume administered (ml) Total IV fluid infused 1,500 08/05/23 10:38 TREE TRIMMER [email or web address] Anesthesia Postop Eval I: Summary Notes Anesthesia Complication No 08/05/23 10:38 TREE TRIMMER [email or web address] Anesthesia Complication Comment: Post-operative progress note Anesthesia: Postop Eval II Evaluation Mental status: Awake Pain Level: 0 nausea: No Vomiting: No Complications Anesthesia Complication: No
[2023-08-05] MEDS: 0.9% Saline Lock 10 ML Syringe IV (11:35)
== END 2023-08-05 14:25 | disposition home or self-care (01) ==
LOC: SDC 05:59 → AC 06:00
PROVIDERS: PCP Family Medicine; Referring Provider Plastic Surgery; Visit Provider Plastic Surgery
PROC: 0H0U0ZZ Alteration of Left Breast, Open Approach (ICD-10-PCS; CPT 19318; principal; 2023-08-05 07:15)
DX: N62 Hypertrophy of breast (principal); I10 Essential (primary) hypertension; Z79.899 Other long term (current) drug therapy
CPT/HCPCS: 19318; 00402; 88305; J7120; A4216; J2405

== ENCOUNTER 2023-08-27 09:28 | Outpatient (CLI) | payer BC, SELFPAY ==
[2023-08-27 10:29] LABS: Absolute Lymphocyte Count 1.04 X10^3/uL (0.83-4.51); Absolute Neutrophil Count 2.5 X10^3/uL (2.0-7.7); Basophil# 0.03 X10^3/uL; Basophil% 0.7 % (0-1); Eosinophil# 0.12 X10^3/uL; Hematocrit 40.1 % (37-47); Lymphocyte # 1.04 X10^3/ul (0.83-4.51); Lymphocyte % 25.9 % (19-41); Mean Corp Hgb Conc 32.4 g/dL (32-36); Mean Corpuscular Hgb 29.7 pg (27.0-32.0); Mean Corpuscular Volume 91.6 fL (81-99); Mean Platelet Vol. 10.9 fl (6.2-12.0); Monocyte# 0.35 X10^3/uL; Monocyte% 8.7 % (0-10); NRBC Flagged by Analyzer 0 % (0-5); Neutrophil # 2.47 X10^3/uL (2.7-7.7); Neutrophil % 61.7 % (47-70); Platelet Count 254 K/mm3 (150-450); RBC Distribution Width CV 12.8 % (11.6-14.6); RBC Distribution Width SD 42.8 fl (35.1-43.9); Red Blood Count 4.38 M/mm3 (4.2-5.4)
[2023-08-27 11:10] LABS: AST(SGOT) 16 U/L (15-37); Alanine Aminotransfer ALT/SGPT 21 U/L (13-56); Albumin, Serum 3.6 g/dL (3.2-5.0); Alkaline Phosphatase 90 U/L (45-117); Anion Gap 5 (5-15); BUN 8 mg/dL (7-18); BUN/Creat Ratio 10.6 RATIO (10-20); Calcium,Total 9.3 mg/dL (8.5-10.1); Chloride 107 mmol/L (98-107); Creatinine, Serum 0.75 mg/dL (0.55-1.02); EST Glomerular Filtration Rate 86 mL/min (>60); Est Glom Filt Rate - Afr Amer 104 mL/min (>60); Globulin 3.6 g/dL (2.2-4.2); Glucose 104 mg/dL (74-106); Potassium 3.6 mmol/L (3.5-5.1); Protein, Total 7.2 g/dL (6.4-8.2); Sodium Level 142 mmol/L (136-145)
[2023-08-28 09:08] LABS: CA 15-3 27.6 U/mL (0.0-25.0); CA 27.29 27.1 U/mL (0.0-38.6); Carcinoembryonic Antigen 2.1 ng/mL (0.0-4.7)
== END 2023-08-27 23:59 | disposition home or self-care (01) ==
LOC: MTLAB 09:29
PROVIDERS: PCP Family Medicine; Referring Provider Nurse Practitioner Family; Visit Provider Nurse Practitioner Family
DX: R97.8 Other abnormal tumor markers (principal); Z85.3 Personal history of malignant neoplasm of breast
CPT/HCPCS: 80053; 82378; 85025; 86300

== ENCOUNTER → 2023-11-19 | Outpatient (CLI) | payer BC, SELFPAY ==
--- NOTE | 2023-11-19 08:26 | BI_ITS ---
MAMMOGRAPHY - BILATERAL SCREENING REASON FOR EXAM: Female, 53 years old. Routine annual screening examination. PERTINENT HISTORY: Personal history of breast cancer. Prior right lumpectomy with chemotherapy and radiation therapy. Right breast reconstruction. Aunt with breast cancer. TECHNIQUE: Digital bilateral breast brianna (3D mammographic acquisition) in the CC and MLO projections. 2-D mediolateral oblique (MLO) and craniocaudad (CC) views of both breasts were obtained. CAD: Full Field Digital Mammography with Computer Added Detection was performed. COMPARISON: Comparison is made with prior study dated November 12, 2022 and October 31, 2021. FINDINGS: Breast Composition: The breasts are heterogeneously dense, which may obscure small masses. There are no dominant masses or suspicious calcifications. Once again, the patient status post lumpectomy in the deep upper lateral aspect of the right breast with resultant postoperative scarring and breast deformity. This is unchanged. No other significant abnormalities are identified. There has been no significant change since the prior study. BI/SCRN MAMM (CAD)W/BRIANNA BILAT IMPRESSION: Stable bilateral screening mammogram. Yearly follow-up mammogram recommended. (A) ASSESSMENT CATEGORY: BIRADS Category 2: Benign. A letter regarding these results will be sent to the patient by the facility within 30 days. Approximately 10% of breast cancers are not detected by mammography. A normal mammogram should not delay biopsy of a clinically suspicious abnormality. [id number] Electronically Signed: Guillaume Leroy MD at 9:42 EDT ,
== END | disposition home or self-care (01) ==
LOC: OPBI 08:26
PROVIDERS: PCP Family Medicine; Referring Provider Internal Medicine Medical Oncology; Visit Provider Internal Medicine Medical Oncology
DX: Z12.31 Encounter for screening mammogram for malignant neoplasm of breast (principal); Z85.3 Personal history of malignant neoplasm of breast; Z92.21 Personal history of antineoplastic chemotherapy; Z92.3 Personal history of irradiation; Z80.3 Family history of malignant neoplasm of breast
CPT/HCPCS: 77063; 77067

== ENCOUNTER → 2024-01-14 | Outpatient (CLI) | payer BC, SELFPAY ==
--- NOTE | 2024-01-14 07:54 | ECHODONC_ITS ---
Reason For Study: ANTINEOPLASTIC CHEMO Procedure This was a 2D Doppler, Color Flow transthoracic echocardiogram. Myocardial strain analysis was performed in this exam to aid in the assessment of cardiac function. Exam performed in department. Left Ventricle Normal LV size. Left ventricular systolic function is normal. The left ventricular ejection fraction is 60 %. No regional wall motion abnormalities noted. Right Ventricle Normal RV size. Normal systolic function. Atria Normal left atrium. Normal right atrium. Mitral Valve Normal mitral valve. Mild (1+) eccentric mitral valve insufficiency. Tricuspid Valve Normal tricuspid valve. Aortic Valve Trisinus/trileaflet aortic valve. Pulmonic Valve Normal pulmonic valve. Great Vessels Normal aortic root. The pulmonary artery is normal size. Inferior vena cava collapse with respiration. Pericardium/Pleural No pericardial effusion. MMode/2D Measurements & Calculations LVIDd: 3.9 cm IVSd: 0.99 cm Ao root diam: 3.1 cm LVIDs: 2.8 cm LVPWd: 0.80 cm RVDd: 3.2 cm FS: 30.0 % LAV(MOD-bp): 36.8 ml LVAd ap4: 24.7 cm2 SV(MOD-sp4): 37.6 ml LAV(MOD-bp) Indexed: 21.8 ml/m2 LVLd ap4: 7.6 cm SI(MOD-sp4): 22.2 ml/m2 LAV(MOD-sp2): 34.4 ml EDV(MOD-sp4): 65.3 ml LAV(MOD-sp4): 39.6 ml EDV(sp4-el): 68.3 ml LVAs ap4: 14.5 cm2 LVLs ap4: 6.3 cm ESV(MOD-sp4): 27.7 ml ESV(sp4-el): 28.3 ml EF(MOD-sp4): 57.6 % EF(sp4-el): 58.5 % SV(sp4-el): 40.0 ml LA A4 area: 16.3 cm2 LA dimension(2D): 3.4 cm RA A4 area: 13.5 cm2 TAPSE: 2.0 cm Time Measurements MV dec time: 0.24 sec Doppler Measurements & Calculations MV E max brendon: 83.4 cm/sec Lat Peak E' Brendon: 12.4 cm/sec Med Peak E' Brendon: 10.0 cm/sec MV A max brendon: 70.7 cm/sec E/E' lat: 6.7 E/E' med: 8.3 MV E/A: 1.2 Ao V2 max: 158.0 cm/sec LV V1 max: 115.8 cm/sec PA V2 max: 97.4 cm/sec Ao max P.0 mmHg LV V1 max P.4 mmHg TR max brendon: 224.4 cm/sec TR max P.1 mmHg ECHO/ONC Echo Complete Interpretation Summary Normal LV size. Left ventricular systolic function is normal. The left ventricular ejection fraction is 60 %. The global longitudinal strain is normal. The global longitudinal strain = -17. 9 % (normal). Structurally normal valves. Ordering Physician: Aroldo Mcconnell Referring Physician: JHONY LO Performed By: Judy Lu RDCS
== END | disposition home or self-care (01) ==
LOC: CVS 07:54
PROVIDERS: PCP Family Medicine; Referring Provider Internal Medicine Cardiovascular Disease; Visit Provider Internal Medicine Cardiovascular Disease
DX: I34.0 Nonrheumatic mitral (valve) insufficiency (principal)
CPT/HCPCS: 93306; 93356

== ENCOUNTER → 2024-05-12 | Outpatient (CLI) | payer BC, SELFPAY ==
[2024-05-12 17:48] LABS: Absolute Neutrophil Count 2.6 X10^3/uL (2.0-7.7); Basophil# 0.06 X10^3/uL; Basophil% 1.4 % (0-1); Eosinophil# 0.07 X10^3/uL; Eosinophils% 1.6 % (0-5); Hematocrit 39.1 % (37-47); Hemoglobin 12.8 g/dL (12.0-15.0); Lymphocyte % 27.7 % (19-41); Mean Corp Hgb Conc 32.7 g/dL (32-36); Mean Corpuscular Hgb 29.8 pg (27.0-32.0); Mean Corpuscular Volume 90.9 fL (81-99); Mean Platelet Vol. 11.6 fl (6.2-12.0); Monocyte# 0.43 X10^3/uL; Monocyte% 9.9 % (0-10); NRBC Flagged by Analyzer 0 % (0-5); Neutrophil # 2.57 X10^3/uL (2.7-7.7); Neutrophil % 59.4 % (47-70); Platelet Count 245 K/mm3 (150-450); RBC Distribution Width CV 12.9 % (11.6-14.6); RBC Distribution Width SD 43.2 fl (35.1-43.9); White Blood Count 4.3 K/mm3 (4.4-11.0)
[2024-05-12 18:11] LABS: ALB/GLOB Ratio 1.8 RATIO (0.9-2.4); AST(SGOT) 21 U/L (<=31); Alanine Aminotransfer ALT/SGPT 19 U/L (<=34); Albumin, Serum 4.4 g/dL (3.5-5.0); Alkaline Phosphatase 99 U/L (35-104); Anion Gap 12 (5-15); BUN 9 mg/dL (4-19); Calcium,Total 9.8 mg/dL (7.6-11.0); Carbon Dioxide 24.1 mmol/L (21.0-32.0); Chloride 106 mmol/L (98-108); Creatinine, Serum 0.66 mg/dL (0.70-1.20); EST Glomerular Filtration Rate 105 (>60); Globulin 2.5 g/dL (2.2-4.2); Glucose 96 mg/dL (70-99); LDH 226 U/L (84-246); Potassium 3.9 mmol/L (3.3-5.1); Protein, Total 6.8 g/dL (5.9-8.4); Sodium Level 142 mmol/L (133-145)
[2024-05-14 11:07] LABS: CA 15-3 24.5 U/mL (0.0-25.0); CA 27.29 34.5 U/mL (0.0-38.6)
== END | disposition home or self-care (01) ==
LOC: MFPLAB 13:38
PROVIDERS: PCP Family Medicine; Visit Provider Internal Medicine Medical Oncology
DX: C50.411 Malignant neoplasm of upper-outer quadrant of right female breast (principal); Z17.0 Estrogen receptor positive status [ER+]
CPT/HCPCS: 36415; 80053; 83615; 85025; 86300

== ENCOUNTER → 2024-09-18 | Outpatient (CLI) | payer BC, SELFPAY ==
[2024-09-18 18:07] LABS: Hematocrit 40.7 % (37-47); Hemoglobin 13.1 g/dL (12.0-15.0); Immature Granulocytes Count 0.010 X10^3/uL (0.0-0.0); Mean Corp Hgb Conc 32.2 g/dL (32-36); Mean Corpuscular Volume 91.5 fL (81-99); Mean Platelet Vol. 11.5 fl (6.2-12.0); NRBC Flagged by Analyzer 0 % (0-5); Platelet Count 234 K/mm3 (150-450); RBC Distribution Width CV 12.7 % (11.6-14.6); RBC Distribution Width SD 42.5 fl (35.1-43.9); Red Blood Count 4.45 M/mm3 (4.2-5.4); White Blood Count 4.3 K/mm3 (4.4-11.0)
[2024-09-18 18:31] LABS: AST(SGOT) 20 U/L (<=31); Alanine Aminotransfer ALT/SGPT 21 U/L (<=34); Albumin, Serum 4.6 g/dL (3.5-5.0); Alkaline Phosphatase 102 U/L (35-104); Anion Gap 11 (5-15); BUN 11 mg/dL (4-19); BUN/Creat Ratio 13.9 RATIO (10-20); Calcium,Total 10.0 mg/dL (7.6-11.0); Carbon Dioxide 28.3 mmol/L (21.0-32.0); Chloride 103 mmol/L (98-108); Globulin 2.3 g/dL (2.2-4.2); Glucose 112 mg/dL (70-99); LDH 223 U/L (84-246); Potassium 3.6 mmol/L (3.3-5.1)
[2024-09-20 07:08] LABS: CA 15-3 22.4 U/mL (0.0-25.0); CA 27.29 34.1 U/mL (0.0-38.6)
== END | disposition home or self-care (01) ==
LOC: MFPLAB 16:05
PROVIDERS: PCP Family Medicine; Visit Provider Internal Medicine Medical Oncology
DX: C50.911 Malignant neoplasm of unspecified site of right female breast (principal); C77.1 Secondary and unspecified malignant neoplasm of intrathoracic lymph nodes
CPT/HCPCS: 36415; 80053; 83615; 85025; 86300

== ENCOUNTER → 2024-11-24 | Outpatient (CLI) | payer BC, SELFPAY ==
--- NOTE | 2024-11-24 07:59 | BI_ITS ---
EXAM: SCRN MAMM (CAD)W/BRIANNA BILAT DATE: 11/24/2024 CLINICAL HISTORY: F, Age 54 y/o, SCREENING TECHNIQUE: Procedure Code: BISMWCADBTOM Modality: MG Procedure: SCRN MAMM (CAD)W/BRIANNA BILAT COMPARISON: Prior exam(s) dated 11/19/2023, 11/12/2022. FINDINGS: TISSUE DENSITY: The breasts are heterogeneously dense, which may obscure small masses. The mammogram demonstrates that the patient has dense breasts. Supplemental screening with whole breast ultrasound or MRI may be considered for further evaluation. Bilateral Breast Mammographic Findings: No significant masses, calcifications or other abnormalities are identified. BI/SCRN MAMM (CAD)W/BRIANNA BILAT IMPRESSION: There is no mammographic evidence of malignancy. OVERALL FINAL ASSESSMENT BI-RADS 1: NEGATIVE. RECOMMENDATION: Routine annual follow-up in 1 Year Additional Recommendation none A letter with findings and recommendations will be mailed to the patient. Reading Location: [id number]
--- NOTE | 2024-11-24 07:59 | BI_ITS ---
EXAM: SCRN MAMM (CAD)W/BRIANNA BILAT DATE: 11/24/2024 CLINICAL HISTORY: F, Age 54 y/o, SCREENING TECHNIQUE: Procedure Code: BISMWCADBTOM Modality: MG Procedure: SCRN MAMM (CAD)W/BRIANNA BILAT COMPARISON: Prior exam(s) dated 11/19/2023, 11/12/2022. FINDINGS: TISSUE DENSITY: The breasts are heterogeneously dense, which may obscure small masses. The mammogram demonstrates that the patient has dense breasts. Supplemental screening with whole breast ultrasound or MRI may be considered for further evaluation. Bilateral Breast Mammographic Findings: No significant masses, calcifications or other abnormalities are identified. BI/SCRN MAMM (CAD)W/BRIANNA BILAT IMPRESSION: There is no mammographic evidence of malignancy. OVERALL FINAL ASSESSMENT BI-RADS 1: NEGATIVE. RECOMMENDATION: Routine annual follow-up in 1 Year Additional Recommendation none A letter with findings and recommendations will be mailed to the patient. Reading Location: [id number]
== END | disposition home or self-care (01) ==
LOC: OPBI 07:57
PROVIDERS: PCP Family Medicine; Referring Provider Internal Medicine Medical Oncology; Visit Provider Internal Medicine Medical Oncology
DX: Z12.31 Encounter for screening mammogram for malignant neoplasm of breast (principal)
CPT/HCPCS: 77063; 77067

== ENCOUNTER 2025-02-06 08:20 | Emergency (ER) | payer BC, SELFPAY ==
[2025-02-06 08:21] VITALS: BP 161/98; PULSE 70; RESP 14; TEMP 36.6; O2SAT 99
[2025-02-06 08:23] VITALS: BMI 28.7
--- NOTE | 2025-02-06 08:34 | CT_ITS ---
PROCEDURE: ABDOMEN/PELVIS W IV CONT ONLY 02/06/2025 REASON FOR EXAM: RLQ PAIN TECHNIQUE: Procedure Code: [id number] Modality: CT Procedure: ABDOMEN/PELVIS W IV CONT ONLY Coronal and Sagittal reconstruction series were provided. CONTRAST: Isovue 370 VOLUME: 100 mL One or more dose reduction techniques were used (e.g., Automated exposure control, adjustment of the mA and/or kV according to patient size, use of iterative reconstruction technique. RADIATION DOSE SUMMARY: DLP: 737.92 mGycm COMPARISON: CT chest/abdomen/pelvis 07/02/2023 FINDINGS: Lower chest: Lung bases are clear. Liver: Normal size. Mild hepatic steatosis. No enhancing lesion. Gallbladder and biliary ducts: Unremarkable gallbladder. No pericholecystic fluid. Normal caliber intrahepatic and common bile ducts. Pancreas:Unremarkable. No ductal dilatation or mass. No peripancreatic fluid. Spleen: Unremarkable. Adrenal glands: Unremarkable. Kidneys and ureters: Normal renal size, morphology, and enhancement. Mild nonspecific hydroureter is bilaterally, [id number]-[id number]-left. No nephroureterolithiasis. No renal mass. Urinary bladder: Unremarkable. GI: Unremarkable stomach and duodenum. Normal caliber small bowel and large bowel.No evidence for small bowel obstruction. Appendix: Unremarkable. Peritoneum: No ascites. No pneumoperitoneum. Ovoid fat density structure adjacent to the right colon with surrounding fat stranding and small amount of fluid (series 2, image 56). No evidence of abscess. Lymph nodes: No lymphadenopathy. Vasculature: Portal, splenic, and superior mesenteric veins are patent. No abdominal aortic aneurysm. Reproductive organs: Hysterectomy. No adnexal mass. Musculoskeletal and soft tissues: No aggressive osseous lesions. Mild degenerative changes in the visualized spine.Unremarkable soft tissues. CT/Abdomen/Pelvis W IV Cont ONLY IMPRESSION: 1. Findings compatible with epiploic appendagitis adjacent to right colon. 2. No evidence of acute appendicitis. 3. Mild hepatic steatosis. Reading Location: [id number]
--- NOTE | 2025-02-06 08:35 | EX.ED.DYSGE1 ---
HPI History of Present Illness Chief Complaint: Abd Pain Narrative Narrative: Patient 54-year-old female with past medical history of breast cancer, anemia, DVT who presented to the emergency department with a chief complaint of abdominal pain. Patient states that her abdominal pain started on Wednesday and had been progressively worsening. 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 Patient denies any fevers, nausea vomiting diarrhea. She states that she had a bowel movement earlier today. Denies any abdominal surgeries PFSH [facility] Medical History (Updated 02/06/25 @ 09:[address] Jacobo Benson, DO) DVT (deep venous thrombosis) Screening for breast cancer Cancer Hypertension History of echocardiogram Cardiology follow-up encounter History of breast cancer Elevated CA 15-3 level Post-menopausal Anemia Former smoker Port-A-Cath in place Pruritus Encounter for monitoring cardiotoxic drug therapy Ingrown toenail DVT of axillary vein, acute left Nipple discharge Irregular menstrual bleeding Abnormal ultrasound of breast Abnormal mammogram of right breast Breast mass, right Home Medications ?Medication ?Instructions ?Recorded ?Last Taken ?Type losartan 50 mg tablet 50 mg PO DAILY #90 tabs 11/29/20 08/05/23 Rx clonidine HCl 0.1 mg tablet 0.1 mg PO QHS PRN HOT FLASHES 07/20/23 Unknown History tamoxifen 20 mg tablet 20 mg PO DAILY 07/28/23 08/05/23 History lysine 500 mg tablet (L-Lysine) 500 mg PO QDAY 11/17/24 Unknown History Allergy/AdvReac Type Severity Reaction Status Date / Time No Known Allergies Allergy Verified 02/06/25 08:23 Family History Father Diabetes Hypertension Cancer renal cell cancer/ nephrectomy Myocardial infarction, Onset Age: 76 from [place] Grandfather Parkinsons Grandmother Thyroid disorder Diabetes Breast cancer paternal grandmother Mother Thyroid disorder Surgical History History of reduction surgery of left breast Hx of abdominal hysterectomy History of lumpectomy of right breast History of right breast biopsy (07/2019) Hx of left knee surgery Hx of tonsillectomy Social History Smoking Status: Former smoker second hand exposure: No alcohol intake: never substance use type: does not use caffeine: Yes ROS ROS ED ROS Narrative Constitutional: Denies fevers, chills, headaches Cardiovascular: Denies chest pain Respiratory: Denies shortness of breath Abdomen: Complains of abdominal pain as noted above denies nausea vomiting diarrhea : Denies urinary symptoms Neurological: Denies any numbness, weakness, tingling Musculoskeletal: Denies back pain Skin: Denies any rashes or lesions EXAM Physical Exam Narrative Exam Narrative: General: Patient is lying in bed rest comfortably did not appear to be in acute Head: Atraumatic, normocephalic Eyes: PERRL bilaterally, EOMI bilaterally, no conjunctival injection noted Neck: Soft, supple and trachea Cardiovascular: Regular rate and rhythm Respiratory: Clear to auscultation bilaterally Abdomen: Soft, nondistended, tenderness to palpation in the right upper quadrant and the right lower quadrant no rebound or guarding on exam Extremities: +5/5 strength in the bilateral upper and lower extremities Neurological: Patient following commands knew that she was at [facility] year is 2024 Skin: Warm, dry, intact no rashes lesions noted Const Vital Signs: 02/06/25 08:21 Temperature 98 F Temperature Source Oral Pulse Rate 70 Respiratory Rate 14 Blood Pressure 161/98 H Blood Pressure Mean 119 Pulse Ox 99 Oxygen Delivery Method Room Air MDM MDM MDM Narrative Medical decision making narrative: Patient is a 54-year-old female who presented to the emergency department the chief complaint of abdominal pain. On the differential diagnose includes but limited to cholecystitis, pancreatitis, appendicitis, UTI, pyelonephritis, nephrolithiasis. Once workup is obtained reviewed she will be reevaluated. Patient be given IV fluids she declined pain medication as well as nausea medication at this point in time. Patient's CBC was reviewed and showed a white blood count of 6.1, hemoglobin 13.1, plate count of 189. Patient sodium was noted to be 142, potassium normal at 3.8, creatinine was 0.63. Patient's AST and ALT were 20 and 18 respectively with a normal total bilirubin of 0.64. Patient lipase was noted be 86, urinalysis reviewed showed 500 leukocyte esterase 5-10 white cells with no bacteria noted. Patient CT ab pelvis with IV contrast reviewed and showed findings compatible with epiploic appendagitis adjacent to the right: No evidence of acute appendicitis mild hepatic steatosis noted. I did discuss the results with the patient and she would like to go home at this point time. I did offer her a dose of ibuprofen/Toradol prior to discharge and she states that she does not want any pain medication. Patient was offered work note and she states that she does not need a work note. She was encouraged to continue supportive care and return with worsening symptoms or any concerns. She is agreeable with this plan all question concerns answered she was discharged home in stable condition Lab Data Labs: Laboratory Results - last 24 hr 02/06/25 02/06/25 08:30 08:50 WBC 6.1 RBC 4.40 Hgb 13.1 Hct 39.4 MCV 89.5 MCH 29.8 MCHC 33.2 RDW Std Deviation 42.2 RDW Coeff of Sean 12.8 Plt Count 189 MPV 11.0 Immature Gran % (Auto) 0.200 Neut % (Auto) 77.5 H Lymph % (Auto) 11.7 L [place] % (Auto) 9.1 Eos % (Auto) 0.7 Baso % (Auto) 0.8 Absolute Neuts (auto) 4.7 Absolute Lymphs (auto) 0.71 L Nucleated RBC % 0 Sodium 142 Potassium 3.8 Chloride 107 H Carbon Dioxide 25.8 Anion Gap 9 BUN 10 Creatinine 0.63 L Estim Creat Clear Calc 94.34 Est GFR (MDRD) Non-Af 105 BUN/Creatinine Ratio 15.0 Glucose 104 H Calcium 9.6 Total Bilirubin 0.64 AST 20 ALT 18 Alkaline Phosphatase 88 Total Protein 6.5 Albumin 4.2 Globulin 2.2 Albumin/Globulin Ratio 1.9 Lipase 86 H Urine Color Straw Urine Clarity Clear Urine pH 6.0 Ur Specific [place] 1.010 Urine Protein Negative Urine Glucose (UA) Normal Urine Ketones Negative Urine Occult Blood 10 H Urine Nitrite Negative Urine Bilirubin Negative Urine Urobilinogen Normal Ur Leukocyte Esterase 500 H Urine RBC 0 SEEN Urine WBC 5-10 SEEN Ur Squamous Epith Cells 5-10 SEEN Ur Transition Epith Cell 0-5 SEEN Urine Bacteria 0 SEEN Urine Mucus 0 SEEN Radiography Diagnostic Testing: Clinical Impression(s) from Imaging Studies Abdomen/Pelvis CT 02/06/25 08:34 IMPRESSION: 1. Findings compatible with epiploic appendagitis adjacent to right colon. 2. No evidence of acute appendicitis. 3. Mild hepatic steatosis. Reading Location: [facility] Discharge Plan Triage Chief Complaint: Abd Pain ED Provider: Jacobo Benson Dx/Rx/DC Orders Clinical Impression: Abdominal pain, Epiploic appendagitis, History of breast cancer Prescriptions: No Action losartan 50 mg tablet 50 mg PO DAILY Qty: 90 3RF clonidine HCl 0.1 mg tablet 0.1 mg PO QHS PRN (Reason: HOT FLASHES) Rx Instructions: Take 1-2 tablets PRN hot flashes lysine [L-Lysine] 500 mg tablet 500 mg PO QDAY tamoxifen 20 mg tablet 20 mg PO DAILY Rx Instructions: take 1 tablet by mouth daily Primary Care Provider: Mina Bonner Referrals: Mina Bonner MD [Primary Care Provider, Family Practice] Activity Restrictions/Additional Instructions: Follow-up with your primary care physician outpatient setting. Return with worsening symptoms or any other concerns. You were diagnosed with epiploic appendagitis no evidence of acute appendicitis on your CT scan. Rotate Tylenol and ibuprofen [id number] when you do this you can take something every 3 hours for pain max dose of Tylenol in 24 hours 4000 mg max dose of ibuprofen in 24 hours 3200 mg. Print Language: [place] Disposition Disposition: Home, Self Care
[2025-02-06 08:37] LABS: Mucous, Urine 0 SEEN /hpf (<or=2+); Red Blood Cells-Urine 0 SEEN /hpf (0-5)
[2025-02-06 08:39] LABS: Color, Urine Straw (Yellow); Glucose, Dipstick Normal (Normal); Ketone-Dipstick Negative (Negative); Leukocyte Esterase-Dipstick 500 /ul (Negative); Nitrite-Dipstick Negative (Negative); Occult Blood-Urine 10 /ul (Negative); Protein-Dipstick Negative (Negative); Specific Gravity, Urine 1.010 (1.002-1.030); Urine Bilirubin Dipstick Negative (Negative)
[2025-02-06 08:49] LABS: Squamous Epithelial Cells - UA 5-10 SEEN /hpf (5-10); Transitional Epithelial - Ur 0-5 SEEN /hpf (0-5)
[2025-02-06] MEDS: 0.9% Normal Saline (1000mL) 1,000 ML 999 ML IV (08:52)
[2025-02-06 08:58] LABS: Hematocrit 39.4 % (37-47); Hemoglobin 13.1 g/dL (12.0-15.0); Immature Granulocytes Count 0.010 X10^3/uL (0.0-0.0); Mean Corp Hgb Conc 33.2 g/dL (32-36); Mean Corpuscular Volume 89.5 fL (81-99); Mean Platelet Vol. 11.0 fl (6.2-12.0); NRBC Flagged by Analyzer 0 % (0-5); Platelet Count 189 K/mm3 (150-450); RBC Distribution Width CV 12.8 % (11.6-14.6); RBC Distribution Width SD 42.2 fl (35.1-43.9); Red Blood Count 4.40 M/mm3 (4.2-5.4); White Blood Count 6.1 K/mm3 (4.4-11.0)
[2025-02-06 09:23] LABS: AST(SGOT) 20 U/L (<=31); Alanine Aminotransfer ALT/SGPT 18 U/L (<=34); Albumin, Serum 4.2 g/dL (3.5-5.0); Alkaline Phosphatase 88 U/L (35-104); Anion Gap 9 (7-18); BUN 10 mg/dL (4-19); BUN/Creat Ratio 15.0 RATIO (10-20); Calcium,Total 9.6 mg/dL (7.6-11.0); Carbon Dioxide 25.8 mmol/L (20.0-29.0); Chloride 107 mmol/L (96-106); Estimated Creatinine Clearance 94.34 ml/min (50-250); Globulin 2.2 g/dL (2.2-4.2); Glucose 104 mg/dL (70-99); Lipase 86 U/L (13-75); Potassium 3.8 mmol/L (3.5-5.1)
[2025-02-06 10:11] VITALS: BP 145/78; PULSE 88; RESP 16; TEMP 36.6; O2SAT 95
== END 2025-02-06 10:12 | disposition home or self-care (01) ==
PROVIDERS: Emergency Provider Emergency Medicine; PCP Family Medicine; Visit Provider Emergency Medicine
DX: R10.9 Unspecified abdominal pain (principal); Z87.891 Personal history of nicotine dependence; I10 Essential (primary) hypertension; K63.89 Other specified diseases of intestine; Q43.8 Other specified congenital malformations of intestine; Z85.3 Personal history of malignant neoplasm of breast; Z79.899 Other long term (current) drug therapy; Z90.710 Acquired absence of both cervix and uterus
CPT/HCPCS: 36591; 74177; 80053; 81001; 83690; 85025; 96360; 99284; Q9967; A4216